=== PATIENT | male | born 1940 | race Caucasian/White ===

== ENCOUNTER → 2017-05-06 14:37 | Outpatient (CLI) | payer MEDICARE, OTHER, SELFPAY ==
--- NOTE | 2017-05-06 | BLA_PTH ---
PATIENT: YUMIKO ROD LOC: [facility] U#:[id number] AGE/SX: 84/M ROOM: RE05/06/[address]: Dr. Didier Potter MD : [id number] BED: DIS: SPEC #: [id number] RECD: 05/07/17 09:14 STATUS: MARGO BRIGITTE #: [id number] LUIS FELIPE: 05/06/17 00:[address]: Didier Potter DEPT: SURGICAL PATHOLOGY RECD BY: Theodore Barros ENTERED: 05/07/17 09:14 SP TYPE: BLADDER BX OTHR DR: Dr. Trevon Astudillo MD Tissues: Urinary bladder, NOS Procedures: Surgery Specimen Level IV HEADER OPERATION: Bladder biopsy PRE-OP DIAGNOSIS: History bladder CA TISSUE SUBMITTED: Bladder biopsy MICROSCOPIC DIAGNOSIS Urinary bladder, biopsy: Chronic cystitis. Urothelium with reactive change. AM:sharita 05/07/17 COMMENT Case has been reviewed in consultation with Dr. Meraz who concurs with the above diagnosis. IDC:SJ MICROSCOPIC DESCRIPTION Slides are reviewed. GROSS DESCRIPTION Received is one container labeled with the patient's name and not further designated. The specimen consists of one irregular fragment of light burns soft tissue that measures 0.1 cm in greatest dimension. The specimen is totally submitted in one cassette. / KAVYA:sharita 05/06/17 TC:3 CPT: 36684
== END ==
PROVIDERS: Family Provider Family Medicine; PCP Family Medicine; Visit Provider Urology
DX: Z85.51 Personal history of malignant neoplasm of bladder (principal)
CPT/HCPCS: 88305

== ENCOUNTER → 2017-08-07 09:56 | Outpatient (CLI) | payer MEDICARE, OTHER, SELFPAY ==
[2017-08-07 12:00] LABS: Hematocrit 45.6 % (40-54); Hemoglobin 15.1 g/dl (13.0-16.5); Mean Corp Hgb Conc 33.1 g/gl (32-36); Mean Corpuscular Hgb 33.7 pg (27.0-32.0); Mean Corpuscular Volume 101.8 fL (80-94); Mean Platelet Vol. 9.8 fl (6.2-12.0); Platelet Count 198 K/mm3 (150-450); RBC Distribution Width SD 48.5 fl (35.1-43.9); Red Blood Count 4.48 M/mm3 (4.6-6.2); Scan Indicated on CBC? Y/N NO; White Blood Count 7.7 K/mm3 (4.4-11.0)
[2017-08-07 12:45] LABS: AST(SGOT) 20 U/L (15-37); Alanine Aminotransfer ALT/SGPT 27 U/L (16-61); Albumin, Serum 3.8 g/dL (3.2-5.0); Alkaline Phosphatase 75 U/L (45-117); Anion Gap 9 (5-15); BUN 37 mg/dL (7-18); BUN/Creat Ratio 21.3 RATIO (10-20); Calcium,Total 9.2 mg/dL (8.5-10.1); Chloride 108 mmol/L (98-107); Cholesterol 140 mg/dL (200); Creatinine, Serum 1.74 mg/dL (0.70-1.30); EST Glomerular Filtration Rate 41 mL/min (>60); Est Glom Filt Rate - Afr Amer 50 mL/min (>60); Globulin 3.9 g/dL (2.2-4.2); Glucose 82 mg/dL (74-106); High Density Lipoprotein 55 mg/dL; Potassium 4.6 mmol/L (3.5-5.1); Protein, Total 7.7 g/dL (6.4-8.2); Sodium Level 140 mmol/L (136-145); Thyroid Stim Hormone (TSH) 0.87 uIU/mL (0.358-3.74); Triglycerides 100 mg/dL; Very Low Density Lipoprotein 20 mg/dL (5-40)
== END ==
PROVIDERS: Family Provider Family Medicine; PCP Family Medicine; Visit Provider Family Medicine
DX: I10 Essential (primary) hypertension (principal); E03.9 Hypothyroidism, unspecified; M35.3 Polymyalgia rheumatica
CPT/HCPCS: 36415; 80053; 80061; 82306; 84443; 85027

== ENCOUNTER → 2017-08-14 11:08 | Outpatient (CLI) | payer MEDICARE, OTHER, SELFPAY ==
[2017-08-14 13:31] LABS: PSA,Total - Annual Screen 5.05 ng/mL (0.00-4.00)
== END ==
PROVIDERS: Family Provider Family Medicine; PCP Family Medicine; Visit Provider Family Medicine
DX: R97.20 Elevated prostate specific antigen [PSA] (principal); Z12.5 Encounter for screening for malignant neoplasm of prostate
CPT/HCPCS: 36415; 84153; G0103

== ENCOUNTER → 2017-11-17 08:21 | Outpatient (CLI) | payer MEDICARE, OTHER, SELFPAY ==
[2017-11-17 10:15] LABS: Vitamin B12 553 pg/mL (211-911)
[2017-11-17 11:01] LABS: Anion Gap 13 (5-15); BUN 30 mg/dL (7-18); BUN/Creat Ratio 18.3 RATIO (10-20); Calcium,Total 9.7 mg/dL (8.5-10.1); Chloride 104 mmol/L (98-107); Creatinine, Serum 1.64 mg/dL (0.70-1.30); EST Glomerular Filtration Rate 44 mL/min (>60); Est Glom Filt Rate - Afr Amer 53 mL/min (>60); Glucose 92 mg/dL (74-106); Potassium 4.2 mmol/L (3.5-5.1); Sodium Level 143 mmol/L (136-145); Thyroid Stim Hormone (TSH) 2.78 uIU/mL (0.358-3.74)
== END ==
PROVIDERS: Family Provider Family Medicine; PCP Family Medicine; Visit Provider Family Medicine
DX: I10 Essential (primary) hypertension (principal); R71.8 Other abnormality of red blood cells; E03.9 Hypothyroidism, unspecified
CPT/HCPCS: 36415; 80048; 82607; 82746; 84443

== ENCOUNTER → 2017-11-19 17:13 | Outpatient (CLI) | payer MEDICARE, OTHER, SELFPAY | PROVIDERS: Family Provider Family Medicine; PCP Family Medicine; Visit Provider Family Medicine | DX: Z87.891 Personal history of nicotine dependence (principal); F17.200 Nicotine dependence, unspecified, uncomplicated | CPT/HCPCS: G0297 ==

== ENCOUNTER → 2018-02-04 14:05 | Outpatient (CLI) | payer MEDICARE, OTHER, SELFPAY ==
[2018-02-04 15:54] LABS: PSA,Total- Diagnostic 8.08 ng/mL (0.0-4.0)
== END ==
PROVIDERS: Family Provider Family Medicine; PCP Family Medicine; Visit Provider Urology
DX: R97.20 Elevated prostate specific antigen [PSA] (principal)
CPT/HCPCS: 36415; 84153

== ENCOUNTER → 2018-05-04 08:58 | Outpatient (CLI) | payer MEDICARE, OTHER, SELFPAY ==
[2018-05-04 11:56] LABS: AST(SGOT) 20 U/L (15-37); Alanine Aminotransfer ALT/SGPT 30 U/L (16-61); Albumin, Serum 3.9 g/dL (3.2-5.0); Alkaline Phosphatase 72 U/L (45-117); Anion Gap 9 (5-15); BUN 34 mg/dL (7-18); BUN/Creat Ratio 21.9 RATIO (10-20); Calcium,Total 9.2 mg/dL (8.5-10.1); Chloride 105 mmol/L (98-107); Creatinine, Serum 1.55 mg/dL (0.70-1.30); EST Glomerular Filtration Rate 47 mL/min (>60); Est Glom Filt Rate - Afr Amer 56 mL/min (>60); Globulin 3.8 g/dL (2.2-4.2); Glucose 78 mg/dL (74-106); PSA,Total- Diagnostic 6.42 ng/mL (0.0-4.0); Potassium 4.1 mmol/L (3.5-5.1); Protein, Total 7.7 g/dL (6.4-8.2); Sodium Level 141 mmol/L (136-145); T4 Free Direct 0.84 ng/dL (0.76-1.46); Thyroid Stim Hormone (TSH) 2.45 uIU/mL (0.358-3.74)
== END ==
PROVIDERS: Family Provider Family Medicine; PCP Family Medicine; Visit Provider Urology
DX: I10 Essential (primary) hypertension (principal); E03.9 Hypothyroidism, unspecified; R97.20 Elevated prostate specific antigen [PSA]
CPT/HCPCS: 36415; 80053; 84153; 84439; 84443

== ENCOUNTER 2018-05-20 09:27 | Observation (INO) | payer MEDICARE, OTHER, SELFPAY ==
[2018-05-20] VITALS (11 sets, daily range): BP systolic 112–143; BP diastolic 59–78; PULSE 72–92; RESP 12–18; TEMP 36.6–37.1; O2SAT 97–100; BMI 20.6; BMI 20.4
--- NOTE | 2018-05-20 09:43 | EKG12_ITS ---
Test Reason : CP Blood Pressure : / mmHG Vent. Rate : 083 BPM Atrial Rate : 083 BPM P-R Int : 140 ms QRS Dur : 086 ms QT Int : 346 ms P-R-T Axes : 052 052 046 degrees QTc Int : 406 ms Sinus rhythm with Premature atrial complexes Early repolarization Otherwise normal ECG Confirmed by SANDY CADET, RICO ([id number]), legal editor SERA FINN ([id number]) on 05/26/2018 11:33:09 AM Referred By: ZURDO Confirmed By:RICO DELGADO MD
--- NOTE | 2018-05-20 09:43 | RAD_ITS ---
STUDY: X-RAY CHEST REASON FOR EXAM: Male, 77 years old. Shortness of breath and chest pain. TECHNIQUE: PA and lateral views of the chest. COMPARISON: None. FINDINGS: EKG electrodes are seen. Hyperinflation. Minimal increased markings in the lateral aspect of the left lung base suggesting mild atelectasis and/or scarring. There is no demonstrated pleural abnormality. Normal size heart. Normal mediastinum and epsinoza. Normal visualized pulmonary arteries. There is atherosclerotic tortuosity of the aortic arch and descending thoracic aorta. There are degenerative changes of the visualized thoracic spine. Normal visualized ribs, clavicles, and shoulders. There is no demonstrated abnormality of the visualized soft tissue structures of the upper abdomen. RAD/Chest PA and Lateral IMPRESSION: Hyperinflation. Mild increased markings in the lateral aspect of the left lower lobe. Electronically Signed: Devin Mackay MD at 10:52 EST , Service support ,
--- NOTE | 2018-05-20 09:50 | ED.DCSUM_ITS ---
- ER Visit Summary Date of Service: 05/20/18 Chief Complaint: Chest pain History of Present Illness: The patient is a 77 M presenting for evaluation secondary to chest pain. Patient reports that this weekend on Friday he had an episode of chest pain. Patient reports that this lasted for couple of hours and then spontaneously resolved. Patient states however that since last night he has had basically left scapular pain. He states that this is worse with taking a deep breath. He denies that it associated with any sort of exertional component. He denies being short of breath lightheaded sweaty or nauseous associated with it. He reports that he has had prior similar episodes in the past that are associated with a muscle strain. Patient has an underlying history of smoking hypertension hyperlipidemia and peripheral vascular disease. He denies any PE risk factors. Patient states that he is never had provocative stress testing or cardiac catheterization. Physical Examination: Vital signs are within normal limits, patient is afebrile. General: Patient is well-nourished well-developed and in no acute distress. Head: Normocephalic, atraumatic Eyes: Pupils equal round and reactive bilaterally, extra occular motion intact bialterally ENT: Moist mucous membranes Neck: Supple, no lymphadenopathy, no JVD, no meningismus CVS: Heart regular rate and rhythm, no murmurs, heart sounds distant, rubs or gallops, radial pulses 2+ bilaterally, PT pulses +1 and bilaterally symmetric Resp: Respirations nondistressed, lung sounds clear bilaterally Abdomen: Soft, nontender, nondistended, no palpable masses, normal bowel sounds Back: Nontender Extremities: Nontender, atraumatic, active full range of motion, no peripheral edema Skin: warm, no rashes, no petechia Neuro: Alert and oriented x 4, CN 2-12 intact, no lateralizing neurological defecits Psyc: Normal affect Test Results: EKG demonstrates sinus rhythm [address] segments normal T waves and occasional PACs. CBC chemistry and troponin are unremarkable. D-dimer found to be positive. Chest x-ray shows some chronic changes, CT angiogram of the chest shows no evidence of pulmonary embolus Emergency Department Course and Treatment: Patient presented for evaluation secondary to chest pain. Patient's workup as noted above was negative except for his d-dimer. This was addressed with CT angiogram which was negative. Patient's pain seems relatively atypical, but his heart score is at least a 4 and he has never had any sort of provocative testing so I do believe that he would benefit from admission. I will discussed the patient with the hospitalist. Disposition: Admission Impression: 1. Chest pain This note was generated with [employer] dictation software. It may contain incorrect words, spelling, and punctuation that were not noted in review of the chart prior to signing ED Disposition - Plan for ED Patient: Referrals: Eric Astudillo MD [Primary Care Provider] -
[2018-05-20 09:52] LABS: Absolute Lymphocyte Count 1.49 X10^3/ul (0.83-4.51); Absolute Neutrophil Count 5.2 X10^3/uL (2.0-7.7); Basophil# 0.02 X10^3/uL; Basophil% 0.3 % (0-1); Hematocrit 45.1 % (40-54); Hemoglobin 14.8 g/dl (13.0-16.5); Lymphocyte # 1.49 X10^3/ul (4.0); Lymphocyte % 18.7 % (19-41); Mean Corp Hgb Conc 32.8 g/gl (32-36); Mean Corpuscular Hgb 33.8 pg (27.0-32.0); Monocyte# 0.86 X10^3/uL; Monocyte% 10.8 % (0-10); Neutrophil # 5.18 X10^3/uL (2.7-7.7); Neutrophil % 64.9 % (47-70); Platelet Count 179 K/mm3 (150-450); RBC Distribution Width CV 12.9 % (11.6-14.6); RBC Distribution Width SD 48.1 fl (35.1-43.9); Red Blood Count 4.38 M/mm3 (4.6-6.2)
[2018-05-20 09:53] LABS: POSITIVE COUNT NO; POSITIVE DIFFERENTIAL NO; POSITIVE MORPHOLOGY NO
[2018-05-20 10:19] LABS: Anion Gap 8 (5-15); BUN 34 mg/dL (7-18); BUN/Creat Ratio 22.1 RATIO (10-20); Calcium,Total 9.2 mg/dL (8.5-10.1); Chloride 104 mmol/L (98-107); Creatinine, Serum 1.54 mg/dL (0.70-1.30); EST Glomerular Filtration Rate 47 mL/min (>60); Est Glom Filt Rate - Afr Amer 57 mL/min (>60); Estimated Creatinine Clearance 39.35 ml/min; Glucose 109 mg/dL (74-106); Sodium Level 138 mmol/L (136-145)
[2018-05-20 10:25] LABS: D-Dimer Quantitative (DVT/PE) 1.72 FEU/ug/m (0.27-0.49)
--- NOTE | 2018-05-20 10:27 | CT_ITS ---
STUDY: CTA CHEST REASON FOR EXAM: Male, 77 years old. Chest pain 3 days ago. Elevated d-dimer. Smokes 1 pack per day. Hypertension. RADIATION DOSAGE (If Supplied By Facility): CTDIvol = ( 5.84 ) mGy, DLP = ( 314.51 ) mGycm TECHNIQUE: The examination was performed with the intravenous administration of . Post-processing of the angiographic images was performed, with multiplanar reformation and MIP (maximum intensity projection) reconstruction. Individualized dose optimization techniques were used for this CT. COMPARISON: None. FINDINGS: Normal enhancement of the main pulmonary artery and right and left pulmonary arteries. Normal enhancement of the bilateral peripheral pulmonary arteries. There is no demonstrated pulmonary embolism. Atherosclerotic calcifications along the transverse aorta. No thoracic aortic aneurysm. Noncalcified intramural plaques in the descending thoracic aorta. There is no demonstrated aortic dissection. Normal heart and pericardium. Calcified lymph nodes in the subcarinal space. No hilar lymphadenopathy. Normal hilar regions. Normal visualized trachea and bronchi. The lungs are well expanded. No suspicious pulmonary nodules or infiltrates. Minimal curvilinear subsegmental atelectasis and/or scarring in the posterior lung bases. Asymmetric posterior pleural thickening. Normal chest wall structures. No acute osseous abnormality. Normal visualized upper abdomen. CT/CTA Chest W/WO Contrast IMPRESSION: 1. No CTA evidence of pulmonary thromboemboli, thoracic aortic aneurysm or thoracic aortic dissection. 2. Calcified lymph nodes in the subcarinal space. 3. No suspicious pulmonary nodules, infiltrates or acute abnormality of the chest. Electronically Signed: Ken Valdivia MD at 11:22 EST , Service support ,
--- NOTE | 2018-05-20 11:56 | NURSING ---
DR LISSA RENNER
--- NOTE | 2018-05-20 12:04 | NURSING ---
YASMINU CP SEMENTI OBS
--- NOTE | 2018-05-20 12:06 | PCM.HP.STD ---
Problem List (1) Chest pain Status: Acute (2) HTN (hypertension) Status: Chronic (3) HLD (hyperlipidemia) Status: Chronic (4) Hypothyroidism Status: Chronic (5) GERD (gastroesophageal reflux disease) Status: Chronic (6) Colon polyps Status: Inactive Comment: has had excision (7) Bladder cancer Status: Chronic Comment: tumor resected by Dr. Potter (8) Peripheral vascular disease Status: Chronic Comment: has had bypass surgery (9) Tobacco dependence Status: Chronic History of Present Illness Date of Admission: 05/20/18 Chief Complaint: chest pain The patient is a 77 year old M with a past medical history of hypertension, hypothyroidism, GERD, H. pylori infection treated with antibiotics, hyperlipidemia, colon polyps, bladder cancer with resection by Dr. Potter, peripheral vascular disease S/P bypass surgery many years ago who presented to the ED at [facility] on 05/20/18 c/o chest pain. The chest pain started this past Friday after eating pancakes. It lasted several hours and resolved on its own. The pain increased with a deep breath and it was substernal. A day or so later he developed left scapular/trapezius ridge pain on the left. He denies shortness of breath, diaphoresis or nausea with the pain. He denies any FH of CVD. The pain in the trapezius ridge/scapular area has been constant for the past few days. Vital signs of presentation to the emergency room were temperature 98, pulse rate 92, blood pressure 118/78, respiratory rate 18 and he was 99% saturated on room air. CBC was unremarkable with the exception of a mildly increased MCV at 103. D-dimer was elevated at 1.72. Electrolytes were within normal limits and the BUN was 34 with a creatinine of 1. 54. This is within his baseline. He is unaware that he has chronic renal failure stage III. Troponin was less than 0.015. His EKG showed mild diffuse ST elevation with WA segment depression suspicious for possible pericarditis. Chest x-ray showed hyperinflation with mild increased markings in the lateral aspect of the left lower lobe. A CTA of the chest was done because of an elevated d-dimer and was negative for pulmonary emboli, thoracic aneurysm or dissection. There were no suspicious pulmonary nodules, infiltrates or acute abnormalities. He is being admitted to a monitored bed on PCU and serial cardiac enzymes will be obtained. Patient reports to me that he still has pain in his left lower extremity with ambulation that goes away if he stops for a minute. Will order a chemical nuclear stress test in the a.m. if the serial cardiac enzymes are negative. Past Medical History Past Medical History (Chronic Problems): Chronic Problems HTN (hypertension) (Chronic) HLD (hyperlipidemia) (Chronic) Hypothyroidism (Chronic) GERD (gastroesophageal reflux disease) (Chronic) Bladder cancer (Chronic) tumor resected by Dr. Potter Peripheral vascular disease (Chronic) has had bypass surgery Tobacco dependence (Chronic) Allergies No Known Allergies Allergy (Verified 05/20/18 09:31) Home Medications: Ambulatory Orders Medication Instructions Recorded Aspirin [Adult Low Dose Aspirin EC] 81 mg PO DAILY 12/22/14 Levothyroxine [Synthroid] 75 mcg PO DAILY 12/22/14 Simvastatin [Zocor] 10 mg PO QHS 12/22/14 predniSONE tablet 2.5 mg PO DAILY 12/22/14 Lisinopril [Zestril] 20 mg PO BID 01/24/15 Tamsulosin HCl [Flomax] 0.4 mg PO DAILY 01/24/15 Surgical History: tonsillectomy, - - Lower extremity vascular bypass surgery, excision of colon polyps Psychiatric History: No pertinent psych hx Lives: Spouse/ Significant Other Smoking Status: Current every day smoker - Started smoking at the age of 27 Tobacco Use: Cigarettes - 1 pack/day Alcohol: Occasional Drugs: None - *Family History Maternal History Items: Cancer - His mother of breast cancer in her mid 70s Paternal History Items: Cancer - Father passed at the age of 69 with liver cancer Sibling History Items: Cancer - Brother of pancreatic cancer at the age of 86 Review of Systems Constitutional: Denies: Chills, Fever, Weight Change HEENT: Denies: Head Aches, Sinus Congestion, Sinus Drainage Cardiovascular: Reports: Chest Pain. Denies: Edema, Light Headedness, Palpitations, Paroxysmal Noc. Dyspnea, Syncope Respiratory: Denies: Cough, Pleuritic Pain, Shortness of Breath, Shortness of breath at rest, Sputum production Gastrointestinal: Denies: Abdominal Pain, Nausea, Vomiting Genitourinary: Reports: - - he is scheduled for a prostate bx next week by Dr. Potter. Denies: Dysuria Musculoskeletal: Denies: Joint Pain, Joint Tenderness Skin: Denies: Jaundice, Rash, Wounds Neurological: Denies: Numbness, Tingling, Focal weakness Psychiatric: Denies: Anxiety, Depression, Homicidal Ideations, Suicidal Ideations Endocrine: Denies: Change in Body Habitus Hematologic/ Lymphatic: Denies: Easy Bruising, Easy Bleeding, Hx of blood clot VTE Information - Inpt Only VTE Present on Admission: No VTE Mechan Device Prophylaxis: SCD's, Knee High ARNOLD Hose VTE Pharm Prophylaxis ordered?: Yes Patient Problems: Active and Suspected Problems Chest pain (Acute) - Physical Exam General: Alert, Oriented x3, Cooperative, No apparent distress, Well developed, Well nourished HEENT: Atraumatic, PERRLA, EOMI, Normocephalic Oral: Moist Mucosa, No Gingival or Mucosal Lesions/ Ulcerations Neck: Supple, No JVD, Negative Carotid Bruits, No Nodes, Trachea Midline, - - Carotids have brisk upstroke and good pulse volume bilaterally Lungs: Clear to auscultation, No rhonchi, No wheeze, No rales, Diminished Cardiovascular: Regular rate, Regular Rhythm, Normal S1, Normal S2, No murmurs, No Gallop Abdomen: Bowel Sounds Present, Soft, Non Tender Extremities: No cyanosis, No edema, Capillary Refill Less than 3 Seconds, No Calf Tenderness, Clubbing, Diminished Peripheral Pulses - the popliteal pulses and the pedal pulses are very weak. no femoral bruits or abd bruits appreciated Skin: No rashes, No breakdown Musculoskeletal: No Tenderness to Palpation of Joints or Extremities, No Muscle Wasting Neurological: Cranial nerves II-XII grossly intact, Neuro grossly intact Psych/Mental Status: Normal Affect, Appropriate Vital Signs Temp Pulse Resp BP Pulse Ox 98 F 77 12 113/72 97 05/20/18 09:29 05/20/18 11:32 05/20/18 11:32 05/20/18 11:32 05/20/18 11:32 Oxygen Delivery Method Room Air Weight: 148 lb Body Mass Index (BMI) 20.6 Laboratory Tests Past 24 Hrs 05/20/18 05/20/18 05/20/18 09:35 09:35 09:35 WBC 8.0 RBC 4.38 L Hgb 14.8 Hct 45.1 MCV 103.0 H MCH 33.8 H MCHC 32.8 RDW 12.9 RDW Differential 48.1 H Plt Count 179 MPV 10.0 Immature Gran % (Auto) 0.300 Neut % (Auto) 64.9 Lymph % (Auto) 18.7 L Harney % (Auto) 10.8 H Eos % (Auto) 5.0 Baso % (Auto) 0.3 Absolute Neuts (auto) 5.2 Absolute Lymphs (auto) 1.49 Total Counted Not Reportable D-Dimer Quant (PE/DVT) 1.72 H* Sodium 138 Potassium 4.0 Chloride 104 Carbon Dioxide 26.0 Anion Gap 8 BUN 34 H Creatinine 1.54 H Estim Creat Clear Calc 39.35 Est GFR (MDRD) Af Amer 57 L Est GFR (MDRD) Non-Af 47 L BUN/Creatinine Ratio 22.1 H Glucose 109 H Calcium 9.2 Troponin I < 0.015 Assessment/Plan All Active Problems Chest pain (Acute) Impressions 1. atypical CP in a pt with multiple risk factors for CAD which include smoking, HTN, HLD, male > 45 YOA and prior hx of PVD requiring bypass on the 2. Hypertension 3. Hyperlipidemia 4. History of bladder cancer 5. Tobacco dependence 6. GERD 7. Hypothyroidism 8. History of benign colon polyps 9. Peripheral vascular disease 10. Stage III chronic renal failure Admit to a monitored bed on PCU ASA 81 mg PO daily SL NTG 0.4 mg PRN chest pain Serial Cardiac Enzymes Stat EKG PRN CP Chemical nuclear stress test in the AM if the cardiac enzymes are negative DVT prophylaxis ordered Lipid panel in the a.m. Code Visit OBSV E&M: 27884 Initial observation care L3
--- NOTE | 2018-05-20 13:45 | ECHOD_ITS ---
Reason For Study: CHEST PAIN Procedure This was a 2D Doppler, Color Flow transthoracic echocardiogram. Exam performed portable in patient room. Left Ventricle Normal size and thickness. The estimated ejection fraction is 65 %. Stage 1 diastolic dysfunction. No regional wall motion abnormalities noted. Right Ventricle Normal size and thickness. Normal systolic function. Atria Normal left atrium. Normal right atrium. Normal atrial septum. Mitral Valve The mitral valve is structurally normal. No prolapse or stenosis seen. Tricuspid Valve Normal tricuspid valve. Unable to estimate RV systolic pressure due to inadequate jet, pulmonary artery pressure probably normal. Aortic Valve Normal aortic valve. Trisinus/trileaflet aortic valve. Pulmonic Valve Normal pulmonic valve. Great Vessels Normal aortic root. Normal arch. Normal inferior vena cava. Inferior vena cava collapse with sniff. Pericardium/Pleural No pericardial effusion. MMode/2D Measurements & Calculations LVIDd: 4.5 cm IVSd: 0.99 cm Ao root diam: 2.9 cm LVIDs: 3.1 cm LVPWd: 1.0 cm LA dimension: 3.0 cm RVDd: 3.3 cm FS: 31.6 % LAV(MOD-bp): 27.3 ml LVAd ap4: 25.6 cm2 SV(MOD-sp4): 45.0 ml LAV(MOD-bp) Indexed: 14.7 ml/m2 EDV(MOD-sp4): 72.5 ml LAV(MOD-sp2): 24.6 ml EDV(sp4-el): 74.9 ml LAV(MOD-sp4): 25.4 ml LVAs ap4: 14.2 cm2 ESV(MOD-sp4): 27.5 ml ESV(sp4-el): 29.0 ml EF(MOD-sp4): 62.0 % EF(sp4-el): 61.3 % SV(sp4-el): 45.9 ml LA A4 area: 13.0 cm2 RA A4 area: 11.4 cm2 Time Measurements MV dec time: 0.27 sec Doppler Measurements & Calculations MV E max jamaal: 60.9 cm/sec Lat Peak E' Jamaal: 11.8 cm/sec Med Peak E' Jamaal: 7.7 cm/sec MV A max jamaal: 79.3 cm/sec E/E' lat: 5.2 E/E' med: 8.0 MV E/A: 0.77 Ao V2 max: 126.2 cm/sec LV V1 max: 126.7 cm/sec PA V2 max: 91.8 cm/sec Ao max P.4 mmHg LV V1 max P.4 mmHg Interpretation Summary The estimated ejection fraction is 65 %. Stage 1 diastolic dysfunction. Unable to estimate RV systolic pressure due to inadequate jet, pulmonary artery pressure probably normal. The study was technically difficult. There is no comparison study available. Ordering Physician: Cata Vela Referring Physician: GABO HARPER Performed By: Rhonda Marcelino RDCS
--- NOTE | 2018-05-20 13:45 | EKG12_ITS ---
Test Reason : CP ADMISSION Blood Pressure : / mmHG Vent. Rate : 084 BPM Atrial Rate : 084 BPM P-R Int : 140 ms QRS Dur : 084 ms QT Int : 350 ms P-R-T Axes : 055 058 043 degrees QTc Int : 413 ms Normal sinus rhythm Abnormal ECG Confirmed by SANDY CADET, RICO ([id number]), legal editor SERA FINN ([id number]) on 05/22/2018 9:18:46 AM Referred By: LISSA Confirmed By:RICO DELGADO MD
[2018-05-20 14:16] LABS: Magnesium 2.1 mg/dL (1.6-2.6)
[2018-05-20] MEDS: Atorvastatin Calcium 10 MG Tablet 5 MG PO (23:23)
[2018-05-20] MEDS: Lisinopril 20 MG Tablet PO (23:29)
[2018-05-21 03:00] VITALS: PULSE 97
[2018-05-21 05:00] VITALS: BP 106/54; PULSE 79; RESP 16; TEMP 36.6; O2SAT 95
[2018-05-21] MEDS: Levothyroxine 75 MCG Tablet PO (05:06)
[2018-05-21] MEDS: Lisinopril 20 MG Tablet PO (05:06)
[2018-05-21] MEDS: Aspirin E.C. 81 MG Tablet PO (05:06)
[2018-05-21] MEDS: 0.9% NaCl Peripheral Flush Adult/Peds IV (05:07)
--- NOTE | 2018-05-21 05:55 | EKG12_ITS ---
Test Reason : AM EKG Blood Pressure : / mmHG Vent. Rate : 067 BPM Atrial Rate : 067 BPM P-R Int : 148 ms QRS Dur : 092 ms QT Int : 376 ms P-R-T Axes : 065 062 049 degrees QTc Int : 397 ms Normal sinus rhythm Normal ECG When compared with ECG of 20-MAY-2018 13:34, MANUAL COMPARISON REQUIRED, DATA IS UNCONFIRMED Confirmed by SANDY CADET, RICO ([id number]), editor newspaper SERA FINN ([id number]) on 05/22/2018 9:28:07 AM Referred By: LISSA Confirmed By:RICO DELGADO MD
[2018-05-21 06:10] LABS: Prothrombin Time (Protime)PT. 13.3 SECONDS (11.7-14.9)
[2018-05-21 06:11] LABS: Partial Thromboplast Time 30.3 Seconds (24.1-36.2)
[2018-05-21 06:21] LABS: Hematocrit 43.1 % (40-54); Hemoglobin 14.5 g/dl (13.0-16.5); Mean Corp Hgb Conc 33.6 g/gl (32-36); Mean Corpuscular Hgb 34.6 pg (27.0-32.0); Mean Corpuscular Volume 102.9 fL (80-94); Platelet Count 197 K/mm3 (150-450); RBC Distribution Width CV 12.4 % (11.6-14.6); RBC Distribution Width SD 46.3 fl (35.1-43.9); Red Blood Count 4.19 M/mm3 (4.6-6.2); White Blood Count 7.4 K/mm3 (4.4-11.0)
[2018-05-21 06:22] LABS: Mean Platelet Vol. 9.8 fl (6.2-12.0)
[2018-05-21 06:25] LABS: Scan Indicated on CBC? Y/N NO
[2018-05-21 06:35] LABS: AST(SGOT) 16 U/L (15-37); Alanine Aminotransfer ALT/SGPT 25 U/L (16-61); Albumin, Serum 3.2 g/dL (3.2-5.0); Alkaline Phosphatase 67 U/L (45-117); Anion Gap 8 (5-15); BUN 30 mg/dL (7-18); BUN/Creat Ratio 19.4 RATIO (10-20); Bilirubin, Direct 0.07 mg/dL (0.00-0.30); Calcium,Total 8.8 mg/dL (8.5-10.1); Chloride 107 mmol/L (98-107); Creatinine, Serum 1.55 mg/dL (0.70-1.30); EST Glomerular Filtration Rate 47 mL/min (>60); Est Glom Filt Rate - Afr Amer 56 mL/min (>60); Estimated Creatinine Clearance 38.67 ml/min; Globulin 4.2 g/dL (2.2-4.2); Glucose 90 mg/dL (74-106); Potassium 4.5 mmol/L (3.5-5.1); Protein, Total 7.4 g/dL (6.4-8.2); Sodium Level 141 mmol/L (136-145); Thyroid Stim Hormone (TSH) 2.04 uIU/mL (0.358-3.74)
[2018-05-21 06:54] VITALS: PULSE 77
[2018-05-21 09:08] LABS: Cholesterol 136 mg/dL (200); High Density Lipoprotein 52 mg/dL; Triglycerides 79 mg/dL; Very Low Density Lipoprotein 16 mg/dL (5-40)
[2018-05-21 10:46] VITALS: BP 108/44; PULSE 72; RESP 16; TEMP 36.3; O2SAT 99
[2018-05-21] MEDS: predniSONE 5 MG Tablet 2.5 MG PO (10:51)
[2018-05-21 10:57] VITALS: PULSE 80
--- NOTE | 2018-05-21 13:56 | DCINST_ITS ---
- Discharge Diagnoses Current Active Problems: Current Active and Chronic Problems Chest pain (Acute) HTN (hypertension) (Chronic) HLD (hyperlipidemia) (Chronic) Hypothyroidism (Chronic) GERD (gastroesophageal reflux disease) (Chronic) Bladder cancer (Chronic) tumor resected by Dr. Potter Peripheral vascular disease (Chronic) has had bypass surgery Tobacco dependence (Chronic) You will use the following diet at home:: Cardiac Your food should be the consistency of: Regular Your liquids should be the consistency of: Regular/Thin Discharge Activity: Return to Normal Activity May resume sexual activity in: No Restrictions Call your doctor if you observe: Fever of 101 or Higher, Inability to urinate, Shortness of breath, Dizziness, Fainting spells, Swelling in the ankles, Chest pain, Calf discomfort, - - cold left leg or numbness or pain in the left leg when it is elevated Instructions: Discharge Instructions for Peripheral Vascular Disease, Tips for Quitting Smoking (Cardiovascular), Why Do You Smoke?, Planning to Quit Smoking, Getting Support for Quitting Smoking Additional Instructions: The stress test was negative and there is no evidence that you have significant coronary artrery disease. The heart rhythm has been normal throughout your admission to the hospital. The ECHO (ultrasound of the heart) showed that your heart squeezes normally but it does not relax as well as it should.......this is often seen in patient's with long standing high blood pressure, marina if has not been well controlled at times. Make sure to take your meds as instructed. The cholesterol is very well controlled with the Simvastatin. You do have stage 3 kidney failure and I am referring you to Dr. Mary Chaney who is a kidney specialist.....we do not want this to get any worse and have you end up on dialysis. My last concern is the pain you get in the left leg with walking.....this is called claudication and it is a sign that the bypass graft may be closing up or you have developed disease in the other arteries in your leg. There is a vascular surgeon.....his name is Dr. Moisés Lay, and he has office hours in the hospital on Wednesdays. I think it would be a good idea to follow up him in the future. Allergies/Adverse Reactions: Allergies No Known Allergies Allergy (Verified 05/20/18 09:31) Medications to take at Discharge Aspirin [Adult Low Dose Aspirin EC] 81 mg PO DAILY 12/22/14 Levothyroxine [Synthroid] 75 mcg PO DAILY 12/22/14 Simvastatin [Zocor] 10 mg PO QHS 12/22/14 predniSONE tablet 2.5 mg PO DAILY 12/22/14 Lisinopril [Zestril] 20 mg PO BID 01/24/15 Tamsulosin HCl [Flomax] 0.4 mg PO DAILY 01/24/15 Primary Care Physician: Eric Astudillo MD [Primary Care Provider] - Please follow up with your Primary Care Physician in: 1 week Test Results: Test results from this visit will be discussed in further detail at your follow- up appointment, if applicable. Please Follow Up With: Mary Chaney DO When: in the next month or so Please Follow Up With: Didier Potter MD When: as previously arranged Proposed Discharge Date: 05/21/18
--- NOTE | 2018-05-21 13:59 | PCM.DC.SUM ---
Discharge Date and Diagnosis - Problem List Patient Problems: Active and Suspected Problems Chest pain (Acute) Date of Admission: 05/20/18 Date of Discharge: 05/21/18 - Primary Discharge Diagnosis Active and Suspected Problems Chest pain (Acute) - non-cardiac - Secondary Discharge Diagnosis Chronic Problems HTN (hypertension) (Chronic) HLD (hyperlipidemia) (Chronic) Hypothyroidism (Chronic) GERD (gastroesophageal reflux disease) (Chronic) Bladder cancer (Chronic) tumor resected by Dr. Potter Peripheral vascular disease (Chronic) has had bypass surgery in the remote past Tobacco dependence (Chronic) Stage III chronic renal failure Hospital Course and Treatment Imaging Results: 05/21/18 05:55 Nuclear Stress Test - Chemical [NM] AM (NON MEDS) Clinical Impression(s) from Imaging Studies Chest X-Ray 05/20/18 09:43 IMPRESSION: Hyperinflation. Mild increased markings in the lateral aspect of the left lower lobe. Electronically Signed: Devin Mackay MD at 10:52 EST , Service support , Chest CTA 05/20/18 10:27 IMPRESSION: 1. No CTA evidence of pulmonary thromboemboli, thoracic aortic aneurysm or thoracic aortic dissection. 2. Calcified lymph nodes in the subcarinal space. 3. No suspicious pulmonary nodules, infiltrates or acute abnormality of the chest. Electronically Signed: Ken Valdivia MD at 11:22 EST , Service support , none Operations: None Procedures: 2-D Echocardiogram, Stress test Summary of Care Provided: The patient is a 77 year old M with a past medical history of tobacco dependence, hypertension, hypothyroidism, XRAY evidence of COPD, GERD, H. pylori infection treated with antibiotics, hyperlipidemia, colon polyps, bladder cancer with resection by Dr. Potter and peripheral vascular disease S/P bypass surgery many years ago who presented to the ED at [facility] on 05/20/18 c/o chest pain. The chest pain started Friday after eating pancakes. It lasted several hours and resolved on its own. The pain increased with a deep breath and it was substernal. It was not associated with N/V/diaphoresis or SOB. A day or so later he developed left scapular/trapezius ridge pain on the left. He denies any FH of CVD. The pain in the trapezius ridge/scapular area had been constant for the past few days. Vital signs of presentation to the emergency room were temperature 98, pulse rate 92, blood pressure 118/78, respiratory rate 18 and he was 99% saturated on room air. CBC was unremarkable with the exception of a mildly increased MCV at 103. D-dimer was elevated at 1.72. Electrolytes were within normal limits and the BUN was 34 with a creatinine of 1.54 which is within his baseline. He is unaware that he has chronic renal failure stage III. Troponin was less than 0.015. His EKG showed mild diffuse ST elevation with TX segment depression suspicious for possible pericarditis. Chest x-ray showed hyperinflation with mild increased markings in the lateral aspect of the left lower lobe. A CTA of the chest was done because of an elevated d-dimer and was negative for pulmonary emboli, thoracic aneurysm or dissection. There were no suspicious pulmonary nodules, infiltrates or acute abnormalities. He was admitted to a monitored bed on PCU and serial cardiac enzymes were obtained. He reported to me that he still has pain in his left lower extremity with ambulation that goes away if he stops for a minute. A chemical nuclear stress test was ordered rather than a treadmill in light of the claudication. The stress test was negative for ischemia. An ECHO showed a normal EF of 65% with stage I diastolic dysfunction and no significant valvular disease. Telemetry showed normal sinus rhythm with no significant ectopy. He was discharged home on 03/20/2019 and will follow up with Dr. Arevalo in the office in 1 week. I made him aware that his lab is consistent with stage III chronic renal failure and I recommended follow-up with a office worker and he was agreeable. He was referred to Dr. Chaney. He has an appt with Dr. Potter next week for a prostate bx. In the future I recommend he follow up with a vascular surgeon regarding claudication with ambulation in the left leg. Smoking cessation counseling was provided during his admission to [facility]. PHYSICAL EXAM: GENERAL: alert, oriented X 3, Cooperative, NAD ORAL: moist mucosa, no mucosal lesions NECK: No JVD, supple, trachea midline LUNGS: CTA, symmetric chest expansion, diminished breath sounds HEART: RRR, Normal S1 and S2, no rub, no gallop, no murmurs ABDOMEN: soft, NT, ND, BS present, no guarding with palpation EXTREMITIES: no edema, no cyanosis, no calf tenderness, positive clubbing of the nails, diminished peripheral pulses......even the popliteals were barely palpable SKIN: No rashes, no breakdown NEUROLOGIC: no focal neurologic deficits PSYCH: appropriate, normal affect, pleasant This note was generated with COM [employer] dictation software. It may contain incorrect words, spelling, and punctuation that were not noted in checking the note before signing. Patient Problems: Active and Suspected Problems Chest pain (Acute) - Physical Exam Vital Signs Temp Pulse Resp BP Pulse Ox 97.4 F L 80 16 108/44 L 99 05/21/18 10:46 05/21/18 10:57 05/21/18 10:46 05/21/18 10:46 05/21/18 10:46 Oxygen Delivery Method Room Air Weight: 146 lb 6.191 oz Body Mass Index (BMI) 20.4 Intake and Output for Last 24 Hours 05/19/18 05/20/18 05/21/18 23:59 23:59 23:59 Intake Total 400 / 400 240 / 240 Balance 400 / 400 240 / 240 Laboratory Tests Past 24 Hrs 05/20/18 05/20/18 05/20/18 09:35 13:35 15:55 WBC RBC Hgb Hct MCV MCH MCHC RDW RDW Differential Plt Count MPV PT INR APTT Sodium Potassium Chloride Carbon Dioxide Anion Gap BUN Creatinine Estim Creat Clear Calc Est GFR (MDRD) Af Amer Est GFR (MDRD) Non-Af BUN/Creatinine Ratio Glucose Calcium Magnesium 2.1 Total Bilirubin Direct Bilirubin AST ALT Alkaline Phosphatase Troponin I < 0.015 < 0.015 Total Protein Albumin Globulin Triglycerides Cholesterol LDL Cholesterol VLDL Cholesterol HDL Cholesterol TSH 05/21/18 05/21/18 05/21/18 05:30 05:30 05:30 WBC 7.4 RBC 4.19 L Hgb 14.5 Hct 43.1 MCV 102.9 H MCH 34.6 H MCHC 33.6 RDW 12.4 RDW Differential 46.3 H Plt Count 197 MPV 9.8 PT 13.3 INR 1.0 APTT 30.3 Sodium 141 Potassium 4.5 Chloride 107 Carbon Dioxide 26.0 Anion Gap 8 BUN 30 H Creatinine 1.55 H Estim Creat Clear Calc 38.67 Est GFR (MDRD) Af Amer 56 L Est GFR (MDRD) Non-Af 47 L BUN/Creatinine Ratio 19.4 Glucose 90 Calcium 8.8 Magnesium Total Bilirubin 0.30 Direct Bilirubin 0.07 AST 16 ALT 25 Alkaline Phosphatase 67 Troponin I Total Protein 7.4 Albumin 3.2 Globulin 4.2 Triglycerides Cholesterol LDL Cholesterol VLDL Cholesterol HDL Cholesterol TSH 2.04 05/21/18 05:30 WBC RBC Hgb Hct MCV MCH MCHC RDW RDW Differential Plt Count MPV PT INR APTT Sodium Potassium Chloride Carbon Dioxide Anion Gap BUN Creatinine Estim Creat Clear Calc Est GFR (MDRD) Af Amer Est GFR (MDRD) Non-Af BUN/Creatinine Ratio Glucose Calcium Magnesium Total Bilirubin Direct Bilirubin AST ALT Alkaline Phosphatase Troponin I Total Protein Albumin Globulin Triglycerides 79 Cholesterol 136 LDL Cholesterol 68 VLDL Cholesterol 16 HDL Cholesterol 52 TSH Discharge Activity: Return to Normal Activity May resume sexual activity in: No Restrictions Call your doctor if you observe: Fever of 101 or Higher, Inability to urinate, Shortness of breath, Dizziness, Fainting spells, Swelling in the ankles, Chest pain, Calf discomfort, - - cold left leg or numbness or pain in the left leg when it is elevated Home Medications: Medications to take at Discharge Aspirin [Adult Low Dose Aspirin EC] 81 mg PO DAILY 12/22/14 Levothyroxine [Synthroid] 75 mcg PO DAILY 12/22/14 Simvastatin [Zocor] 10 mg PO QHS 12/22/14 predniSONE tablet 2.5 mg PO DAILY 12/22/14 Lisinopril [Zestril] 20 mg PO BID 01/24/15 Tamsulosin HCl [Flomax] 0.4 mg PO DAILY 01/24/15 Primary Care Physician: Eric Astudillo MD [Primary Care Provider] - Please follow up with your Primary Care Physician in: 1 week Please Follow Up With: Mary Chaney DO When: in the next month or so Please Follow Up With: Didier Potter MD When: as previously arranged Patient Instructions: Tips for Quitting Smoking (Cardiovascular), Why Do You Smoke?, Planning to Quit Smoking, Getting Support for Quitting Smoking, Discharge Instructions for Peripheral Vascular Disease Disposition: Home Minutes spent on discharge:: 30 Patient Condition:: Good Medical Necessity - Tobacco Use Smoking Status: Current every day smoker Tobacco Use: Cigarettes Meaningful Use Info Meaningful Use Diagnoses (Choose all that apply): None applicable Code Visit OBSV E&M: 35014 Observation care discharge
--- NOTE | 2018-05-21 14:16 | DS.PCM_ITS ---
Discharge Date and Diagnosis - Problem List Patient Problems: Active and Suspected Problems Chest pain (Acute) Date of Admission: 05/20/18 Date of Discharge: 05/21/18 - Primary Discharge Diagnosis Active and Suspected Problems Chest pain (Acute) - non-cardiac - Secondary Discharge Diagnosis Chronic Problems HTN (hypertension) (Chronic) HLD (hyperlipidemia) (Chronic) Hypothyroidism (Chronic) GERD (gastroesophageal reflux disease) (Chronic) Bladder cancer (Chronic) tumor resected by Dr. Potter Peripheral vascular disease (Chronic) has had bypass surgery in the remote past Tobacco dependence (Chronic) Stage III chronic renal failure Hospital Course and Treatment Imaging Results: 05/21/18 05:55 Nuclear Stress Test - Chemical [NM] AM (NON MEDS) Clinical Impression(s) from Imaging Studies Chest X-Ray 05/20/18 09:43 IMPRESSION: Hyperinflation. Mild increased markings in the lateral aspect of the left lower lobe. Electronically Signed: Devin Mackay MD at 10:52 EST , Service support , Chest CTA 05/20/18 10:27 IMPRESSION: 1. No CTA evidence of pulmonary thromboemboli, thoracic aortic aneurysm or thoracic aortic dissection. 2. Calcified lymph nodes in the subcarinal space. 3. No suspicious pulmonary nodules, infiltrates or acute abnormality of the chest. Electronically Signed: Ken Valdivia MD at 11:22 EST , Service support , none Operations: None Procedures: 2-D Echocardiogram, Stress test Summary of Care Provided: The patient is a 77 year old M with a past medical history of tobacco dependence, hypertension, hypothyroidism, XRAY evidence of COPD, GERD, H. pylori infection treated with antibiotics, hyperlipidemia, colon polyps, bladder cancer with resection by Dr. Potter and peripheral vascular disease S/P bypass surgery many years ago who presented to the ED at [facility] on 05/20/18 c/o chest pain. The chest pain started Friday after eating pancakes. It lasted several hours and resolved on its own. The pain increased with a deep breath and it was substernal. It was not associated with N/V/diaphoresis or SOB. A day or so later he developed left scapular/trapezius ridge pain on the left. He denies any FH of CVD. The pain in the trapezius ridge/scapular area had been constant for the past few days. Vital signs of presentation to the emergency room were temperature 98, pulse rate 92, blood pressure 118/78, respiratory rate 18 and he was 99% saturated on room air. CBC was unremarkable with the exception of a mildly increased MCV at 103. D-dimer was elevated at 1.72. Electrolytes were within normal limits and the BUN was 34 with a creatinine of 1.54 which is within his baseline. He is unaware that he has chronic renal failure stage III. Troponin was less than 0.015. His EKG showed mild diffuse ST elevation with HI segment depression suspicious for possible pericarditis. Chest x-ray showed hyperinflation with mild increased markings in the lateral aspect of the left lower lobe. A CTA of the chest was done because of an elevated d-dimer and was negative for pulmonary emboli, thoracic aneurysm or dissection. There were no suspicious pulmonary nodules, infiltrates or acute abnormalities. He was admitted to a monitored bed on PCU and serial cardiac enzymes were obtained. He reported to me that he still has pain in his left lower extremity with ambulation that goes away if he stops for a minute. A chemical nuclear stress test was ordered rather than a treadmill in light of the claudication. The stress test was negative for ischemia. An ECHO showed a normal EF of 65% with stage I diastolic dysfunction and no significant valvular disease. Telemetry showed normal sinus rhythm with no significant ectopy. He was discharged home on 03/20/2019 and will follow up with Dr. Arevalo in the office in 1 week. I made him aware that his lab is consistent with stage III chronic renal failure and I recommended follow-up with a fish hatchery specialist and he was agreeable. He was referred to Dr. Chaney. He has an appt with Dr. Potter next week for a prostate bx. In the future I recommend he follow up with a vascular surgeon regarding claudication with ambulation in the left leg. Smoking cessation counseling was provided during his admission to [facility]. PHYSICAL EXAM: GENERAL: alert, oriented X 3, Cooperative, NAD ORAL: moist mucosa, no mucosal lesions NECK: No JVD, supple, trachea midline LUNGS: CTA, symmetric chest expansion, diminished breath sounds HEART: RRR, Normal S1 and S2, no rub, no gallop, no murmurs ABDOMEN: soft, NT, ND, BS present, no guarding with palpation EXTREMITIES: no edema, no cyanosis, no calf tenderness, positive clubbing of the nails, diminished peripheral pulses......even the popliteals were barely palpable SKIN: No rashes, no breakdown NEUROLOGIC: no focal neurologic deficits PSYCH: appropriate, normal affect, pleasant This note was generated with [employer] dictation software. It may contain incorrect words, spelling, and punctuation that were not noted in checking the note before signing. Patient Problems: Active and Suspected Problems Chest pain (Acute) - Physical Exam Vital Signs Temp Pulse Resp BP Pulse Ox 97.4 F L 80 16 108/44 L 99 05/21/18 10:46 05/21/18 10:57 05/21/18 10:46 05/21/18 10:46 05/21/18 10:46 Oxygen Delivery Method Room Air Weight: 146 lb 6.191 oz Body Mass Index (BMI) 20.4 Intake and Output for Last 24 Hours 05/19/18 05/20/18 05/21/18 23:59 23:59 23:59 Intake Total 400 / 400 240 / 240 Balance 400 / 400 240 / 240 Laboratory Tests Past 24 Hrs 05/20/18 05/20/18 05/20/18 09:35 13:35 15:55 WBC RBC Hgb Hct MCV MCH MCHC RDW RDW Differential Plt Count MPV PT INR APTT Sodium Potassium Chloride Carbon Dioxide Anion Gap BUN Creatinine Estim Creat Clear Calc Est GFR (MDRD) Af Amer Est GFR (MDRD) Non-Af BUN/Creatinine Ratio Glucose Calcium Magnesium 2.1 Total Bilirubin Direct Bilirubin AST ALT Alkaline Phosphatase Troponin I < 0.015 < 0.015 Total Protein Albumin Globulin Triglycerides Cholesterol LDL Cholesterol VLDL Cholesterol HDL Cholesterol TSH 05/21/18 05/21/18 05/21/18 05:30 05:30 05:30 WBC 7.4 RBC 4.19 L Hgb 14.5 Hct 43.1 MCV 102.9 H MCH 34.6 H MCHC 33.6 RDW 12.4 RDW Differential 46.3 H Plt Count 197 MPV 9.8 PT 13.3 INR 1.0 APTT 30.3 Sodium 141 Potassium 4.5 Chloride 107 Carbon Dioxide 26.0 Anion Gap 8 BUN 30 H Creatinine 1.55 H Estim Creat Clear Calc 38.67 Est GFR (MDRD) Af Amer 56 L Est GFR (MDRD) Non-Af 47 L BUN/Creatinine Ratio 19.4 Glucose 90 Calcium 8.8 Magnesium Total Bilirubin 0.30 Direct Bilirubin 0.07 AST 16 ALT 25 Alkaline Phosphatase 67 Troponin I Total Protein 7.4 Albumin 3.2 Globulin 4.2 Triglycerides Cholesterol LDL Cholesterol VLDL Cholesterol HDL Cholesterol TSH 2.04 05/21/18 05:30 WBC RBC Hgb Hct MCV MCH MCHC RDW RDW Differential Plt Count MPV PT INR APTT Sodium Potassium Chloride Carbon Dioxide Anion Gap BUN Creatinine Estim Creat Clear Calc Est GFR (MDRD) Af Amer Est GFR (MDRD) Non-Af BUN/Creatinine Ratio Glucose Calcium Magnesium Total Bilirubin Direct Bilirubin AST ALT Alkaline Phosphatase Troponin I Total Protein Albumin Globulin Triglycerides 79 Cholesterol 136 LDL Cholesterol 68 VLDL Cholesterol 16 HDL Cholesterol 52 TSH Discharge Activity: Return to Normal Activity May resume sexual activity in: No Restrictions Call your doctor if you observe: Fever of 101 or Higher, Inability to urinate, Shortness of breath, Dizziness, Fainting spells, Swelling in the ankles, Chest pain, Calf discomfort, - - cold left leg or numbness or pain in the left leg when it is elevated Home Medications: Medications to take at Discharge Aspirin [Adult Low Dose Aspirin EC] 81 mg PO DAILY 12/22/14 Levothyroxine [Synthroid] 75 mcg PO DAILY 12/22/14 Simvastatin [Zocor] 10 mg PO QHS 12/22/14 predniSONE tablet 2.5 mg PO DAILY 12/22/14 Lisinopril [Zestril] 20 mg PO BID 01/24/15 Tamsulosin HCl [Flomax] 0.4 mg PO DAILY 01/24/15 Primary Care Physician: Eric Astudillo MD [Primary Care Provider] - Please follow up with your Primary Care Physician in: 1 week Please Follow Up With: Mary Chaney DO When: in the next month or so Please Follow Up With: Didier Potter MD When: as previously arranged Patient Instructions: Tips for Quitting Smoking (Cardiovascular), Why Do You Smoke?, Planning to Quit Smoking, Getting Support for Quitting Smoking, Discharge Instructions for Peripheral Vascular Disease Disposition: Home Minutes spent on discharge:: 30 Patient Condition:: Good Medical Necessity - Tobacco Use Smoking Status: Current every day smoker Tobacco Use: Cigarettes Meaningful Use Info Meaningful Use Diagnoses (Choose all that apply): None applicable Code Visit OBSV E&M: 00863 Observation care discharge
--- NOTE | 2018-05-21 16:26 | STRESSREP ---
Stress Test Report Pharmacologic myocardial perfusion stress test. 77-year-old man with a history of chest pain. Stress protocol: Resting EKG demonstrates normal sinus rhythm with a rate of 75 bpm normal intervals are noted resting blood pressure 120/60 6 cm of mercury. 0.4 mg of regadenoson was infused per usual protocol followed by rapid intravenous saline flush injection continuous EKG monitoring was performed. The maximum heart rate attained was 107 bpm which was 73% maximum predicted heart rate the maximum workload was 1 metabolic equivalent. At rest there were no ST or T wave changes noted suggest abnormal flow reserve at peak infusion no ST or T wave changes were noted suggest abnormal flow reserve. Myocardial perfusion protocol. 12.0 mCi of technetium 99m sestamibi was injected at rest. 0.4 mg of regadenoson was infused per usual protocol peak infusion 35.9 mCi of technetium 99m sestamibi was injected stress images were obtained stress and rest images were reconstructed and compared in the short axis vertical long horizontal long axis. Gated images were also obtained per Perfusion SPECT analysis: Review of the stress images demonstrate normal uptake of tracer noted in all areas of the myocardium. The resting images similarly demonstrate normal uptake of tracer noted in all areas of the myocardium. No areas of reversibility are noted suggest ischemia. Gated SPECT analysis: The gated ejection fraction is 74%. Conclusion: Normal pharmacologic myocardial perfusion stress test. Preserved ejection fraction.
== END 2018-05-21 13:57 | disposition home or self-care (01) ==
LOC: ED 10:08 → PCU 12:14
PROVIDERS: Admitting Provider Internal Medicine; Emergency Provider Emergency Medicine; Family Provider Family Medicine; PCP Family Medicine; Visit Provider Internal Medicine
DX: R07.89 Other chest pain (principal); E78.5 Hyperlipidemia, unspecified; I73.9 Peripheral vascular disease, unspecified; Z79.899 Other long term (current) drug therapy; Z79.82 Long term (current) use of aspirin; K21.9 Gastro-esophageal reflux disease without esophagitis; Z85.51 Personal history of malignant neoplasm of bladder; I12.9 Hypertensive chronic kidney disease with stage 1 through stage 4 chronic kidney disease, or unspecified chronic kidney disease; N18.3 Chronic kidney disease, stage 3 (moderate); E03.9 Hypothyroidism, unspecified; F17.210 Nicotine dependence, cigarettes, uncomplicated
CPT/HCPCS: 36415; 71046; 71275; 78452; 80048; 80061; 80076; 83735; 84443; 84484; 85025; 85027; 85379; 85610; 85730; 93005; 93017; 93306; 99218; 99285; 99406; A9500; J7030; Q9957; Q9967; A4216; G0378; J2785

== ENCOUNTER → 2018-06-03 08:24 | Outpatient (CLI) | payer MEDICARE, OTHER, SELFPAY ==
[2018-05-20 13:49] VITALS: BMI 20.4
--- NOTE | 2018-06-02 | PROSBIL_PTH ---
PATIENT: YUMIKO ROD LOC: [facility] U#:[id number] AGE/SX: 84/M ROOM: RE06/03/[address]: Dr. Didier Potter MD : 1940 BED: DIS: SPEC #: [id number] RECD: 06/03/18 09:40 STATUS: MARGO BRIGITTE #: [id number] LUIS FELIPE: 06/02/18 00:[address]: Didier Potter DEPT: SURGICAL PATHOLOGY RECD BY: Theodore Barros ENTERED: 06/03/18 09:40 SP TYPE: PROST BX JONATHAN DR: Dr. Trevon Astudillo MD Tissues: A - PROSTATE RIGHT B - PROSTATE RIGHT C - PROSTATE RIGHT D - PROSTATE LEFT E - PROSTATE LEFT F - PROSTATE LEFT Procedures: PROSTATE BX HEADER OPERATION: Prostate biopsy PRE-OP DIAGNOSIS: Elevated PSA TISSUE SUBMITTED: A - Right apex, B - Right mid, C - Right base, D - Left apex, E - Left mid, F - Left base MICROSCOPIC DIAGNOSIS A. Right prostate, apex, needle core biopsy: Benign prostate tissue. B. Right prostate, mid, needle core biopsy: Prostatic adenocarcinoma. Jacey Score: 6 (3+3) Number of cores involved: 1 out of 2 Proportion of tissue involved: 10% Perineural invasion: Not identified. Greatest tumor length: 0.26 cm C. Right prostate, base, needle core biopsy: Granulomatous prostatitis with mild chronic inflammation.. D. Left prostate, apex, needle core biopsy: Benign prostate tissue with moderate chronic inflammation. E. Left prostate, mid, needle core biopsy: Granulomatous prostatitis with marked chronic inflammation. F. Left prostate, base, needle core biopsy: Granulomatous prostatitis with marked chronic inflammation and microabscess formation. CE:sharita 06/04/18 COMMENT B. Case has been reviewed in consultation with Dr. Meraz who concurs with the above diagnosis. IDC:[id number] MICROSCOPIC DESCRIPTION Slides are reviewed. GROSS DESCRIPTION A - Received is one container designated prostate, right apex. The specimen consists of one elongated fragment of light burns-white soft tissue measuring 1.1 cm in length and 0.1 cm in diameter. The specimen is totally submitted in one cassette. B - Received is one container designated prostate, right mid. The specimen consists of two elongated fragments of light burns-white soft tissue measuring 1.2 to 1.4 cm in length and 0.1 cm in diameter. The specimen is totally submitted in one cassette. C - Received is one container designated prostate, right base. The specimen consists of one elongated fragment of light burns-white soft tissue measuring 1.2 cm in length and 0.1 cm in diameter. The specimen is totally submitted in one cassette. D - Received is one container designated prostate, left apex. The specimen consists of two elongated fragments of light burns-white soft tissue measuring 0.7 to 0.9 cm in length and 0.1 cm in diameter. The specimen is totally submitted in one cassette. E - Received is one container designated prostate, left mid. The specimen consists of two elongated fragments of light burns-white soft tissue measuring 1.1 to 1.2 cm in length and 0.1 cm in diameter. The specimen is totally submitted in one cassette. F - Received is one container designated prostate, left base. The specimen consists of two elongated fragments of light burns-white soft tissue each measuring 0.9 cm in length and 0.1 cm in diameter. The specimen is totally submitted in one cassette. / CE:sharita 06/03/18 TC:0 CPT: G0146 ADDENDUM ADDENDUM ADDENDUM ADDENDUM ADDENDUM ADDENDUM ADDENDUM ADDENDUM 06/29/2018 09:59 ADDENDUM 06/29/2018 09:59 ADDENDUM 06/29/2018 09:59 ADDENDUM 06/29/2018 09:59 ADDENDUM 06/29/2018 09:59 An order for Oncotype testing was received from Dr. Potter. This necessitated case review, block and slide selection by pathologist at [facility]. Genomic Prostate Score = 35 Results of the complete Oncotype testing ([employer] report) are viewable in EMR under: Reports - Pathology - Lab Pathology Report, Scanned.
== END ==
PROVIDERS: Family Provider Family Medicine; PCP Family Medicine; Referring Provider Urology; Visit Provider Urology
DX: R97.20 Elevated prostate specific antigen [PSA] (principal)
CPT/HCPCS: 88305; G0416

== ENCOUNTER → 2018-07-30 | Outpatient (CLI) | payer MEDICARE, OTHER, SELFPAY ==
[2018-05-20 13:49] VITALS: BMI 20.4
--- NOTE | 2018-07-30 13:49 | ART_ITS ---
Reason For Study: atherosclerosis with claudication Left Segmental Pressures Left brachial= 115mmHg. Left posterior tibial artery = 86mmHg. Left dorsalis pedis artery = 68mmHg. The left posterior tibial artery waveforms are biphasic. The left dorsalis pedis waveforms are monophasic. Right Segmental Pressures Right brachial= 106mmHg. Right posterior tibial artery = 116mmHg. Right dorsalis pedis artery = 102mmHg. The right dorsalis pedis waveforms are triphasic. The right posterior tibial artery waveforms are triphasic. Indices The right ankle brachial index by the dorsalis pedis is .89. The right ankle brachial index by the posterior tibial artery is 1.01. The right ankle brachial index by the posterior tibial artery post exercise is .86. The left ankle brachial index by the dorsalis pedis is .59. The left ankle brachial index by the posterior tibial artery is .75. The left posterior tibial artery index post exercise is .64. Interpretation Summary Triphasic Doppler waveforms are noted at ankle level on the right. Biphasic and monophasic Doppler waveforms are noted at ankle level on the left. Pulse-volume recording waveforms appear satisfactory at ankle level bilaterally. The resting right ankle-brachial index is normal. The resting left ankle-brachial index is moderately diminished. The patient was ambulated at a moderate pace for 5 minutes without complaints. Ankle pressures were noted to diminish bilaterally one minute following cessation of exercise, followed by return to baseline several minutes later. 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 Ordering Physician: Trevon Astudillo Performed By: KIRA PEREA Telma
== END | disposition home or self-care (01) ==
LOC: CVS 13:45
PROVIDERS: Family Provider Family Medicine; PCP Family Medicine; Referring Provider Family Medicine; Visit Provider Family Medicine
DX: I70.213 Atherosclerosis of native arteries of extremities with intermittent claudication, bilateral legs (principal)
CPT/HCPCS: 93922

== ENCOUNTER → 2018-08-17 | Outpatient (CLI) | payer MEDICARE, OTHER, SELFPAY ==
[2018-05-20 13:49] VITALS: BMI 20.4
--- NOTE | 2018-08-17 11:50 | US_ITS ---
STUDY: RENAL ULTRASOUND - COMPLETE REASON FOR EXAM: Male, 77 years old. Chronic kidney disease TECHNIQUE: Ultrasound evaluation of the kidneys was performed with real-time and static gottlieb-scale imaging. COMPARISON: CT dated 10/05/2015. FINDINGS: RIGHT KIDNEY: Normal location of the right kidney, which is normal in size. The right kidney measures 9.9 cm. There is a normal cortex of the right kidney. There is no right renal mass or cyst. There are no right renal calculi. There is no right hydronephrosis. DISTAL RIGHT URETER: There is non-visualization of the distal right ureter. There is no demonstrated right ureterovesical junction calculus. There is a visualized right ureteral jet. LEFT KIDNEY: Normal location of the left kidney, which is normal in size. The left kidney measures 9.9 cm. There is a normal cortex of the left kidney. There is no left renal mass or cyst. There are no left renal calculi. There is no left hydronephrosis. DISTAL LEFT URETER: There is non-visualization of the distal left ureter. There is no demonstrated left ureterovesical junction calculus. There is a visualized left ureteral jet. PROSTATE: Enlarged, measuring 6.7 x 4.4 x 3.9 cm BLADDER: Thickened wall posteriorly. US/Kidney and Bladder IMPRESSION: Normal kidneys. No hydronephrosis. Enlarged prostate. Thickened posterior wall of the urinary bladder which may be due to under distention. However, cystitis cannot be excluded. Electronically Signed: Will Bender, at 15:23 EDT Tel , Service support ,
== END | disposition home or self-care (01) ==
LOC: US 11:46
PROVIDERS: Family Provider Family Medicine; PCP Family Medicine; Referring Provider Internal Medicine Nephrology; Visit Provider Internal Medicine Nephrology
DX: N18.3 Chronic kidney disease, stage 3 (moderate) (principal)
CPT/HCPCS: 76770

== ENCOUNTER → 2018-09-14 | Outpatient (CLI) | payer MEDICARE, OTHER, SELFPAY ==
[2018-05-20 13:49] VITALS: BMI 20.4
[2018-09-14 12:37] LABS: PSA,Total- Diagnostic 7.97 ng/mL (0.0-4.0)
== END | disposition home or self-care (01) ==
LOC: MTLAB 10:41
PROVIDERS: Family Provider Family Medicine; PCP Family Medicine; Referring Provider Urology; Visit Provider Urology
DX: C61 Malignant neoplasm of prostate (principal)
CPT/HCPCS: 36415; 84153

== ENCOUNTER → 2018-09-29 | Outpatient (CLI) | payer MEDICARE, OTHER, SELFPAY ==
[2018-05-20 13:49] VITALS: BMI 20.4
[2018-09-29 09:35] LABS: CREATININE FINGERSTICK 1.8 mg/dL (0.70-1.30)
--- NOTE | 2018-09-29 10:00 | MRI_ITS ---
STUDY: MR PELVIS WITH T WITHOUT CONTRAST REASON FOR EXAM: Male, 77 years old. New prostate cancer diagnosis. History of bladder cancer with tumor removal. History of femoral bypass surgery. TECHNIQUE: IV contrast of 10 15 mL. Multisequence multiplanar MRI of the prostate was performed without and with IV contrast, utilizing multi parametric technique including high-resolution small FOV imaging of the prostate gland in the sagittal, coronal and axial planes, diffusion-weighted imaging, and non-dynamic postcontrast imaging. COMPARISON: CT abdomen and pelvis 10/05/2015 FINDINGS: Body wall soft tissues: No acute process. Osseous structures: No acute process. No evidence of any lytic or blastic lesion. Vasculature: No acute process. Lymphadenopathy: No enlarged inguinal or iliac chain lymph nodes are apparent. A few tiny pelvic sidewall lymph nodes are present bilaterally. Bowel: Evaluated portions of small and large bowel exhibit no acute process. There is diffuse sigmoid diverticulosis without evidence of acute diverticulitis. Next line urinary bladder: Mild circumferential thickening of the wall with mild trabeculation likely reflecting detrusor muscle hypertrophy in the setting of prostatomegaly. Prostate: Diffusely heterogeneous and nodular features of the central prostate in a pattern most consistent with benign prostatic hypertrophy. Prostatomegaly, craniocaudal prostate 4.7 cm, transverse 6.1 cm, anterior-posterior 3.8 cm. Left neurovascular bundles normal. Seminal vesicles normal. Prostatic capsule preserved. -Left anterior peripheral zone, apical gland, lenticular region of intermediately T2 hypointensity associated with mildly restricted diffusion, measuring approximately 6.7 mm transverse, 2.1 cm anterior-posterior. PIRADS Category 2. -Apical gland, right anterior peripheral zone, partially extending into the anterior fibromuscular stroma, lenticular region of T2 hypointensity with restricted diffusion. This region measures approximately 1.4 cm anterior-posterior, 1.6 cm transverse, and 1.5 cm craniocaudal. PIRADS Category 5. -Right basilar to mid gland posterior peripheral zone, partially encroaching into the posterior medial peripheral zone prominent region of distinctive T2 hypointensity, measuring up to 2.6 cm anterior-posterior, 2.8 cm transverse, and 2.7 cm craniocaudal, with intense diffusion restriction. The margin of this lesion abuts the right-sided neurovascular bundle, without apparent invasion, without extraprostatic extension. The capsule is preserved. The lesion directly abuts the capsule. PIRADS Category 5. -Basilar gland, left posterior peripheral zone, T2 hypointense focus measuring 1.3 cm craniocaudal, 1.4 cm anterior-posterior, 1.1 cm transverse. Intermediately restricted diffusion. Discrete margins. PIRADS Category 4. MRI/Pelvis W/WO Contrast IMPRESSION: Multiple prostate lesions, as described individually above. Largest lesion right prostate basilar to mid posterior peripheral zone, 2nd largest lesion right prostate mid to apical anterior peripheral zone. PIRADS Category 5. No evidence of invasion into the neurovascular bundles, seminal vesicles, or through the prostatic capsule. T2. No suspicious enlarged lymph nodes of the pelvis. No apparent osseous metastatic disease in the pelvis. Electronically Signed: Armani Schmitt MD at 16:01 EDT Tel , Service support ,
[2018-09-29 11:04] VITALS: BP 100/55; PULSE 70; RESP 18; TEMP 36.5; O2SAT 100; BMI 20.6
[2018-09-29] MEDS: 0.9% Normal Saline 1,000 ML 999 ML IV (11:13)
[2018-09-29 13:06] VITALS: BP 142/67; PULSE 91; RESP 18; O2SAT 97
[2018-09-29 13:17] VITALS: BP 123/74; PULSE 96; RESP 18; O2SAT 96
== END | disposition home or self-care (01) ==
LOC: MRI 09:13
PROVIDERS: Family Provider Family Medicine; PCP Family Medicine; Referring Provider Urology; Visit Provider Urology
DX: C61 Malignant neoplasm of prostate (principal)
CPT/HCPCS: 96360; 72197; A9575; J7030

== ENCOUNTER → 2018-10-22 17:13 | Outpatient (CLI) | payer MEDICARE, OTHER, SELFPAY ==
[2018-09-29 11:04] VITALS: BMI 20.6
--- NOTE | 2018-10-22 | PROSBIL_PTH ---
PATIENT: YUMIKO ROD LOC: [facility] U#:[id number] AGE/SX: 84/M ROOM: RE10/22/[address]: Dr. Trevon Astudillo MD : 1940 BED: DIS: SPEC #: [id number] RECD: 10/23/18 08:00 STATUS: MARGO BRIGITTE #: [id number] LUIS FELIPE: 10/22/18 00:[address]: Didier Pottre DEPT: SURGICAL PATHOLOGY RECD BY: Theodore Barros Tissues: A - PROSTATE RIGHT B - PROSTATE RIGHT C - PROSTATE RIGHT D - PROSTATE LEFT E - PROSTATE LEFT F - PROSTATE LEFT Procedures: PROSTATE BX Special Stain Group I AFB Stain (control) GMS Stain (control) Comments: @ Ordering doctor for SSI edited from to @ by ROSS at 10/26/18 1134 @ Ordering doctor for AFB edited from to @ by ROSS at 10/26/18 1134 @ Ordering doctor for GMS edited from to @ by ROSS at 10/26/18 1134 @ Ordering doctor for PROSB edited from to @ by ROSS at 10/26/18 1134 @ Submitting doctor edited from to @ by ROSS at 10/26/18 1134 HEADER OPERATION: Prostate biopsy PRE-OP DIAGNOSIS: R97.20 TISSUE SUBMITTED: A - Right apex, B - Right mid, C - Right base, D - Left apex, E - Left mid, F - Left base MICROSCOPIC DIAGNOSIS A. Right prostate, apex, core biopsy: Necrotizing granulomatous inflammation. See comment. B. Right prostate, mid, core biopsy: Adenocarcinoma: Jacey grade: 6 (3+3) Cores involved: 1 of 1 cores Tissue involved: 1% (discontinuous) Greatest tumor length: 0.5 mm C. Right prostate, base, core biopsy: Adenocarcinoma: Jacey grade: 7 (3+4) Cores involved: 1 of 2 cores Tissue involved: 45% Greatest tumor length: 4 mm See comment. D. Left prostate, apex, core biopsy: Chronic prostatitis. E. Left prostate, mid, core biopsy: Mild chronic prostatitis. Focal granulomatous prostatitis. F. Left prostate, base, core biopsy: Chronic granulomatous prostatitis. AM:sharita 10/26/18 COMMENT A. AFB and GMS stains with matched controls were used in the evaluation of this case. B & C. Immunohistochemistry ([id number]) supports the above diagnosis. Case has been reviewed in consultation with Dr. Meraz who concurs with the above diagnosis. IDC:SJ MICROSCOPIC DESCRIPTION Slides are reviewed. B. Sections show small granulomas with prominent foreign body type giant cells. GROSS DESCRIPTION A - Received is one container designated prostate, right apex. The specimen consists of one elongated fragment of light burns-white soft tissue measuring 2 cm in length and 0.1 cm in diameter. The specimen is totally submitted in one cassette. B - Received is one container designated prostate, right mid. The specimen consists of one elongated fragment of light burns-white soft tissue measuring 1.5 cm in length and 0.1 cm in diameter. The specimen is totally submitted in one cassette. C - Received is one container designated prostate, right base. The specimen consists of two elongated fragments of light burns-white soft tissue measuring 0.3 and 1.2 cm in length and 0.1 cm in diameter. The specimen is totally submitted in one cassette. D - Received is one container designated prostate, left apex. The specimen consists of one elongated fragment of light burns-white soft tissue measuring 1.2 cm in length and 0.1 cm in diameter. The specimen is totally submitted in one cassette. E - Received is one container designated prostate, left mid. The specimen consists of one elongated fragment of light burns-white soft tissue measuring 1 cm in length and 0.1 cm in diameter. The specimen is totally submitted in one cassette. F - Received is one container designated prostate, left base. The specimen consists of two elongated fragments of light burns-white soft tissue measuring 0.5 and 0.8 cm in length and 0.1 cm in diameter. The specimen is totally submitted in one cassette. / SJ:sharita 10/23/18 TC:0 [facility]: [id number], [id number] x2
--- NOTE | 2018-10-22 | IMM_PTH ---
PATIENT: YUMIKO ROD LOC: [facility] U#:[id number] AGE/SX: 84/M ROOM: RE10/22/[address]: Dr. Trevon Astudillo MD : 1940 BED: DIS: SPEC #: [id number] RECD: 10/26/18 11:30 STATUS: MARGO BRIGITTE #: [id number] LUIS FELIPE: 10/22/18 00:[address]: Didier Potter DEPT: IMMUNOHISTOCHEMISTRY RECD BY: Mary Grace Olivares Tissues: B - PROSTATE RIGHT C - PROSTATE RIGHT Procedures: 34BE12 (add) P40 (add) 34BE12 (initial) PHYSICIAN & [place] [id number] SPECIMEN INFORMATION: Tissue Source: B - Right prostate, mid, core biopsy, C - Right prostate, base, core biopsy Clinical Info: R97.20 Specimen Number: [id number] B & C CPT code: 96316, 29436 x3 METHODOLOGY: Deparaffinized sections of prefer/formalin-fixed tissue or PAP/DQ stained slides are incubated with monoclonal/polyclonal antibodies/oligonucleotide probes. Localization is made via biotin free immunoperoxidase method. Appropriate controls are performed and reacted as expected. Results on target cell population are indicated in the following table: RESULTS: ANTIBODY / CLONE RESULT Block B P40 (BC28) negative 34BE12 (34BE12) negative Block C P40 (BC28) negative 34BE12 (34BE12) negative These tests were developed and their performance characteristics determined by [facility]. They may not have been cleared or approved by the U.S. Food and Drug Administration. The FDA has determined that such clearance or approval is not necessary. INTERPRETATION: B. Right prostate, mid, core biopsy: Adenocarcinoma, Jacey 6 (3+3). C. Right prostate, base, core biopsy: Adenocarcinoma, Jacey 7 (3+4). AM:sharita 10/27/18
== END ==
PROVIDERS: Family Provider Family Medicine; PCP Family Medicine; Referring Provider Family Medicine; Visit Provider Family Medicine
DX: C61 Malignant neoplasm of prostate (principal)
CPT/HCPCS: 88305; 88312; 88341; 88342; G0416

== ENCOUNTER → 2018-11-09 | Outpatient (CLI) | payer MEDICARE, OTHER, SELFPAY ==
[2018-09-29 11:04] VITALS: BMI 20.6
[2018-11-09 17:52] LABS: Hematocrit 42.4 % (40-54); Hemoglobin 14.6 g/dL (13.0-16.5); Mean Corp Hgb Conc 34.4 g/dL (32-36); Mean Corpuscular Hgb 34.9 pg (27.0-32.0); Mean Corpuscular Volume 101.4 fL (80-94); Mean Platelet Vol. 9.9 fl (6.2-12.0); Platelet Count 221 K/mm3 (150-450); RBC Distribution Width CV 12.9 % (11.6-14.6); RBC Distribution Width SD 47.6 fl (35.1-43.9); Red Blood Count 4.18 M/mm3 (4.6-6.2); White Blood Count 8.2 K/mm3 (4.4-11.0)
[2018-11-09 18:01] LABS: Albumin, Serum 3.8 g/dL (3.2-5.0); BUN 29 mg/dL (7-18); BUN/Creat Ratio 18.2 RATIO (10-20); Calcium,Total 9.2 mg/dL (8.5-10.1); Chloride 108 mmol/L (98-107); Creatinine, Serum 1.59 mg/dL (0.70-1.30); EST Glomerular Filtration Rate 45 mL/min (>60); Est Glom Filt Rate - Afr Amer 55 mL/min (>60); Glucose 83 mg/dL (74-106); Phosphorus 3.7 mg/dL (2.5-4.9); Potassium 4.4 mmol/L (3.5-5.1); Sodium Level 143 mmol/L (136-145)
[2018-11-10 09:03] LABS: PTHIN 45.4 pg/mL (18.4-80.1)
== END | disposition home or self-care (01) ==
LOC: MFPLAB 15:09
PROVIDERS: Family Provider Family Medicine; PCP Family Medicine; Visit Provider Internal Medicine Nephrology
DX: N18.3 Chronic kidney disease, stage 3 (moderate) (principal)
CPT/HCPCS: 36415; 80069; 83970; 85027

== ENCOUNTER → 2018-11-12 | Outpatient (CLI) | payer MEDICARE, OTHER, SELFPAY ==
[2018-09-29 11:04] VITALS: BMI 20.6
--- NOTE | 2018-11-12 14:45 | CT_ITS ---
STUDY: CT ABDOMEN AND PELVIS WITH CONTRAST REASON FOR EXAM: Male, 78 years old. Prostate cancer. RADIATION DOSAGE (If Supplied By Facility): CTDIvol = ( 11.53 ) mGy, DLP = ( 468.80 ) mGycm TECHNIQUE: Transaxial images were obtained from the dome of the diaphragm to the symphysis pubis without oral contrast. 75ml IV Isovue 300 was administered. Sagittal and coronal images were reconstructed. Individualized dose optimization techniques were used for this CT. COMPARISON: 10/05/2015. FINDINGS: The visualized lung bases are unremarkable. The visualized portions of the heart are within normal limits. Normal liver. Stable small probable cysts in the left lobe. The gallbladder is contracted. There are multiple benign calcified granulomata of the spleen. Normal pancreas. Normal bilateral adrenal glands. Normal right kidney. Normal left kidney. Stable small bilateral renal cysts. Evaluation of the GI tract is limited by absence of oral contrast. Cannot exclude stomach wall thickening. No dilated loops of bowel or evidence for obstruction. Cannot exclude segmental thickening of the newman of the small or large bowel. Cannot exclude enteritis or colitis. Moderate diffuse fecal retention. Diverticulosis without definite diverticulitis. Appendix within normal limits. Calcified plaque in a tortuous aorta. Stable infrarenal aneurysm measuring 2.8 cm diameter.. Normal inferior vena cava. Normal retroperitoneum. Normal urinary bladder. There is enlargement of the prostate gland. Normal abdominal wall. There are diffuse degenerative changes of the visualized lumbar spine. A femoral-femoral arterial graft seen across the pubis. CT/Abdomen/Pelvis WITH Contrast IMPRESSION: No change and no acute abnormalities. Stable 2.8 cm aortic aneurysm. Electronically Signed: Dickson Mcintosh MD at 16:28 EDT , Service support ,
== END | disposition home or self-care (01) ==
LOC: CT 14:43
PROVIDERS: Family Provider Family Medicine; PCP Family Medicine; Referring Provider Urology; Visit Provider Urology
DX: C61 Malignant neoplasm of prostate (principal)
CPT/HCPCS: 74177; Q9967

== ENCOUNTER 2018-12-16 06:20 | Day surgery (SDC) | payer MEDICARE, OTHER, SELFPAY ==
[2018-09-29 11:04] VITALS: BMI 20.6
[2018-12-03 11:34] VITALS: BP 91/53; PULSE 65; RESP 16; TEMP 36.4; O2SAT 99; BMI 19.3
--- NOTE | 2018-12-03 11:45 | RAD_ITS ---
STUDY: X-RAY CHEST REASON FOR EXAM: Male, 78 years old. Preop surgery TECHNIQUE: PA and lateral views of the chest. COMPARISON: 05/20/2018 FINDINGS: There is hyperinflation of the lungs consistent with chronic obstructive lung disease (COPD). There is no demonstrated pleural abnormality. Normal size heart. Normal mediastinum and espinoza. Normal visualized pulmonary arteries. Normal visualized aortic arch and descending thoracic aorta. Normal visualized thoracic spine. Normal visualized ribs, clavicles, and shoulders. There is no demonstrated abnormality of the visualized soft tissue structures of the upper abdomen. RAD/Chest PA and Lateral IMPRESSION: Emphysema without pneumonia or atelectasis. Electronically Signed: Armani Gayle MD at 12:09 EDT Tel , Service support ,
[2018-12-03 12:27] LABS: AST(SGOT) 15 U/L (15-37); Alanine Aminotransfer ALT/SGPT 23 U/L (16-61); Albumin, Serum 3.9 g/dL (3.2-5.0); Alkaline Phosphatase 81 U/L (45-117); Anion Gap 4 (5-15); BUN 34 mg/dL (7-18); BUN/Creat Ratio 23.8 RATIO (10-20); Calcium,Total 9.2 mg/dL (8.5-10.1); Chloride 108 mmol/L (98-107); Creatinine, Serum 1.43 mg/dL (0.70-1.30); EST Glomerular Filtration Rate 51 mL/min (>60); Est Glom Filt Rate - Afr Amer 62 mL/min (>60); Estimated Creatinine Clearance 39.16 ml/min; Globulin 3.9 g/dL (2.2-4.2); Glucose 82 mg/dL (74-106); Potassium 4.5 mmol/L (3.5-5.1); Protein, Total 7.8 g/dL (6.4-8.2); Sodium Level 142 mmol/L (136-145); Thyroid Stim Hormone (TSH) 1.15 uIU/mL (0.358-3.74)
[2018-12-16] VITALS (12 sets, daily range): BP systolic 106–128; BP diastolic 54–73; PULSE 71–81; RESP 16–18; TEMP 36.2–37.4; O2SAT 92–100; BMI 19.3; BMI 19.4
--- NOTE | 2018-12-16 | PROST_PTH ---
PATIENT: YUMIKO ROD LOC: [facility] U#:[id number] AGE/SX: 78/M ROOM: RE12/16/[address]: Dr. Didier Potter MD : 1940 BED: DIS: 12/17/2018 SPEC #: [id number] RECD: 12/16/18 12:19 STATUS: MARGO REQ #: [id number] LUIS FELIPE: 12/16/18 00:[address]: Didier Potter DEPT: SURGICAL PATHOLOGY RECD BY: Theodore Barros ENTERED: 12/16/18 12:19 SP TYPE: PROSTATE OTHR DR: Dr. Trevon Astudillo MD Tissues: A - Prostate, NOS B - Adipose tissue Procedures: Special Stain Group I Surgery Specimen Level IV Surgery Specimen Level AFB Stain (control) GMS Stain (control) HEADER OPERATION: Laparoscopic robotic radical prostatectomy PRE-OP DIAGNOSIS: Prostate cancer; elevated PSA TISSUE SUBMITTED: A - Prostate, B - Fat over prostate MICROSCOPIC DIAGNOSIS A. Prostate, radical prostatectomy: Prostatic adenocarcinoma. Extensive necrotizing granulomatous inflammation. See comment. Special stains for acid fast bacilli and fungi are negative for organisms; matched controls are appropriate. See cancer summary below. B. Fat over prostate: Pieces of mature adipose tissue, negative for carcinoma. SJ:sharita 12/18/18 PROSTATE CANCER (RADICAL) SUMMARY: Procedure - radical prostatectomy Prostate size - 5.5 cm transversely, 3.5 cm anterior-posteriorly, 4 cm craniocaudally Prostate weight - 59 gm Lymph node sampling - no lymph node present Histologic type - adenocarcinoma (acinar, not otherwise specified) Histologic grade (Motley Pattern): Primary pattern - 3 Secondary pattern - 3 Tertiary pattern - not applicable Total Motley score - 6 Tumor Quantitation: Proportion (%) of prostate involved by tumor - <5% Extraprostatic extension - present, focal, right lobe, postero-lateral surface Seminal vesicle invasion - not identified Margins - margins uninvolved by invasive carcinoma. Treatment effect on carcinoma - no known presurgical therapy for prostate carcinoma. Lymph-Vascular invasion - not identified Perineural invasion - present, frequent Regional lymph nodes - no lymph nodes submitted or found Distant metastasis - not applicable Additional pathologic findings - benign prostatic hyperplasia - Extensive necrotizing granulomatous inflammation. - Diffuse chronic inflammation. PATHOLOGIC STAGE: pT3a pNx Mx The above summary is in compliance with [employer] (CAP) Cancer Protocols Checklist and [place] Joint Committee on Cancer (AJCC), Staging Manual, 8th Ed. COMMENT The tumor involves both right and left prostate lobes. The tumor in the right lobe measures 1.5 x 0.5 cm (measured microscopically) and present in slides #6, 13 and 14 and the tumor in the left lobe is present in slide #15 and measures 0.7 x 0.4 cm (measured microscopically). Necrotizing granulomatous inflammation may represents therapy related changes to urothelial carcinoma. Please make reference to previous specimen [id number], right prostate, mid and base, core biopsies with diagnosis of adenocarcinoma and right prostate apex, core biopsy with diagnosis of necrotizing granulomatous inflammation. Please also make reference to previous specimen [id number], bladder tumor, TUR with diagnosis of urothelial carcinoma. Case has been reviewed in consultation with Dr. nOeill who concurs with the above diagnosis. IDC:AM MICROSCOPIC DESCRIPTION Slides are reviewed. GROSS DESCRIPTION A - Received in fixative is one container labeled with the patient's name and designated prostate. The specimen consists of a prostate gland measuring 5.5 cm transversely, 3.5 cm anterior-posteriorly and 4 cm craniocaudally. The specimen comes attached with seminal vesicles and vas deferens. The specimen weighs 59 gm. The external surface is somewhat lobulated. The specimen is differentially inked as follows: anterior - red, right half - blue, left half - green and entire posterior surface - black. The prostate is cut from apex to base with approximately 3-4 mm intervals. Cut surfaces reveal a lobulated surface. No distinct mass lesion is identified. Chalky-yellow discoloration is identified in sections from apex to mid portion of the gland. Manager Parking sections are submitted as follows: 1??distal urethral shaved margin, 2 - proximal shaved margin (bladder shave), 3 - seminal vesicles, 4 - most basal section of prostate, 5-8 - apex, 9-14 - mid portion of gland, 15-20 - basal portion of gland. / AM:sharita 12/17/18 B - Received in fixative is one container labeled with the patient's name and designated fat over prostate. The specimen consists of two pieces of yellow adipose tissue that in aggregate measure 2.7 x 2.5 x 0.3 cm. The entire specimen is submitted in one cassette. / KAVYA:sharita 12/16/18 TC:0 CPT: 58704, 02523, 21551 x2
[2018-12-16] MEDS: Lactated Ringers 1,000 ML 100 ML IV ×2 (07:35)
[2018-12-16] MEDS: Cefazolin 2 GM in 0.9% Normal Saline 100 ML IV (08:00)
--- NOTE | 2018-12-16 08:03 | DCINST_ITS ---
Discharge Diet: Light diet - advance as tolerated Discharge Activity: May not drive while taking narcotic pain medications., May Shower Return to work on:: 01/27/19 May shower in (days): 1 Lifting Restrictions: No lifting x 6 weeks Call your doctor if your incision/area has: Continuous Slow Oozing, Sudden Increased Bleeding, Increased Pain/ Swelling, Increased Redness, Foul Smelling Discharge, Swelling at the incision site Call your doctor if you observe: Fever of 101 or Higher Suture Line Care: Avoid Pulling/Pushing, Avoid Pinching/Bending Catheter: Melgar to leg bag, Melgar to large bag Drain: [place] Instructions: Radical Prostatectomy Allergies/Adverse Reactions: Allergies No Known Allergies Allergy (Verified 12/03/18 11:24) Medications to take at Discharge Aspirin [Adult Low Dose Aspirin EC] 81 mg PO DAILY 12/22/14 Levothyroxine [Synthroid] 75 mcg PO DAILY 12/22/14 Simvastatin [Zocor] 10 mg PO QHS 12/22/14 predniSONE tablet 2.5 mg PO DAILY 12/22/14 Lisinopril [Zestril] 20 mg PO BID 01/24/15 Tamsulosin HCl [Flomax] 0.4 mg PO DAILY 01/24/15 Calcium (Elemental) [Os-Romulo 500] 500 mg PO DAILY@0800 12/03/18 Primary Care Physician: Eric Astudillo MD [Primary Care Provider] - Test Results: Test results from this visit will be discussed in further detail at your follow- up appointment, if applicable. Please Follow Up With: Didier Potter MD When: please call to make an appointment. Proposed Discharge Date: 12/17/18
[2018-12-16] MEDS: Bupivacaine Mpf 0.5% 30 ML VIAL (09:00)
--- NOTE | 2018-12-16 10:57 | OP.PCM_ITS ---
Report of Operation Date of Procedure: 12/16/18 Pre-Operative Diagnosis: Prostate cancer Post-Operative Diagnosis: Same Surgery/Procedure Performed:: Laparoscopic robotic assisted radical prostatectomy, suture suspension of the urethra Description of Surgical Findings:: 78-year-old male taken back to the operating room has a history of prostate cancer and is elected to undergo radical prostatectomy for curative and intent. We talked about the risk of the surgery how the surgery is done he understands there is recovery with the surgery with recovery control control of his bladder and also the potential lose erections of the surgery. 78-year-old male taken back to the operating room at the [facility] of anesthesia he was placed supine on the table we then placed in dorsolithotomy position, penis and testicles and abdomen were shaved prepped and draped in usual sterile fashion first thing I did is I palpate his femorofemoral bypass graft and could palpate a nice pulse through this. I then went up to the umbilicus and infiltrated the umbilicus with lidocaine and then using a knife to make a small incision in the umbilicus and then used a Veress needle to place the Veress needle inside the peritoneal cavity insufflated the peritoneal cavity with CO2 gas. Placed my camera trocar right arm trocar left arm trocar second lateral trocar and air seal port and suction trocar. After all the trochars were placed then we docked the robot and proceeded with the dissection I first released the colon from the lateral pelvic wall and allowed to be tracked from the pelvis I then incised the pelvis peritoneal over the vas deferens and several vesicles, vas deferens and several schools were then dissected out I then went underneath the prostate below the nonbilious fascia above the rectum down to the apex of the prostate posteriorly. We then pulled out of the pelvis and we then dropped the bladder incised the wings of the bladder and pulled the bladder on traction and then created the space of Retzius placed the bladder on traction and then dissected all the fat off the prostate incised in the pelvic fashion the right and left side carefully dissected off the endopelvic fascia and all the way to the dorsal vein complex we then placed a stitch in the dorsal vein complex then pulled back to the edges I released the fascia on the prostate on the right left side this allowed for nerve sparing dissection about the right left side. We then dissected between the bladder and the prostate placed in the bladder on traction dissected down to the catheter and then pulled the catheter up and then dissected below the catheter down to the seminal vesicles and vas deferens were already dissected out. I then went to the right pedicle we took the right pedicle and then with identified the neurovascular bundle and then arie ed the Norvasc bundle off the prostate in the right side all the way to the apex we then went to the left side and took the pedicle identified the left neurovascular bundle and freed all the way up to the apex and the left side we then came across the dorsal vein complex with scissors I placed an extra stitch and dorsal vein complex to secure it to make sure there is no bleeding from the dorsal vein we then transected to the urethra the prostate was then placed in an Endo Catch bag we then did a suture suspension of the ureter passing a suture from above down below the prostate to the bladder neck after suspending the urethra then we completed the anastomosis over catheter from the 6:00 to 12:00 with a running 3-0 Vicryl lock stitch. Very minimal bleeding during the procedure at the end the procedure we extracted the prostate through the umbilical site we then Doppler the femorofemoral bypass which is still dopplerable and he can still feel posterior and then patient's anesthetic was reversed taken back to PACU in stable condition I went also spoke to the family all the sutures and needles and sponges were accounted for and we closed all the skin incisions with subcuticular stitches he is taken back to the PACU in good condition. Type of Anesthesia:: General Drains: martinez Estimated Blood Loss (mL): 50cc - Admit VTE Documentation VTE Present on Admission: No VTE Mechan Device Prophylaxis: SCD's
[2018-12-16] MEDS: Ketorolac 15 MG/ML Vial IV ×3 (11:55→20:31)
[2018-12-16] MEDS: 0.9% Normal Saline 1,000 ML 75 ML IV (13:13)
[2018-12-16] MEDS: Pantoprazole Sodium 40 MG Tablet PO (13:15)
[2018-12-16] MEDS: 0.9% NaCl Peripheral Flush Adult/Peds IV ×2 (14:53→20:32)
[2018-12-16] MEDS: Ciprofloxacin 400 MG/200 ML BAG 200 MG IV ×2 (14:53→22:21)
[2018-12-16] MEDS: Atorvastatin Calcium 10 MG Tablet 5 MG PO (22:25)
[2018-12-16] MEDS: Docusate Sodium 100 MG Capsule PO (22:25)
[2018-12-17] MEDS: 0.9% NaCl Peripheral Flush Adult/Peds IV ×2 (02:19→08:04)
[2018-12-17] MEDS: Ketorolac 15 MG/ML Vial IV ×2 (02:19→08:04)
[2018-12-17] MEDS: 0.9% Normal Saline 1,000 ML 75 ML IV (03:41)
[2018-12-17 05:00] VITALS: BP 109/58; PULSE 68; RESP 16; TEMP 37.1; O2SAT 94
[2018-12-17] MEDS: Levothyroxine 75 MCG Tablet PO (05:00)
[2018-12-17 05:30] LABS: Hematocrit 34.3 % (40-54); Hemoglobin 11.5 g/dL (13.0-16.5); Mean Corp Hgb Conc 33.5 g/dL (32-36); Mean Corpuscular Volume 101.5 fL (80-94); Mean Platelet Vol. 9.8 fl (6.2-12.0); Platelet Count 154 K/mm3 (150-450); RBC Distribution Width CV 12.8 % (11.6-14.6); RBC Distribution Width SD 47.6 fl (35.1-43.9); Red Blood Count 3.38 M/mm3 (4.6-6.2); White Blood Count 11.7 K/mm3 (4.4-11.0)
[2018-12-17 05:52] LABS: Anion Gap 8 (5-15); BUN 29 mg/dL (7-18); BUN/Creat Ratio 18.6 RATIO (10-20); Calcium,Total 7.7 mg/dL (8.5-10.1); Chloride 110 mmol/L (98-107); Creatinine, Serum 1.56 mg/dL (0.70-1.30); EST Glomerular Filtration Rate 46 mL/min (>60); Est Glom Filt Rate - Afr Amer 56 mL/min (>60); Glucose 105 mg/dL (74-106); Sodium Level 141 mmol/L (136-145)
--- NOTE | 2018-12-17 07:20 | PCM.PROGNOTE ---
Subjective: 78-year-old male status post radical prostatectomy for prostate cancer surgery went well, urine is clear today he is doing well. - Physical Exam General: Alert, Oriented x3, Cooperative HEENT: Atraumatic, PERRLA, EOMI, Normocephalic Neck: Supple, No JVD, Negative Carotid Bruits Lungs: Clear to auscultation, Normal air movement Cardiovascular: Regular rate, No murmurs Abdomen: Bowel Sounds Present, Soft, Non Tender Extremities: No edema, Capillary Refill Less than 3 Seconds Skin: No rashes, No breakdown Musculoskeletal: No Tenderness to Palpation of Joints or Extremities Neurological: Cranial nerves II-XII grossly intact Psych/Mental Status: Normal Affect, Appropriate Vital Signs Temp Pulse Resp BP Pulse Ox 98.7 F 68 16 109/58 L 94 12/17/18 05:00 12/17/18 05:00 12/17/18 05:00 12/17/18 05:00 12/17/18 05:00 Oxygen Delivery Method Room Air Weight: 63 kg Body Mass Index (BMI) 19.3 Intake and Output for Last 24 Hours 12/15/18 12/16/18 12/17/18 23:59 23:59 23:59 Intake Total 4478.33 / 5418.33 2223.75 / 2223.75 Output Total 675 / 925 500 / 500 Balance 3803.33 / 4493.33 1723.75 / 1723.75 Laboratory Tests Past 24 Hrs 12/17/18 12/17/18 04:54 04:54 WBC 11.7 H RBC 3.38 L Hgb 11.5 L Hct 34.3 L MCV 101.5 H MCH 34.0 H MCHC 33.5 RDW Std Deviation 47.6 H RDW Coeff of Javier 12.8 Plt Count 154 MPV 9.8 Sodium 141 Potassium 4.0 Chloride 110 H Carbon Dioxide 23.0 Anion Gap 8 BUN 29 H Creatinine 1.56 H Estim Creat Clear Calc 35.90 Est GFR (MDRD) Af Amer 56 L Est GFR (MDRD) Non-Af 46 L BUN/Creatinine Ratio 18.6 Glucose 105 Calcium 7.7 L Medical Necessity - Tobacco Use Smoking Status: Current every day smoker Tobacco Use: Cigarettes Assessment/Plan All Active Problems Chest pain (Acute) 78-year-old male status post radical prostatectomy, advance to regular diet, home with a Melgar catheter later today.
[2018-12-17 07:44] VITALS: PULSE 60
[2018-12-17] MEDS: Docusate Sodium 100 MG Capsule PO (08:03)
[2018-12-17] MEDS: Calcium (Elemental) 500 MG Tablet PO (08:03)
[2018-12-17] MEDS: Pantoprazole Sodium 40 MG Tablet PO (08:03)
[2018-12-17] MEDS: predniSONE 5 MG Tablet 2.5 MG PO (08:11)
[2018-12-17 11:44] VITALS: BP 98/63; PULSE 60; RESP 12; TEMP 36.5; O2SAT 100
== END 2018-12-17 13:13 | disposition home or self-care (01) ==
LOC: SDC 06:20 → AC 06:21 → MS3 12-17 10:24
PROVIDERS: Anesthesiology; Family Provider Family Medicine; PCP Family Medicine; Referring Provider Urology; Visit Provider Urology
PROC: 0VT04ZZ Resection of Prostate, Percutaneous Endoscopic Approach (ICD-10-PCS; CPT 55866; principal; 2018-12-16 07:40)
DX: C61 Malignant neoplasm of prostate (principal); N40.1 Benign prostatic hyperplasia with lower urinary tract symptoms; R35.0 Frequency of micturition; R35.1 Nocturia; I10 Essential (primary) hypertension; E78.00 Pure hypercholesterolemia, unspecified; E03.9 Hypothyroidism, unspecified; Z85.51 Personal history of malignant neoplasm of bladder; Z79.82 Long term (current) use of aspirin; Z79.899 Other long term (current) drug therapy; F17.210 Nicotine dependence, cigarettes, uncomplicated
CPT/HCPCS: 55866; 36415; 71046; 80048; 80053; 84443; 85027; 86850; 86900; 86901; 86920; 86922; 88304; 88305; 88309; 88312; 99406; J7030; J7120; A4216; J0744; J2405

== ENCOUNTER → 2019-03-22 15:11 | Outpatient (CLI) | payer MEDICARE, OTHER, SELFPAY ==
[2018-12-16 13:01] VITALS: BMI 19.3
[2019-03-22 17:30] LABS: Erythrocyte Sedimentation Rate 11 mm/hr (0-20)
[2019-03-22 17:32] LABS: Hemoglobin 14.5 g/dL (13.0-16.5); Mean Corp Hgb Conc 33.7 g/dL (32-36); Mean Corpuscular Hgb 34.9 pg (27.0-32.0); Mean Corpuscular Volume 103.4 fL (80-94); Mean Platelet Vol. 9.8 fl (6.2-12.0); Platelet Count 214 K/mm3 (150-450); RBC Distribution Width CV 12.6 % (11.6-14.6); RBC Distribution Width SD 47.7 fl (35.1-43.9); Red Blood Count 4.16 M/mm3 (4.6-6.2); White Blood Count 8.7 K/mm3 (4.4-11.0)
[2019-03-22 18:04] LABS: Albumin, Serum 3.9 g/dL (3.2-5.0); BUN 46 mg/dL (7-18); BUN/Creat Ratio 27.4 RATIO (10-20); Calcium,Total 9.3 mg/dL (8.5-10.1); Chloride 108 mmol/L (98-107); Creatinine, Serum 1.68 mg/dL (0.70-1.30); EST Glomerular Filtration Rate 42 mL/min (>60); Est Glom Filt Rate - Afr Amer 51 mL/min (>60); Glucose 92 mg/dL (74-106); Phosphorus 3.8 mg/dL (2.5-4.9); Potassium 4.5 mmol/L (3.5-5.1); Sodium Level 142 mmol/L (136-145); Thyroid Stim Hormone (TSH) 3.55 uIU/mL (0.358-3.74)
== END ==
PROVIDERS: Family Provider Family Medicine; PCP Family Medicine; Visit Provider Internal Medicine Nephrology
DX: M35.3 Polymyalgia rheumatica (principal); I12.9 Hypertensive chronic kidney disease with stage 1 through stage 4 chronic kidney disease, or unspecified chronic kidney disease; N18.3 Chronic kidney disease, stage 3 (moderate)
CPT/HCPCS: 36415; 80069; 84443; 85027; 85652

== ENCOUNTER → 2019-04-01 13:11 | Outpatient (CLI) | payer MEDICARE, OTHER, SELFPAY ==
[2018-12-16 13:01] VITALS: BMI 19.3
--- NOTE | 2019-04-01 13:23 | BD_ITS ---
STUDY: DUAL ENERGY X-RAY ABSORPTIOMETRY / DXA REASON FOR EXAM: Male, 78 years old. SMOKER -- HAS BEEN ON PREDNISONE x3-4 YRS -- TAKES LEVOTHYROXIN -- TAKES 600MG CALCIUM -- DOES LITTLE EXERCISE -- SHIRLEY OF 2 INCHES TECHNIQUE: Bone Mineral Density (BMD) measurements of lumbar spine and bilateral hips were obtained. COMPARISON: Comparison is made with prior study dated August 21, 2016. FINDINGS: Lumbar Spine (L1-L4): g/cm2 (1.275) / T-score (0.6) / Z-score (1.3) Findings are suggestive of normal bone density with a low fracture risk. Left Femur Total: g/cm2 (0.999) / T-score (-0.7) / Z-score (0.2) Left Femoral Neck: g/cm2 (0.943) / T-score (-1.0) / Z-score (0.5) Right Femur Total: g/cm2 (1.057) / T-score (-0.3) / Z-score (0.6) Right Femoral Neck: g/cm2 (0.981) / T-score (-0.7) / Z-score (0.7) The T-Scores on the most recent prior examination were: Lumbar Spine (L1-L4): There has been improvement of bone density since the previous examination. Left Femur Total: which represents a worsening of 1.4%. Right Femur Total: which represents an improvement of 1.7%. BD/Dexa Bone Density Study IMPRESSION: The patient is considered normal as outlined below according to World [employer] Organization (WHO) criteria with a low fracture risk. There has been improvement of bone density since the previous examination. Reference Information: The T-score is the number of standard deviations above or below the standard which is normal for young adults at their peak bone mineral density. The World Health Organization (WHO) interprets the T-scores as follows: Above -1 Normal bone density Between -1 and -2.5 Osteopenia Equal to / or below -2.5 Osteoporosis As a practical clinical guideline, osteopenia may be graded as follows: Mild -1 through -1.5 Moderate -1.6 through -2.0 Severe -2.1 through -2.4 The Z-score is the number of standard deviations above or below age-matched controls. A Z-score of less than -1.5 would be considered abnormal. References: 1. NIH Osteoporosis and Related Bone Diseases http://www.osteo.org 2. International Society for Clinical Densitometry http://www.iscd.org 3. National Osteoporosis Foundation http://www.nof.org Electronically Signed: Devin Mackay, at 15:59 EST , Service support ,
[2019-04-01 14:34] LABS: PSA,Total- Diagnostic < 0.01 ng/mL (0.0-4.0)
== END ==
PROVIDERS: Family Provider Family Medicine; PCP Family Medicine; Referring Provider Urology; Visit Provider Urology
DX: M85.852 Other specified disorders of bone density and structure, left thigh (principal); C61 Malignant neoplasm of prostate
CPT/HCPCS: 36415; 77080; 84153

== ENCOUNTER → 2019-04-27 13:50 | Outpatient (CLI) | payer MEDICARE, OTHER, SELFPAY ==
[2018-12-16 13:01] VITALS: BMI 19.3
[2019-04-27 16:09] LABS: Albumin, Serum 3.8 g/dL (3.2-5.0); BUN 28 mg/dL (7-18); BUN/Creat Ratio 14.9 RATIO (10-20); Calcium,Total 9.3 mg/dL (8.5-10.1); Chloride 107 mmol/L (98-107); Creatinine, Serum 1.88 mg/dL (0.70-1.30); EST Glomerular Filtration Rate 37 mL/min (>60); Est Glom Filt Rate - Afr Amer 45 mL/min (>60); Glucose 80 mg/dL (74-106); Phosphorus 3.2 mg/dL (2.5-4.9); Potassium 4.5 mmol/L (3.5-5.1); Sodium Level 140 mmol/L (136-145)
== END ==
PROVIDERS: PCP Family Medicine; Referring Provider Internal Medicine Nephrology; Visit Provider Internal Medicine Nephrology
DX: N18.3 Chronic kidney disease, stage 3 (moderate) (principal)
CPT/HCPCS: 36415; 80069

== ENCOUNTER → 2019-05-04 10:58 | Outpatient (CLI) | payer MEDICARE, OTHER, SELFPAY ==
[2018-12-16 13:01] VITALS: BMI 19.3
[2019-05-04 12:57] LABS: Albumin, Serum 3.9 g/dL (3.2-5.0); BUN 35 mg/dL (7-18); BUN/Creat Ratio 24.1 RATIO (10-20); Calcium,Total 9.5 mg/dL (8.5-10.1); Chloride 106 mmol/L (98-107); Creatinine, Serum 1.45 mg/dL (0.70-1.30); EST Glomerular Filtration Rate 50 mL/min (>60); Est Glom Filt Rate - Afr Amer 61 mL/min (>60); Glucose 75 mg/dL (74-106); Phosphorus 3.4 mg/dL (2.5-4.9); Potassium 4.6 mmol/L (3.5-5.1); Sodium Level 138 mmol/L (136-145)
== END ==
PROVIDERS: PCP Family Medicine; Referring Provider Family Medicine; Visit Provider Internal Medicine Nephrology
DX: N18.3 Chronic kidney disease, stage 3 (moderate) (principal)
CPT/HCPCS: 36415; 80069

== ENCOUNTER → 2019-09-22 10:41 | Outpatient (CLI) | payer MEDICARE, OTHER, SELFPAY ==
[2018-12-16 13:01] VITALS: BMI 19.3
[2019-09-22 13:06] LABS: Vitamin D,25 Hydroxy 41.6 ng/mL
[2019-09-22 13:08] LABS: Albumin, Serum 3.8 g/dL (3.2-5.0); BUN 28 mg/dL (7-18); BUN/Creat Ratio 19.6 RATIO (10-20); Calcium,Total 9.2 mg/dL (8.5-10.1); Chloride 106 mmol/L (98-107); Cholesterol 151 mg/dL (200); Creatinine, Serum 1.43 mg/dL (0.70-1.30); EST Glomerular Filtration Rate 51 mL/min (>60); Est Glom Filt Rate - Afr Amer 62 mL/min (>60); Glucose 79 mg/dL (74-106); High Density Lipoprotein 53 mg/dL; Phosphorus 2.4 mg/dL (2.5-4.9); Potassium 3.5 mmol/L (3.5-5.1); Sodium Level 140 mmol/L (136-145); T4 Free Direct 1.01 ng/dL (0.76-1.46); Thyroid Stim Hormone (TSH) 1.46 uIU/mL (0.358-3.74); Triglycerides 136 mg/dL; Very Low Density Lipoprotein 27 mg/dL (5-40)
== END ==
PROVIDERS: Internal Medicine Nephrology; PCP Family Medicine; Visit Provider Family Medicine
DX: E78.2 Mixed hyperlipidemia (principal); E03.9 Hypothyroidism, unspecified; M85.80 Other specified disorders of bone density and structure, unspecified site; N18.3 Chronic kidney disease, stage 3 (moderate)
CPT/HCPCS: 36415; 80061; 80069; 82306; 84439; 84443

== ENCOUNTER → 2019-09-28 10:28 | Outpatient (CLI) | payer MEDICARE, OTHER, SELFPAY ==
[2018-12-16 13:01] VITALS: BMI 19.3
[2019-09-29 07:10] LABS: PSA,Total- Diagnostic < 0.01 ng/mL (0.0-4.0)
== END ==
PROVIDERS: PCP Family Medicine; Referring Provider Urology; Visit Provider Urology
DX: C61 Malignant neoplasm of prostate (principal)
CPT/HCPCS: 36415; 84153; G0103

== ENCOUNTER → 2020-04-11 09:55 | Outpatient (CLI) | payer MEDICARE, OTHER, SELFPAY ==
[2018-12-16 13:01] VITALS: BMI 19.3
[2020-04-11 12:44] LABS: PSA,Total- Diagnostic < 0.01 ng/mL (0.0-4.0)
== END ==
PROVIDERS: PCP Family Medicine; Referring Provider Family Medicine; Visit Provider Urology
DX: C61 Malignant neoplasm of prostate (principal)
CPT/HCPCS: 36415; 84153

== ENCOUNTER → 2020-05-17 09:58 | Outpatient (CLI) | payer MEDICARE, OTHER, SELFPAY ==
[2018-12-16 13:01] VITALS: BMI 19.3
[2020-05-17 12:56] LABS: BUN 24 mg/dL (7-18); BUN/Creat Ratio 16.6 RATIO (10-20); Calcium,Total 9.4 mg/dL (8.5-10.1); Chloride 104 mmol/L (98-107); Creatinine, Serum 1.45 mg/dL (0.70-1.30); EST Glomerular Filtration Rate 50 mL/min (>60); Est Glom Filt Rate - Afr Amer 61 mL/min (>60); Glucose 84 mg/dL (74-106); Phosphorus 2.6 mg/dL (2.5-4.9); Potassium 3.7 mmol/L (3.5-5.1); Sodium Level 137 mmol/L (136-145)
[2020-05-17 12:59] LABS: PTHIN 49.4 pg/mL (18.4-80.1)
== END ==
PROVIDERS: PCP Family Medicine; Referring Provider Family Medicine; Visit Provider Internal Medicine Nephrology
DX: N18.30 Chronic kidney disease, stage 3 unspecified (principal)
CPT/HCPCS: 36415; 80069; 83970

== ENCOUNTER → 2020-10-30 10:53 | Outpatient (CLI) | payer MEDICARE, OTHER, SELFPAY ==
[2018-12-16 13:01] VITALS: BMI 19.3
[2020-10-30 13:20] LABS: PSA,Total- Diagnostic < 0.01 ng/mL (0.0-4.0)
== END ==
PROVIDERS: PCP Family Medicine; Visit Provider Urology
DX: Z85.51 Personal history of malignant neoplasm of bladder (principal)
CPT/HCPCS: 36415; 84153

== ENCOUNTER → 2021-01-02 08:19 | Outpatient (CLI) | payer MEDICARE, OTHER, SELFPAY ==
[2021-01-02 10:05] LABS: Hematocrit 44.6 % (40-54); Mean Corp Hgb Conc 33.6 g/dL (32-36); Mean Corpuscular Volume 104.2 fL (80-94); Mean Platelet Vol. 9.7 fl (6.2-12.0); Platelet Count 210 K/mm3 (150-450); RBC Distribution Width CV 13.2 % (11.6-14.6); RBC Distribution Width SD 50.4 fl (35.1-43.9); Red Blood Count 4.28 M/mm3 (4.6-6.2); White Blood Count 7.6 K/mm3 (4.4-11.0)
[2021-01-02 10:43] LABS: ALB/GLOB Ratio 0.9 RATIO (0.9-2.4); AST(SGOT) 27 U/L (15-37); Alanine Aminotransfer ALT/SGPT 32 U/L (16-61); Albumin, Serum 3.6 g/dL (3.2-5.0); Alkaline Phosphatase 65 U/L (45-117); Anion Gap 10 (5-15); BUN 32 mg/dL (7-18); BUN/Creat Ratio 20.9 RATIO (10-20); Calcium,Total 9.2 mg/dL (8.5-10.1); Chloride 103 mmol/L (98-107); Cholesterol 152 mg/dL (200); Creatinine, Serum 1.53 mg/dL (0.70-1.30); EST Glomerular Filtration Rate 47 mL/min (>60); Est Glom Filt Rate - Afr Amer 57 mL/min (>60); Globulin 4.1 g/dL (2.2-4.2); Glucose 86 mg/dL (74-106); High Density Lipoprotein 65 mg/dL; Potassium 4.2 mmol/L (3.5-5.1); Protein, Total 7.7 g/dL (6.4-8.2); Sodium Level 140 mmol/L (136-145); Thyroid Stim Hormone (TSH) 3.62 uIU/mL (0.358-3.74); Triglycerides 77 mg/dL; Very Low Density Lipoprotein 15 mg/dL (5-40)
== END ==
PROVIDERS: PCP Family Medicine; Referring Provider Family Medicine; Visit Provider Family Medicine
DX: E78.2 Mixed hyperlipidemia (principal); E03.9 Hypothyroidism, unspecified; K21.9 Gastro-esophageal reflux disease without esophagitis
CPT/HCPCS: 36415; 80053; 80061; 84443; 85027

== ENCOUNTER 2021-04-30 09:19 | Outpatient (CLI) | payer MEDICARE, OTHER, SELFPAY ==
[2018-12-16 13:01] VITALS: BMI 19.3
[2021-04-30 10:47] LABS: PSA,Total- Diagnostic 0.01 ng/mL (0.0-4.0)
== END 2021-04-30 23:59 | disposition short-term general hospital (02) ==
LOC: MTLAB 09:22
PROVIDERS: PCP Family Medicine; Referring Provider Nurse Practitioner Adult Health; Visit Provider Nurse Practitioner Adult Health
DX: C61 Malignant neoplasm of prostate (principal)
CPT/HCPCS: 36415; 84153

== ENCOUNTER 2021-06-20 09:31 | Outpatient (CLI) | payer MEDICARE, OTHER, SELFPAY ==
[2021-06-20 11:00] LABS: BUN 32 mg/dL (7-18); BUN/Creat Ratio 21.8 RATIO (10-20); Calcium,Total 10.3 mg/dL (8.5-10.1); Chloride 105 mmol/L (98-107); Creatinine, Serum 1.47 mg/dL (0.70-1.30); EST Glomerular Filtration Rate 49 mL/min (>60); Est Glom Filt Rate - Afr Amer 60 mL/min (>60); Glucose 88 mg/dL (74-106); Phosphorus 3.6 mg/dL (2.5-4.9); Potassium 3.8 mmol/L (3.5-5.1); Sodium Level 138 mmol/L (136-145); Thyroid Stim Hormone (TSH) 4.27 uIU/mL (0.358-3.74)
[2021-06-23 08:55] LABS: T4 Total, Thyroxin 7.6 ug/dL (4.5-12.1)
== END 2021-06-20 23:59 | disposition home or self-care (01) ==
LOC: MFPLAB 09:32
PROVIDERS: PCP Family Medicine; Referring Provider Family Medicine; Visit Provider Family Medicine
DX: N18.30 Chronic kidney disease, stage 3 unspecified (principal); E03.9 Hypothyroidism, unspecified
CPT/HCPCS: 36415; 80069; 84436; 84443

== ENCOUNTER → 2021-08-20 | Outpatient (CLI) | payer MEDICARE, OTHER, SELFPAY ==
[2021-08-20 10:55] LABS: Anion Gap 9 (5-15); BUN 39 mg/dL (7-18); BUN/Creat Ratio 26.5 RATIO (10-20); Calcium,Total 9.4 mg/dL (8.5-10.1); Chloride 106 mmol/L (98-107); Creatinine, Serum 1.47 mg/dL (0.70-1.30); EST Glomerular Filtration Rate 49 mL/min (>60); Est Glom Filt Rate - Afr Amer 60 mL/min (>60); Glucose 85 mg/dL (74-106); Potassium 4.2 mmol/L (3.5-5.1); Sodium Level 138 mmol/L (136-145)
== END | disposition home or self-care (01) ==
LOC: MFPLAB 08:15
PROVIDERS: PCP Family Medicine; Visit Provider Family Medicine
DX: E03.9 Hypothyroidism, unspecified (principal)
CPT/HCPCS: 36415; 80048; 84443

== ENCOUNTER → 2021-11-19 | Outpatient (CLI) | payer MEDICARE, OTHER, SELFPAY ==
[2021-11-19 12:51] LABS: PSA,Total- Diagnostic < 0.01 ng/mL (0.0-4.0)
== END | disposition home or self-care (01) ==
LOC: MFPLAB 09:50
PROVIDERS: PCP Family Medicine; Referring Provider Family Medicine; Visit Provider Urology
DX: C61 Malignant neoplasm of prostate (principal)
CPT/HCPCS: 36415; 84153

== ENCOUNTER → 2021-12-13 | Outpatient (CLI) | payer MEDICARE, OTHER, SELFPAY ==
[2021-12-13 14:44] LABS: ALB/GLOB Ratio 0.9 RATIO (0.9-2.4); AST(SGOT) 23 U/L (15-37); Alanine Aminotransfer ALT/SGPT 28 U/L (16-61); Albumin, Serum 3.6 g/dL (3.2-5.0); Alkaline Phosphatase 71 U/L (45-117); Anion Gap 5 (5-15); BUN 35 mg/dL (7-18); BUN/Creat Ratio 25.4 RATIO (10-20); Calcium,Total 9.7 mg/dL (8.5-10.1); Chloride 108 mmol/L (98-107); Cholesterol 154 mg/dL (200); Creatinine, Serum 1.38 mg/dL (0.70-1.30); EST Glomerular Filtration Rate 53 mL/min (>60); Est Glom Filt Rate - Afr Amer 64 mL/min (>60); Globulin 3.9 g/dL (2.2-4.2); Glucose 88 mg/dL (74-106); High Density Lipoprotein 60 mg/dL; Potassium 4.4 mmol/L (3.5-5.1); Protein, Total 7.5 g/dL (6.4-8.2); Sodium Level 141 mmol/L (136-145); T4 Free Direct 1.05 ng/dL (0.76-1.46); Thyroid Stim Hormone (TSH) 0.34 uIU/mL (0.358-3.74); Triglycerides 81 mg/dL; Very Low Density Lipoprotein 16 mg/dL (5-40)
== END | disposition home or self-care (01) ==
LOC: MFPLAB 08:10
PROVIDERS: PCP Family Medicine; Referring Provider Family Medicine; Visit Provider Family Medicine
DX: E03.9 Hypothyroidism, unspecified (principal); E78.2 Mixed hyperlipidemia
CPT/HCPCS: 36415; 80053; 80061; 84439; 84443

== ENCOUNTER → 2022-06-17 | Outpatient (CLI) | payer MEDICARE, OTHER, SELFPAY ==
[2022-06-17 15:21] LABS: Hematocrit 47.2 % (40-54); Hemoglobin 15.4 g/dL (13.0-16.5); Mean Corp Hgb Conc 32.6 g/dL (32-36); Mean Corpuscular Hgb 33.6 pg (27.0-32.0); Mean Corpuscular Volume 102.8 fL (80-94); Mean Platelet Vol. 9.9 fl (6.2-12.0); Platelet Count 234 K/mm3 (150-450); RBC Distribution Width CV 12.7 % (11.6-14.6); RBC Distribution Width SD 48.1 fl (35.1-43.9); Red Blood Count 4.59 M/mm3 (4.6-6.2); White Blood Count 7.2 K/mm3 (4.4-11.0)
[2022-06-17 15:44] LABS: ALB/GLOB Ratio 1.1 RATIO (0.9-2.4); AST(SGOT) 23 U/L (15-37); Alanine Aminotransfer ALT/SGPT 28 U/L (16-61); Albumin, Serum 4.1 g/dL (3.2-5.0); Alkaline Phosphatase 79 U/L (45-117); Anion Gap 8 (5-15); BUN 33 mg/dL (7-18); BUN/Creat Ratio 22.1 RATIO (10-20); Calcium,Total 9.8 mg/dL (8.5-10.1); Chloride 107 mmol/L (98-107); Cholesterol 146 mg/dL (200); Creatinine, Serum 1.49 mg/dL (0.70-1.30); EST Glomerular Filtration Rate 48 mL/min (>60); Est Glom Filt Rate - Afr Amer 58 mL/min (>60); Globulin 3.8 g/dL (2.2-4.2); Glucose 81 mg/dL (74-106); High Density Lipoprotein 60 mg/dL; Phosphorus 2.8 mg/dL (2.5-4.9); Potassium 4.2 mmol/L (3.5-5.1); Protein, Total 7.9 g/dL (6.4-8.2); Sodium Level 141 mmol/L (136-145); Thyroid Stim Hormone (TSH) 0.66 uIU/mL (0.358-3.74); Triglycerides 110 mg/dL; Very Low Density Lipoprotein 22 mg/dL (5-40)
[2022-06-17 15:53] LABS: Vitamin B12 551 pg/mL (211-911); Vitamin D,25 Hydroxy 55.6 ng/mL
== END | disposition home or self-care (01) ==
LOC: MFPLAB 11:43
PROVIDERS: PCP Family Medicine; Visit Provider Internal Medicine Nephrology
DX: I12.9 Hypertensive chronic kidney disease with stage 1 through stage 4 chronic kidney disease, or unspecified chronic kidney disease (principal); N18.30 Chronic kidney disease, stage 3 unspecified; E53.8 Deficiency of other specified B group vitamins; E03.9 Hypothyroidism, unspecified
CPT/HCPCS: 36415; 80053; 80061; 82306; 82607; 84100; 84443; 85027

== ENCOUNTER → 2022-06-27 | Outpatient (CLI) | payer MEDICARE, OTHER, SELFPAY ==
[2022-06-27 13:27] LABS: Uric Acid 6.1 mg/dL (3.5-7.2)
== END | disposition home or self-care (01) ==
LOC: POLAB3 09:31
PROVIDERS: PCP Family Medicine; Visit Provider Internal Medicine Nephrology
DX: M79.674 Pain in right toe(s) (principal)
CPT/HCPCS: 36415; 84550

== ENCOUNTER → 2022-08-08 | Outpatient (CLI) | payer MEDICARE, OTHER, SELFPAY ==
--- NOTE | 2022-08-08 09:47 | ART_ITS ---
Reason For Study: Atherosclerosis Procedure A bilateral lower extremity continuous wave Doppler with analog waveform analysis and ankle brachial indexes. Left Segmental Pressures Left brachial= 146mmHg. Left posterior tibial artery = 75mmHg. Left dorsalis pedis artery = 69mmHg. The left dorsalis pedis waveforms are monophasic. The left posterior tibial artery waveforms are monophasic. Right Segmental Pressures Right brachial= 144mmHg. Right posterior tibial artery = 60mmHg. Right dorsalis pedis artery = 57mmHg. The right dorsalis pedis waveforms are monophasic. The right posterior tibial artery waveforms are monophasic. Indices The right ankle brachial index by the dorsalis pedis is 0.39. The right ankle brachial index by the posterior tibial artery is 0.41. The left ankle brachial index by the dorsalis pedis is 0.47. The left ankle brachial index by the posterior tibial artery is 0.51. . Preliminary report given to Caitie JAVIER. VL/Ankle Brachial Index Interpretation Summary Right WING 0.41, severe arterial insufficiency. Doppler/PVR waveforms of the rig ht ankle severely diminished. Left WING 0.51, severe arterial insufficiency. Doppler/PVR waveforms of the left ankle severely diminished. Ordering Physician: Eric Astudillo Referring Physician: Trevon Astudillo MD Performed By: Leah Goncalves RVT
== END | disposition home or self-care (01) ==
LOC: CVS 09:42
PROVIDERS: PCP Family Medicine; Referring Provider Family Medicine; Visit Provider Family Medicine
DX: I70.212 Atherosclerosis of native arteries of extremities with intermittent claudication, left leg (principal)
CPT/HCPCS: 93922

== ENCOUNTER → 2022-08-29 | Outpatient (CLI) | payer MEDICARE, OTHER, SELFPAY ==
[2022-08-29 16:38] LABS: Creatinine, Serum 1.44 mg/dL (0.70-1.30); EST Glomerular Filtration Rate 50 mL/min (>60); Est Glom Filt Rate - Afr Amer 61 mL/min (>60)
== END | disposition home or self-care (01) ==
LOC: LAB 15:18
PROVIDERS: PCP Family Medicine; Visit Provider Surgery Trauma Surgery
DX: Z95.828 Presence of other vascular implants and grafts (principal); I73.9 Peripheral vascular disease, unspecified
CPT/HCPCS: 36415; 82565

== ENCOUNTER → 2022-09-10 | Outpatient (CLI) | payer MEDICARE, OTHER, SELFPAY ==
--- NOTE | 2022-09-10 08:08 | CT_ITS ---
STUDY: CTA OF THE ABDOMINAL AORTA AND BILATERAL LOWER EXTREMITIES REASON FOR EXAM: Male, 81 years old. atherosclerosis with rest pain. Prior left femoral-femoral bypass. Prostate cancer and bladder cancer. RADIATION DOSAGE (If Supplied By Facility): CTDIvol = ( 7.64 ) mGy, DLP = ( 945.66 ) mGycm TECHNIQUE: Axial CT angiography multi-detector data acquisition was obtained from the dome of the liver to the level of the ankles following intravenous administration of IV 100mL Isovue-370. Axial images and MIP images were reconstructed from the axial data set. Post-processing of the angiographic images was performed, with multiplanar reformation and 3D reconstruction. Individualized dose optimization techniques were used for this CT. TECHNICAL QUALITY: Good COMPARISON: Comparison is made with prior study dated February 08, 2011. Descriptors of Narrowing: None (0%) Mild (< 50%) Moderate (50-70%) Severe (70-90%) Subtotal/Total Occlusion (90-100%) Non-Evaluable (technically non-diagnostic FINDINGS: Findings suggestive of linear and focal nodular scarring in the posterior segment of the right lower lobe. Linear scarring in the left lower lobe. 1.1 cm focal enhancing nodule in the lateral left lobe of the liver. A focal enhancing nodule measuring 2.6 mm also seen in the anterior aspect of the left lobe of the liver medially. There is also evidence of a 1.17 m cyst in the inferior medial aspect of the left lobe of the liver. Left paraumbilical hernia containing fat. The neck of the hernia measures 1.7 cm. Status post prostatectomy. Diffuse sigmoid diverticulosis. Bladder wall thickening. Abdominal aorta: Atherosclerotic plaque formation of the abdominal aorta. The transverse dimension of the abdominal aorta measures 2.9 cm Celiac and superior mesenteric arteries: Mild plaque formation at the origin of the superior mesenteric artery and celiac artery. Inferior mesenteric artery: Not seen Right renal artery(arteries): No demonstrated narrowing. Left renal artery(arteries): No demonstrated narrowing. Right common iliac artery: There is atherosclerotic calcification of the common iliac artery. Right external iliac artery: Dense atherosclerotic plaque formation. Right internal iliac artery: No demonstrated narrowing. Left common iliac artery: There is atherosclerotic plaque formation of the left common iliac artery. Its distal portion is occluded. Left external iliac artery: Occlusion. Left internal iliac artery: No demonstrated narrowing. A femorofemoral bypass graft is seen. The graft is occluded. RIGHT LOWER EXTREMITY Right common femoral artery: No demonstrated narrowing. Right profundus femoris: No demonstrated narrowing. Right superficial femoral: Diffuse atherosclerotic plaque formation. Focal stenoses are seen in its distal portion. Right popliteal artery: Calcified plaques throughout the popliteal artery. Right tibioperoneal trunk: No demonstrated narrowing. Right anterior tibial artery: No demonstrated narrowing. Right posterior tibial artery: No demonstrated narrowing. Right peroneal artery: No demonstrated narrowing. LEFT LOWER EXTREMITY Left common femoral artery: Via collateral circulation from the aorta, there is opacification of the distal portion of the common femoral artery. Left profundus femoris: No demonstrated narrowing. Left superficial femoral: Atherosclerotic plaque formation is seen throughout its course. Left popliteal artery: Atherosclerotic plaque formation Left tibioperoneal trunk: No demonstrated narrowing. Left anterior tibial artery: No demonstrated narrowing. Left posterior tibial artery: No demonstrated narrowing. Left peroneal artery: No demonstrated narrowing. CT/CTA Abd w/Runoff W/WO Contrast IMPRESSION: Occlusion of the femoral-femoral bypass graft. Occluded left common iliac artery, left external iliac artery and left common femoral artery and reconstitution of the left superficial femoral artery. Electronically Signed: Devin Mackay MD at 15:35 EDT ,
--- NOTE | 2022-09-10 08:08 | CDU_ITS ---
Reason For Study: Carotid bruit Rt. Velocities/BP Lt. Velocities/BP Prox CCA 78.7/16.3 cm/sec. Prox CCA 87.6/22.5 cm/sec. Mid CCA 76.8/18.2 cm/sec. Mid CCA 71.6/22.5 cm/sec. Dist CCA 68.3/17.3 cm/sec. Dist CCA 72.8/22.5 cm/sec. Prox ICA 85/28.9 cm/sec. Prox ICA 77.7/27.4 cm/sec. Mid ICA 100.3/28.9 cm/sec. Mid ICA 79/24.9 cm/sec. Dist ICA 97.1/31.1 cm/sec. Dist ICA 87.6/32.3 cm/sec. Rt. ICA/CCA = 1.31. Lt. ICA/CCA = 1.20. Prox ECA 117.4/13.3 cm/sec. Prox ECA 75.3/11.4 cm/sec. Rt. Vert. 94.9/15.1 cm/sec. Lt. Vert. 46.6/14.5 cm/sec. Right Extracranial There is homogeneous, smooth atherosclerotic plaque noted in the right common carotid artery. There is heterogeneous, irregular atherosclerotic plaque noted in the right internal carotid artery. There is heterogeneous, irregular atherosclerotic plaque noted in the right external carotid artery. Antegrade flow is noted in the right vertebral artery. Left Extracranial There is homogeneous, smooth atherosclerotic plaque noted in the left common carotid artery. There is heterogeneous, irregular atherosclerotic plaque noted in the left internal carotid artery. There is heterogeneous, irregular atherosclerotic plaque noted in the left external carotid artery. Antegrade flow is noted in the left vertebral artery. Procedure Carotid Duplex 28775. This is a Carotid Duplex examination using B-mode, color flow and specral Doppler. Exam performed in department. VL/Carotid Duplex Ultrasound Interpretation Summary Mild (<50%) stenosis right extracranial internal carotid. Mild (<50%) stenosis left extracranial internal carotid. Patent and antegrade vertebrals bilaterally. Ordering Physician: Jai Segura Referring Physician: Trevon Astudillo MD Performed By: Leah Goncalves RVT and Student
== END | disposition home or self-care (01) ==
LOC: CT 07:52
PROVIDERS: PCP Family Medicine; Referring Provider Surgery Trauma Surgery; Visit Provider Surgery Trauma Surgery
DX: R09.89 Other specified symptoms and signs involving the circulatory and respiratory systems (principal); I73.9 Peripheral vascular disease, unspecified; I65.21 Occlusion and stenosis of right carotid artery
CPT/HCPCS: 75635; 93880; Q9967

== ENCOUNTER → 2022-10-14 | Outpatient (CLI) | payer MEDICARE, OTHER, SELFPAY ==
--- NOTE | 2022-10-14 14:56 | VDLE_ITS ---
Reason For Study: Pre op for fem-pop bypass RIGHT LEFT GSV prox thigh, 0.34 x 0.34 cm. GSV prox thigh, 0.39 x 0.45 cm. GSV mid thigh, 0.39 x 0.42 cm. GSV mid thigh, 0.53 x 0.58 cm. GSV distal thigh, 0.43 x 0.46 cm. GSV distal thigh, 0.47 x 0.49 cm. GSV knee, 0.34 x 0.38 cm. GSV knee, 0.40 x 0.48 cm. GSV prox calf, 0.46 x 0.49 cm. GSV prox calf, 0.19 x 0.21 cm. GSV mid calf, 0.37 x 0.41 cm. GSV mid calf, 0.19 x 0.24 cm. GSV distal calf, 0.43 x 0.48 cm. GSV distal calf, 0.20 x 0.20 cm. ASV from junction, prox thigh, 0.35 x 0.35 SSV prox, 0.34 x 0.35 cm. cm. SSV mid, 0.27 x 0.23 cm. ASV from junction, mid thigh, 0.40 x 0.41 cm. SSV distal, 0.31 x 0.33 cm. ASV from junction, distal thigh, 0.34 x 0.36 cm. GSV and SSV is compressible. ASV from junction, knee, 0.28 x 0.31 cm. SSV prox, 0.43 x 0.47 cm. SSV mid, 0.35 x 0.36 cm. SSV distal, 0.37 x 0.45 cm. GSV and SSV is compressible. Procedure Exam performed in department. This is a venous duplex using B-mode, color flow and spectral Doppler. VL/Saphenous Vein Mapping, Bilat Interpretation Summary Right great saphenous vein patent with measurements above. Right accessory saphenous vein patent with measurements above. Right small saphenous vein patent with measurements above. Left great saphenous vein patent with measurements above. Ordering Physician: Jai Segura Referring Physician: Trevon Astudillo MD Performed By: Leah Goncalves RVT
== END | disposition home or self-care (01) ==
LOC: CVS 14:46
PROVIDERS: PCP Family Medicine; Referring Provider Surgery Trauma Surgery; Visit Provider Surgery Trauma Surgery
DX: Z01.818 Encounter for other preprocedural examination (principal); I70.229 Atherosclerosis of native arteries of extremities with rest pain, unspecified extremity; R07.9 Chest pain, unspecified
CPT/HCPCS: 93970

== ENCOUNTER → 2022-10-22 | Outpatient (CLI) | payer MEDICARE, OTHER, SELFPAY ==
--- NOTE | 2022-10-22 10:39 | STRESSREP ---
Stress Test Report Date: 10/22/2022 Procedure: Pharmacologic stress nuclear imaging study Indications: Preoperative evaluation Consent: Per the patient Procedure: The patient underwent pharmacologic (Regadenoson 0.4mg ) evaluation with a peak heart rate of 100 beats per minute (71% predicted maximal heart rate) and a peak blood pressure of 122/62 mmHg. The baseline ECG demonstrated normal sinus rhythm. The peak pharmacologic ECG demonstrated no ischemic changes. There were no cardiac dysrhythmias pretest, during pharmacologic infusion, or recovery. There was no complaint of chest discomfort during pharmacologic infusion or recovery. The patient was injected with 11.3 millicuries of technetium 99m Cardiolite and subsequently rest SPECT Cardiolite nuclear imaging was obtained in the horizontal long, vertical long, and short axis views. The patient underwent pharmacologic (Regadenoson) evaluation. The patient was injected with 34.1 millicuries of technetium 99m Cardiolite and subsequently stress SPECT Cardiolite nuclear imaging was obtained in the horizontal long, vertical long, and short axis views. A gated Cardiolite study at peak stress was obtained. The examination was stopped secondary to completion of protocol. Rest and stress SPECT Cardiolite nuclear imaging status post realignment, normalization, and attenuation correction demonstrate no fixed or reversible perfusion defects. There is end systolic thickening and brightening. The gated Cardiolite study demonstrates myocardial thickening and inward wall motion. The reported LVEF is 74%. Impression: 1. Pharmacologic (Regadenoson) evaluation 2. Peak pharmacologic ECG with no ischemic changes. 3. There were no cardiac dysrhythmias pretest, during pharmacologic infusion, or recovery. 5. Rest and stress SPECT Cardiolite nuclear imaging demonstrate relative uniform tracer uptake and myocardial perfusion appearing within normal limits. 6. The gated Cardiolite study reports an LVEF of 74%. This note was generated with [employer] software. It may contain incorrect words, spelling, and punctuation that were not noted in checking the note before signing.
== END | disposition home or self-care (01) ==
PROVIDERS: PCP Family Medicine; Referring Provider Surgery Trauma Surgery; Visit Provider Surgery Trauma Surgery
DX: Z01.818 Encounter for other preprocedural examination (principal); Z01.810 Encounter for preprocedural cardiovascular examination; R94.31 Abnormal electrocardiogram [ECG] [EKG]
CPT/HCPCS: 78452; 93017; A9500; A4216; J2785

== ENCOUNTER 2022-10-28 05:25 | Inpatient (IN) | payer MEDICARE, OTHER, SELFPAY ==
[2022-10-22 09:31] LABS: Hematocrit 42.2 % (40-54); Mean Corp Hgb Conc 33.2 g/dL (32-36); Mean Corpuscular Hgb 33.7 pg (27.0-32.0); Mean Corpuscular Volume 101.7 fL (80-94); Mean Platelet Vol. 9.5 fl (6.2-12.0); Platelet Count 242 K/mm3 (150-450); RBC Distribution Width CV 12.6 % (11.6-14.6); RBC Distribution Width SD 47.3 fl (35.1-43.9); Red Blood Count 4.15 M/mm3 (4.6-6.2); White Blood Count 8.4 K/mm3 (4.4-11.0)
[2022-10-22 09:43] LABS: International Normalized Ratio 0.9; Prothrombin Time (Protime)PT. 12.5 SECONDS (11.7-14.9)
[2022-10-22 09:44] LABS: Partial Thromboplast Time 33.1 Seconds (24.1-36.2)
[2022-10-22 10:02] LABS: Anion Gap 5 (5-15); BUN 32 mg/dL (7-18); BUN/Creat Ratio 21.2 RATIO (10-20); Calcium,Total 9.4 mg/dL (8.5-10.1); Chloride 112 mmol/L (98-107); Creatinine, Serum 1.51 mg/dL (0.70-1.30); EST Glomerular Filtration Rate 48 mL/min (>60); Est Glom Filt Rate - Afr Amer 58 mL/min (>60); Glucose 87 mg/dL (74-106); Potassium 4.2 mmol/L (3.5-5.1); Sodium Level 140 mmol/L (136-145)
[2022-10-22 10:08] LABS: AST(SGOT) 27 U/L (15-37); Alanine Aminotransfer ALT/SGPT 26 U/L (16-61); Albumin, Serum 3.9 g/dL (3.2-5.0); Alkaline Phosphatase 91 U/L (45-117); Globulin 4.3 g/dL (2.2-4.2); Protein, Total 8.2 g/dL (6.4-8.2)
[2022-10-28] VITALS (15 sets, daily range): BP systolic 85–146; BP diastolic 37–78; PULSE 74–111; RESP 11–28; TEMP 36.1–36.5; O2SAT 96–100; BMI 17.3; BMI 17.7
[2022-10-28] MEDS: Lactated Ringers 1,000 ML 15 ML IV (06:19)
--- NOTE | 2022-10-28 07:17 | PCM.HP.BLA ---
History and Physical Allergies No Known Allergies Allergy (Verified 10/10/22 13:32) Medications aspirin 81 mg tablet,delayed release (Adult Low Dose Aspirin) 81 mg PO DAILY HEART HEALTH 12/22/14 [History Confirmed 10/10/22] levothyroxine 75 mcg tablet 75 mcg PO DAILY THYROID 12/22/14 [History Confirmed 10/10/22] prednisone 5 mg tablet 2.5 mg PO DAILY ACHES 12/22/14 [History Confirmed 10/10/22] simvastatin 10 mg tablet 10 mg PO QHS CHOLESTEROL 12/22/14 [History Confirmed 10/10/22] lisinopril 20 mg tablet 20 mg PO BID BLOOD PRESSURE 01/24/15 [History Confirmed 10/10/22] calcium carbonate 500 mg calcium (1,250 mg) tablet 500 mg PO DAILY@0800 12/03/18 [History Confirmed 10/10/22] cilostazol 100 mg tablet 100 mg PO BID #120 tabs 08/29/22 [Rx Confirmed 10/10/22] PFSH Medical History H/O primary malignant neoplasm of urinary bladder Surgical History History of prostate surgery History of robot-assisted laparoscopic radical prostatectomy S/P femoral-femoral bypass surgery Family History Mother CancerBrother CancerFather Cancer Social History Smoking Status: Current every day smoker HPI HPI HPI: YUMIKO ROD, is a 81 M who presents to the office today for follow up of bilateral short distance claudication, RLE nocturnal rest pain. He has been taking cilostazol though it causes significant diarrhea. He has lessened nocturnal rest pain but short distance claudication unchanged. No new foot wounds. ROS General General: No weight change, appetite, fatigue, colon cancer, breast cancer or weakness HEENT HEENT: No difficulty swallowing, eye injury, eye surgery, swollen glands or hoarseness Endo Endocrine: No thyroid disease, diabetes mellitus, thyroid cancer, Hair loss, heat intolerance or cold intolerance Musc Musculoskeletal: No back problems, arthritis, rheumatoid arthritis, gout or joint pain Cardio Cardiovascular: Yes high blood pressure; No murmur, pacemaker, heart disease, atrial fibrillation, heart attack, heart stent, palpitations, shortness of breat with exertion or chest pain Psych Psychiatric: No depression, anxiety or hearing voices Resp Respiratory: No shortness of breath, No sleep apnea, No cough, No COPD, No asthma, No emphysema and No wheezing Gastro Gastrointestinal: No abdominal pain, No nausea or vomiting, No diarrhea, No constipation, No blood in stool, No acid reflux, No hemorrhoids, No ulcers, No gallbladder problem and No black,tarry stools Kevin Hematologic: No blood thinners, No blood disorders, No bleeding, No anemia and No blood clots Neuro Neurologic: No system reviewed and no additional complaints, except as documented, No as per HPI, No abnormal gait, No abnormal hearing, No abnormal movements, No abnormal speech, No behavioral changes, No burning sensations, No confusion, No convulsions, No disequilibrium, No dizziness, No localized weakness, No frequent falls, No headache(s), No lack of coordination, No loss of vision, No memory loss, Yes numbness, No other visual disturbances, No radicular pain, No restless legs, No sensory deficit, No syncope, Yes tingling, No tremor(s), No weakness and No other Exam Const General: cooperative, healthy appearing, comfortable, no acute distress and well developed Nutritional Appearance: well nourished Orientation: alert, awake and oriented x3 HENMT Head: normocephalic and atraumatic Ears: hearing grossly normal bilaterally Nose: external nose normal Eyes General: appearance normal, both eyes and all related structures EOM: EOM intact bilaterally Neck Neck: normal visual inspection, full ROM and trachea midline Resp Effort & Inspection: normal respiratory effort, able to speak in complete sentences, symmetric chest movement, no audible wheezes, not labored, no stridor and no use of accessory muscles Cardio Rate: regular rate Rhythm: regular rhythm Skin General: no rashes or lesions noted and no erythema Wounds: no wounds Neuro Cranial Nerves: CN's II-XI intact bilaterally and EOM intact bilaterally Speech: speech normal Gait: normal gait Motor: strength 5/5 throughout Sensory Exam: no sensory deficits noted Psych Appearance: grossly normal and well kempt Mental Status: mental status grossly normal Mood: congruent mood Affect: normal affect Speech and Movement: speech and movement normal Attitude: cooperative Thought Process: normal Thought Content: normal Judgment: judgment good Coding Level of Care Code Off vis,est,level 3 Diagnoses 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 I70.221 Laterality: right Peripheral atherosclerosis artery type: h[place] artery Peripheral atherosclerosis location: lower extremity Assessment and Plan Assessment and Plan (1) Atherosclerosis of extremity with rest pain: Status: Chronic Qualifiers: Laterality: right Peripheral atherosclerosis artery type: h[place] artery Peripheral atherosclerosis location: lower extremity Qualified Code(s): I70.221 - Atherosclerosis of houl[place] arteries of extremities with rest pain, right leg Comment: CTA- images reviewed right external iliac 40% stenosis, right common femoral 50% stenosis, right popliteal densely calcified occlusion with below knee popliteal reconstitution left external iliac occlusion, distal popliteal stenosis occluded right to left fem-fem Plan: -lifestyle limiting claudication and early rest pain -CTA with multi-level disease bilateral -redo fem-fem, right external iliac stent to optimize in-flow, right fem-BK pop bypass
[2022-10-28] MEDS: Cefazolin 2 GM in 0.9% Normal Saline 100 ML IV (07:30)
--- NOTE | 2022-10-28 07:30 | RAD_ITS ---
PROCEDURE: ANGIOGRAM - right common iliac artery. REASON FOR EXAM: Male, 82 years old. FEM POP BYPASS, ILIAC STENT, RIGHT RADIATION DOSAGE (If Supplied By Facility): 164 seconds of fluoroscopy. 39.99 mGy Intraoperative imaging provided for right common iliac artery angioplasty and stent placement. RAD/Fluoroscopy 1 Hr or Less IMPRESSION: Intraoperative imaging provided for right common iliac artery angioplasty and stent placement. Electronically Signed: Devin Mackay MD at 14:24 EDT ,
--- NOTE | 2022-10-28 07:30 | PLAQ_PTH ---
PATIENT: YUMIKO ORD LOC: ICU U#:[id number] AGE/SX: 82/M ROOM: [place] [id number] RE10/28/[address]: Dr. Jai Segura MD : [id number] BED: 1 DIS: 10/31/2022 SPEC #: [id number] RECD: 10/29/22 07:21 STATUS: MARGO BRIGGS #: [id number] LUIS FELIPE: 10/28/22 07:[address]: Jai Segura DEPT: SURGICAL PATHOLOGY RECD BY: Destiney Fairbanks ENTERED: 10/29/22 08:56 SP TYPE: PLAQUE JONATHAN DR: Dr. Trevon Astudillo MD Tissues: A - PLAQUE B - PLAQUE Procedures: Decalcification bone/plaque Surgery Specimen Level III HEADER OPERATION: Fem-pop bypass in situ saphenous vein right PRE-OP DIAGNOSIS: Atherosclerosis of [place] artery of right lower extremity with rest pain TISSUE SUBMITTED: A - Right femoral plaque, B - Left femoral plaque MICROSCOPIC DIAGNOSIS A. Right femoral plaque, endarterectomy: Atherosclerotic disease with focal calcifications (plaque). See comment. B. Left femoral plaque, endarterectomy: Atherosclerotic disease with focal calcifications (plaque). See comment. KAVYA:sharita 11/01/2022 COMMENT A & B. Synthetic material consistent with graft with adjacent chronic inflammation and foreign body giant cell reaction are also noted. Case has been reviewed in consultation with Dr. Oneill who concurs with the above diagnosis. IDC:AM GROSS DESCRIPTION A - Received in fixative is one container labeled with the patient's name and designated right femoral plaque. The specimen consists of multiple elongated, burns, indurated pieces of burns tissue that in aggregate measure 3.0 x 2.5 x 0.6 cm. The specimen cuts with gritty sensation. Scheduler sections are submitted in one cassette after decalcification. B - Received in fixative is one container labeled with the patient's name and designated left femoral plaque. The specimen consists of multiple pieces of burns, indurated tissue that in aggregate measure 2.0 x 1.0 x 0.5 cm. The specimen cuts with gritty sensation. The entire specimen is submitted in one cassette after decalcification. / KAVYA:hsarita 10/29/2022 TC:5 CPT: 93618 x2, 87561 x2
[2022-10-28] MEDS: Heparin 10,000 UNITS/10 ML Vial 10000 UNITS ×3 (08:24)
[2022-10-28] MEDS: Heparin Injection (Vial) 5,000 UNIT/ML VIAL 5000 UNIT (08:24)
--- NOTE | 2022-10-28 16:10 | PCM.OPRPT ---
Report of Operation Date of Procedure: 10/28/22 Pre-Operative Diagnosis: atherosclerosis with rest pain Post-Operative Diagnosis: same Surgery/Procedure Performed:: bilateral femoral endarterectomy right to left fem-fem bypass with cadaver right external iliac artery stent right femoral-below knee popliteal with in-situ greater saphenous vein bilateral sartorius flaps Surgeon: Jai Segura Type of Anesthesia: General Estimated Blood Loss (mL): 400 Description of Procedure: HPI: Patient is an 82-year-old male with extensive peripheral vascular disease in the previous revascularization with progressively worsening short distance and lifestyle limiting claudication as well as nocturnal rest pain in the right lower extremity. He has had no significant improvement with exercise and Pletal and presents now for revascularization. Given the redo nature of his femoral incisions plan is for bilateral sartorius flaps in addition to the revascularization. Modifier 22 was applied to the femoral-femoral bypass given the bilateral redo nature of the femoral exposure pascal as well as the need for endarterectomy of the bilateral common femoral arteries. This added an additional 1 hour to the procedure time Description of procedure: Upon obtaining informed consent and verification correct patient procedure and site patient was taken to the operating where he was placed under general anesthesia. He was then positioned prepped and draped in usual sterile fashion a timeout was performed. Oblique incision was made of the previous right femoral incision and Bovie electrocautery was dissect down through subcutaneous tissue and self-retaining retractors put in position. Sharp dissection was then used to dissect through the significant scar tissue down to the hester of the previous femoral-femoral bypass. This point we able to dissect proximally and ultimately we divided the graft to gain further exposure of the proximal common femoral artery. We then dissected free the vessel circumferentially and a right angle to place a vessel loop. We then turned attention distally and sharp dissection was carried down onto the profundofemoral artery which was dissected free circumferentially and a running was placed vessel loop. Finally the superficial margin dissected free circumferentially and a running was placed vessel loop. Next we made incision over the left femoral vessels through the previous incision oblique orientation and Bovie cautery was dissect down through subcutaneous tissue. Self-retaining retractor then put in position and further dissection carried down to the hester of the bypass graft. Sharp dissection then used to dissect free proximally in the bypass graft divided to obtain better exposure of the proximal common femoral artery. A right angle was then used to place a vessel loop on the proximal vessel and dissection carried distally onto the bifurcation. The profundofemoral artery was dissected free circumferentially and a running was placed vessel loop. Finally the superficial femoral artery was dissected free and a right angle used to place a vessel loop. Next we created a longitudinal incision in the proximal lower leg 2 fingerbreadths medial to the tibia. Bovie electrocautery was dissect down through subtenons tissue down of the fascia and the fascia was incised longitudinally. Combination of blunt and sharp dissection was used dissect free to the popliteal vessels and self-retaining retractor moved deeper in the wound. Sharp dissection used to dissect free the neurovascular bundle with care taken to identify and protect the adjacent nerve and vein. The popliteal artery in this location was soft with no significant palpable visible plaque. This was dissected free circumferentially and a right angle used to place a vessel loop proximal and distal. Next we performed skip incisions to dissect out the great saphenous vein and identify branches with plans to perform in situ bypass and utilize a valvulotome. Once the length of the vein was dissected free and all major sidebranches ligated we then tunneled from the left femoral incision to the right femoral incision in the suprapubic subcutaneous space. The patient was then heparinized and allowed to circulate for 5 minutes after which serial ACT's were performed to redose heparin. The right femoral vessels were then occluded with Vesseloops in the hester of the prior bypass graft excised the arteriotomy was then extended longitudinally proximally up to the distal external leg artery and distally down on the profunda femoral main trunk. We then used a freer elevator to perform endarterectomy of the common femoral artery onto the mid profunda with satisfactory endpoint distally. We also performed eversion endarterectomy of the SFA with plans to utilize this for our takeoff for our bypass. Next a bovine pericardial patch was brought in the field and secured in position using 6-0 Prolene in a running fashion. Prior to complete suture line vessel backbled and after completing suture line clamps removed and satisfactory hemostasis was noted. Next we accessed the midportion patch in retrograde fashion with a micropuncture needle wire. This then exchanged out for micropuncture sheath routine injection angiogram performed revealed satisfactory placement no extravasation or dissection. This also revealed location of a significant stenosis of the mid external iliac artery there was greater than 40% with plans for 2 bypasses takeoff below the stenosis is felt to be appropriate to treat in this setting. Through the micropuncture sheath Bentson wire was advanced into the abdominal aorta and the micro sheath exchanged out for a 7 Syriac sheath. Through 7 Syriac sheath we advanced an 8 x 60 Cook Zilver PTX paclitaxel coated self-expanding stent. This was then advanced and positioned centered over the stenosis of the mid external iliac artery. There is then deployed this position and postdilated with a 8 x 40 angioplasty balloon. Repeat angiography confirmed no significant stenosis remaining and no extravasation or dissection. There is improved palpable pulse in the common femoral artery. Next the common femoral artery was occluded proximally distally with Vesseloops in the 7 Syriac sheath removed. The puncture site was then extended with Jolly scissors and a cadaver femoral-popliteal artery which had been thawed per assistant women's soccer coach's instructions was then beveled to match the arteriotomy. Anastomosis performed using a 6-0 Prolene running fashion. After completing suture line vessels were flushed into the graft which was then clamped to be on the anastomosis. There is satisfactory stasis at the suture line. Next the bypass graft was marked to maintain orientation and secured to the tunneler and pulled through to the left femoral operative field. The left femoral vessels were then occluded with Vesseloops in the hester of the prior bypass graft excised. We then extended the arteriotomy down on the profundofemoral artery main trunk beyond the area of plaque. We then performed endarterectomy with satisfactory endpoint distally onto the profundofemoral artery. The bypass graft was then cut the length of valve to match the arteriotomy and anastomosis performed using a 6-0 Prolene in a running fashion. Prior to completing suture line vessel backbled and after completing suture line clamps removed satisfactory stasis was noted. There is palpable pulse in the profundofemoral and superficial femoral arteries with normal Doppler signals. Likewise the right superficial femoral artery and profundofemoral artery were palpable beyond the anastomosis with normal Doppler signals. Next to the right distal common femoral artery and superficial femoral artery were occluded with Vesseloops in longitudinal arteriotomy created 11 blade extended Jolly scissors. A limited endarterectomy of the proximal superficial artery was required with satisfactory luminal gain and widely patent origin into the common femoral artery. Next the hester of the saphenofemoral junction was clamped and divided the stump was oversewn with 5-0 Prolene and the clamps removed satisfactory stasis noted. The saphenous foot was then beveled to match the arteriotomy and anastomosis performed using 6-0 Prolene in a running fashion. After completing suture line the vessels were flushed and the graft and satisfactory stasis was noted. Next the saphenous vein in the lower leg was ligated distally and divided we then flushed the vein with heparinized saline and advanced the valvulotome to just distal to the femoral anastomosis. The valve at home was then deployed and pulled through for 2 passes after which there was flow through to the outflow end of the bypass but this was nonpulsatile in nature. Further assessment of the bypass conduit revealed a large branch anteriorly at the knee that had pulsatile flow in the subcutaneous venous structures. This was then ligated with silk tie with now pulsatile flow from the cut end of the bypass conduit. Likewise there is a strong palpable pulse throughout the saphenous vein. Popliteal artery then occluded with Vesseloops longitudinal arteriotomy created 11 blade extended Jolly scissors. The vein was then cut the length and beveled to match the arteriotomy and anastomosis was performed using a 6-0 Prolene in a running fashion. Probably suture line vessels were backbled and after completing the suture line clamps removed satisfactory stasis was noted. There is a palpable pulse in the graft and into the outflow popliteal artery. There was biphasic dorsalis pedis and posterior tibial pulses in the foot. The patient was then reversed with protamine and the incision inspected for hemostasis. We next turned our attention to the right sartorius muscle which was freed along its lateral edge up to the ASIS. This was then taken down from its insertion and the vessel transposed medially with satisfactory coverage of the femoral vessels and all the bypass grafts. This was then acute secured in position using a 2-0 Vicryl. Incision was then closed with 3-0 Vicryl and 4 Monocryl and then Dermabond for the skin. Next the attention was turned to the left sartorius muscle which was mobilized along its lateral edge to the ASIS. This was then detached from its insertion and mobilized and transposed medially with satisfactory coverage. This was secured in position with a 2-0 Vicryl followed by 3-0 Vicryl for Monocryl and Dermabond for the skin. The vein harvest incisions were then closed with 3-0 Vicryl for Monocryl and Dermabond as was the popliteal operative site. Prevena wound vacs were then applied to the bilateral femoral incisions and dry sterile dressings to the remainder of the incisions. The patient was then awakened anesthesia taken recovery room anticipated admission to the vascular.
[2022-10-28] MEDS: Clopidogrel Bisulfate 300 MG Tablet PO (17:00)
[2022-10-28] MEDS: 0.45% Normal Saline 1,000 ML 150 ML IV (17:52)
[2022-10-28] MEDS: HEPARIN/D5w 25,000 UNITS 25,000 UNITS/250 ML IV.SOLN. 3 UNITS CONT INF (20:52)
[2022-10-28] MEDS: Atorvastatin Calcium 10 MG Tablet 5 MG PO (21:04)
[2022-10-28] MEDS: Lisinopril 20 MG Tablet PO (21:05)
[2022-10-28] MEDS: Cilostazol 50 MG Tablet 100 MG PO (21:05)
[2022-10-28] MEDS: Acetaminophen 500 MG Tablet 1000 MG PO (21:05)
[2022-10-29] VITALS (44 sets, daily range): BP systolic 82–141; BP diastolic 34–72; PULSE 72–108; RESP 14–25; TEMP 36.1–37.5; O2SAT 89–100; BMI 19.1
[2022-10-29] MEDS: 0.45% Normal Saline 1,000 ML 150 ML IV ×4 (01:15→21:25)
[2022-10-29] MEDS: Albumin Human 25% (100 mL) 25 GM/100 ML BAG IV (01:16)
[2022-10-29] MEDS: 0.9% Saline Lock 10 ML Syringe IV (05:08)
[2022-10-29] MEDS: Levothyroxine 88 MCG Tablet PO (05:14)
[2022-10-29] MEDS: Acetaminophen 500 MG Tablet 1000 MG PO ×3 (05:14→21:24)
[2022-10-29 05:27] LABS: Absolute Lymphocyte Count 1.61 X10^3/uL (0.83-4.51); Absolute Neutrophil Count 4.6 X10^3/uL (2.0-7.7); Basophil# 0.02 X10^3/uL; Basophil% 0.3 % (0-1); Eosinophil# 0.06 X10^3/uL; Eosinophils% 0.9 % (0-5); Hematocrit 28.8 % (40-54); Hemoglobin 9.4 g/dL (13.0-16.5); Lymphocyte # 1.61 X10^3/ul (0.83-4.51); Lymphocyte % 22.9 % (19-41); Mean Corp Hgb Conc 32.6 g/dL (32-36); Mean Corpuscular Hgb 33.1 pg (27.0-32.0); Mean Corpuscular Volume 101.4 fL (80-94); Mean Platelet Vol. 9.8 fl (6.2-12.0); Monocyte# 0.73 X10^3/uL; Monocyte% 10.4 % (0-10); NRBC Flagged by Analyzer 0 % (0-5); Neutrophil % 65.4 % (47-70); Platelet Count 163 K/mm3 (150-450); RBC Distribution Width CV 12.8 % (11.6-14.6); RBC Distribution Width SD 47.3 fl (35.1-43.9); Red Blood Count 2.84 M/mm3 (4.6-6.2)
[2022-10-29 05:43] LABS: Anion Gap 4 (5-15); BUN 28 mg/dL (7-18); BUN/Creat Ratio 23.5 RATIO (10-20); Chloride 115 mmol/L (98-107); Creatinine, Serum 1.19 mg/dL (0.70-1.30); EST Glomerular Filtration Rate 63 mL/min (>60); Est Glom Filt Rate - Afr Amer 76 mL/min (>60); Estimated Creatinine Clearance 43.49 ml/min; Glucose 94 mg/dL (74-106); Potassium 3.7 mmol/L (3.5-5.1); Sodium Level 141 mmol/L (136-145)
[2022-10-29] MEDS: Aspirin E.C. 81 MG Tablet PO (08:28)
[2022-10-29] MEDS: Calcium (Elemental) 500 MG Tablet PO (08:28)
[2022-10-29] MEDS: Clopidogrel Bisulfate 75 MG Tablet PO (10:10)
[2022-10-29] MEDS: Cilostazol 50 MG Tablet 100 MG PO ×2 (10:10→21:24)
--- NOTE | 2022-10-29 12:20 | PCM.PN.SRG ---
Subjective Subjective BPs have been improved today compared to overnight, weaning levophed. He has done well being [facility]. Melgar was removed this morning, voiding trials. No issues with advancing diet. Pain at the incision sites which is controlled, but otherwise no rest pain in lower extremities; has not yet ambulated any significant amount. No complaints, denies dizziness/lightheadedness, CP, SOB. Objective Data Objective Data Vital Signs: Vital Signs Temp Pulse Resp BP Pulse Ox O2 Del Method 99.5 F H 78 17 86/49 L 99 Room Air 10/29/22 08:00 10/29/22 11:45 10/29/22 10:00 10/29/22 11:45 10/29/22 10:00 10/29/22 10:00 Oxygen Delivery Method Room Air Weight: 136 lb 14.407 oz Body Mass Index (BMI) 19.1 Intake & Output: Intake and Output for Last 24 Hours 10/27/22 10/28/22 10/29/22 23:59 23:59 23:59 Intake Total 1594.0 / 1594.0 1631.11 / 1631.11 Output Total 1000 / 1000 900 / 900 Balance 594.0 / 594.0 731.11 / 731.11 Lab / Micro Data 10/29/22 12:55 10/29/22 05:15 Labs: Laboratory Results - last 24 hr 10/29/22 05:15: WBC 7.0, RBC 2.84 L, Hgb 9.4 L, Hct 28.8 L, MCV 101.4 H, MCH 33.1 H, MCHC 32.6, RDW Std Deviation 47.3 H, RDW Coeff of Javier 12.8, Plt Count 163, MPV 9.8, Immature Gran % (Auto) 0.100, Neut % (Auto) 65.4, Lymph % (Auto) 22.9, [place] % (Auto) 10.4 H, Eos % (Auto) 0.9, Baso % (Auto) 0.3, Absolute Neuts (auto) 4.6, Absolute Lymphs (auto) 1.61, Nucleated RBC % 0, Sodium 141, Potassium 3.7, Chloride 115 H, Carbon Dioxide 22.0, Anion Gap 4 L, BUN 28 H, Creatinine 1.19, Estim Creat Clear Calc 43.49, Est GFR (MDRD) Af Amer 76, Est GFR (MDRD) Non-Af 63, BUN/Creatinine Ratio 23.5 H, Glucose 94, Calcium 7.0 L Radiography Diagnostic Testing: Radiology Impression Fluoroscopy 10/28/22 07:30 IMPRESSION: Intraoperative imaging provided for right common iliac artery angioplasty and stent placement. Electronically Signed: Devin Mackay MD at 14:24 EDT , Physical Exam Const alert, oriented x3 and no apparent distress General Appearance: cooperative HEENT normocephalic, head/scalp atraumatic, hearing grossly normal bilaterally, external ears normal and external nose normal Eyes EOMs intact bilaterally General Eye: normal appearance of both eyes Neck full ROM General: normal visual inspection Resp normal respiratory effort, no retractions and no use of accessory muscles Effort and Inspection: able to speak in complete sentences Cardio regular rate and regular rhythm Extremity Extremity Narrative: Stable doppler signals in BLE, palpable R DP pulse Bilateral lower extremities warm and pink Peripheral Pulses: Yes brachial pulses present and radial pulses present Skin no rashes or lesions noted Skin Narrative: Bilateral groin incision sites with vac dressing in place, maintaining seal. No swelling, redness, ecchymosis, drainage. Medial RLE incision sites covered with silver postop dressings. No swelling, redness, ecchymosis, drainage. Neuro oriented x3, CN's II-XII intact bilaterally, moves all extremities and no focal motor deficits Speech: speech normal Psych mental status grossly normal Appearance: grossly normal Attitude: calm Activity / Motor Behavior: appropriate eye contact Speech: normal speech Assessment & Plan Assessment/Plan (1) Atherosclerosis of extremity with rest pain: QUALIFIERS: Peripheral atherosclerosis location: lower extremity Peripheral atherosclerosis artery type: koi artery Laterality: right Qualified Code(s): I70.221 - Atherosclerosis of koi arteries of extremities with rest pain, right leg PLAN: He is s/p bilateral femoral endarterectomy, right to left fem-fem bypass with cadaver, right femoral-below knee popliteal bypass with in-situ GSV, R ext. iliac artery stent, bilateral sartorius flaps on 10/28/22. BLE doppler signals stable. He has had postoperative hypotension. Will leave arterial line in place as continue to wean levophed. Continue to hold home lisinopril. Hgb was 9.4 this AM and has improved to 10.5 on recheck this afternoon. Continue voiding trials. Continue to advance diet. Continue to progress with ambulation.
--- NOTE | 2022-10-29 12:46 | ADU_ITS ---
Reason For Study: S/P R to L fem-fem bypass Right Velocities Inflow R SURVEY AND MAPPING TECHNICIAN 176.2 cm/s. Prox anast 290 cm/s. Prox graft 168.3 cm/s. Mid graft 119.3 cm/s. Dist graft 103.1 cm/s. Dist anast 158.1 cm/s. Outflow L SURVEY AND MAPPING TECHNICIAN 90.4 cm/s. VL/US Art Duplex Bilat Lower Ext Interpretation Summary Patent femoral-femoral bypass with normal velocities and no evidence of stenosi s Ordering Physician: Nevin Lunsford Referring Physician: Jai Segura Performed By: Michael Hermosillo, RVT
--- NOTE | 2022-10-29 12:46 | ART_ITS ---
Reason For Study: S/P RtL fem-fem bypass, R fem-below knee popliteal with insitu GSV Procedure A bilateral lower extremity continuous wave Doppler with analog waveform analysis and ankle brachial indexes. Left Segmental Pressures Left posterior tibial artery = 64mmHg. Left dorsalis pedis artery = 62mmHg. Left digit = 42 mmHg. The left dorsalis pedis waveforms are biphasic. The left posterior tibial artery waveforms are biphasic. Right Segmental Pressures Right brachial= 102mmHg. Right posterior tibial artery = 77mmHg. Right dorsalis pedis artery = 68mmHg. Right digit = 33 mmHg. The right dorsalis pedis waveforms are biphasic. The right posterior tibial artery waveforms are biphasic. Indices The right ankle brachial index by the dorsalis pedis is 0.67. The right ankle brachial index by the posterior tibial artery is 0.75. The right digital-brachial index is 0.32. The left ankle brachial index by the dorsalis pedis is 0.61. The left ankle brachial index by the posterior tibial artery is 0.63. The left digital-brachial index is 0.41. VL/Ankle Brachial Index Interpretation Summary Right WING 0.75, moderate arterial insufficiency. Doppler/PVR waveforms of the r ight ankle moderately diminished at rest. Left WING 0.63, moderate arterial insufficiency. Doppler/PVR waveforms of the le ft ankle moderately diminished at rest. Ordering Physician: Nevin Lunsford Referring Physician: Trevon Astudillo MD Performed By: Leah Goncalves RVT
[2022-10-29 13:04] LABS: Hematocrit 31.1 % (40-54); Hemoglobin 10.5 g/dL (13.0-16.5)
--- NOTE | 2022-10-29 14:10 | CASEMGMT ---
YAYA KOEHLER Assessment: Face to Face with pt for initial transition planning/care coordination assessment. RN CM introduced self and role at [facility], pt voices understanding and consents to assessment. Pt is A/O x4 and answers all questions appropriately at this time. Pt lying in bed in no distress. Care providers, pharmacy, and demographics verified/updated. Admitting Dx: fem pop bypass PCP:Wilda Specialists:tani Segura; Tariq uro; maria del carmen Chaney [facility] Insurance: [employer] Prescription Benefit: yes LNOK: Abbie Hernándeztaylor, friend; uszanne Oh Living Arrangements: Pt lives alone in a two story home. Pt uses first floor only with no steps to enter. Pt reports he is I in ADL's and denies concerns at home. Transportation: Pt drives self and denies concerns with transportation. DME/HHC/SNF: Pt does not have DME in the home. Pt denies hx of HHC or SNF stays. Pt states no concerns with going home at time of dc. Pt states no further concerns/needs. CM to follow. Advised pt to ask CM if any further question/concerns/needs arise, voices understanding. Pt Goal: Home Plan: TBD, pending therapy Spoke with nurse who states pt has bilat disposable wound vacs to bilat groin.
[2022-10-29] MEDS: Atorvastatin Calcium 10 MG Tablet 5 MG PO (21:24)
[2022-10-30] VITALS (77 sets, daily range): BP systolic 79–169; BP diastolic 38–71; PULSE 85–121; RESP 15–24; TEMP 36.5–37; O2SAT 95–100; BMI 18.8
[2022-10-30] MEDS: 0.45% Normal Saline 1,000 ML 150 ML IV (03:41)
[2022-10-30] MEDS: Levothyroxine 88 MCG Tablet PO (05:05)
[2022-10-30] MEDS: Acetaminophen 500 MG Tablet 1000 MG PO ×3 (05:05→21:09)
[2022-10-30] MEDS: Calcium (Elemental) 500 MG Tablet PO (08:47)
[2022-10-30] MEDS: Aspirin E.C. 81 MG Tablet PO (08:47)
[2022-10-30 09:48] LABS: Hematocrit 28.3 % (40-54); Hemoglobin 9.9 g/dL (13.0-16.5)
[2022-10-30] MEDS: Cilostazol 50 MG Tablet 100 MG PO ×2 (09:53→21:09)
[2022-10-30] MEDS: Clopidogrel Bisulfate 75 MG Tablet PO (09:54)
--- NOTE | 2022-10-30 14:26 | PCM.PN.SRG ---
Subjective Subjective Patient has been weaned off of levophed this afternoon, so far maintaining good BP. Repeat Hgb was stable today. He worked with PT/OT late yesterday afternoon and did well. Voiding without difficulty and tolerating diet. He was noted to have developed a rash involving his trunk and extremities. He states the rash is not itchy, painful, or bothersome in any way. He is afebrile, no N/V, chills, myalgias. He has expected tenderness along the incision sites but otherwise denies pain in lower extremities. Objective Data Objective Data Vital Signs: Vital Signs Temp Pulse Resp BP Pulse Ox O2 Del Method 98.1 F 100 20 H 112/66 96 Room Air 10/30/22 12:00 10/30/22 14:00 10/30/22 14:00 10/30/22 14:00 10/30/22 14:00 10/30/22 14:00 Oxygen Delivery Method Room Air Weight: 134 lb 11.2 oz Body Mass Index (BMI) 18.8 Intake & Output: Intake and Output for Last 24 Hours 10/28/22 10/29/22 10/30/22 23:59 23:59 23:59 Intake Total 1594.0 / 1594.0 3569.59 / 3569.59 2045.27 / 2045.27 Output Total 1000 / 1000 3025 / 3025 1000 / 1000 Balance 594.0 / 594.0 544.59 / 544.59 1045.27 / 1045.27 Lab / Micro Data 10/30/22 09:40 10/29/22 05:15 Labs: Laboratory Results - last 24 hr 10/30/22 09:40: Hgb 9.9 L, Hct 28.3 L Radiography Diagnostic Testing: Radiology Impression Duplex Scan Lower Extremity Artery 10/29/22 12:46 Interpretation Summary Patent femoral-femoral bypass with normal velocities and no evidence of stenosis Ordering Physician: Nevin Lunsford Referring Physician: Jai Segura Performed By: Michael Hermosillo RVT Physical Exam Const alert, oriented x3 and no apparent distress General Appearance: cooperative HEENT normocephalic, head/scalp atraumatic, hearing grossly normal bilaterally, external ears normal and external nose normal Eyes EOMs intact bilaterally General Eye: normal appearance of both eyes Neck full ROM General: normal visual inspection Resp normal respiratory effort, no retractions and no use of accessory muscles Effort and Inspection: able to speak in complete sentences Cardio regular rate and regular rhythm Extremity Extremity Narrative: Stable doppler signals in BLE, palpable R DP pulse Bilateral lower extremities warm and pink Peripheral Pulses: Yes brachial pulses present and radial pulses present Skin no rashes or lesions noted Skin Narrative: Diffuse, erythematous macular/patchy rash involving the trunk and extremities. No scale/crust/erosion. Wound Narrative: Bilateral groin incision sites with vac dressing in place, maintaining seal. No swelling, redness, ecchymosis, drainage. Medial RLE incision sites covered with silver postop dressings. No swelling, redness, ecchymosis, drainage. Neuro oriented x3, CN's II-XII intact bilaterally, moves all extremities and no focal motor deficits Speech: speech normal Psych mental status grossly normal Appearance: grossly normal Attitude: calm Activity / Motor Behavior: appropriate eye contact Speech: normal speech Assessment & Plan Assessment/Plan (1) Atherosclerosis of extremity with rest pain: QUALIFIERS: Peripheral atherosclerosis location: lower extremity Peripheral atherosclerosis artery type: [place] artery Laterality: right Qualified Code(s): I70.221 - Atherosclerosis of [place] arteries of extremities with rest pain, right leg PLAN: He is s/p bilateral femoral endarterectomy, right to left fem-fem bypass with cadaver, right femoral-below knee popliteal bypass with in-situ GSV, R ext. iliac artery stent, bilateral sartorius flaps on 10/28/22. BLE doppler signals stable. BPs have improved, currently off levophed. Continue to hold lisinopril. Rash without any pruritus or associated discomfort would be somewhat atypical for drug reaction, but could be related to Plavix which was initiated following procedure. Rash is present in general areas which are in contact with sheets/gowns so perhaps related to this. He is without any systemic symptoms including fevers, chills, SOB/wheezing, GI effects. Will continue to monitor. if necessary could consider switching to Brilinta for antiplatelet. Anticipate discharge tomorrow as long as BP remain stable without need for vasopressor support.
[2022-10-30] MEDS: TITRATION PARAMETER CHANGE 1 EACH IV (14:59)
--- NOTE | 2022-10-30 18:11 | EKG12_ITS ---
Test Reason : ST Blood Pressure : / mmHG Vent. Rate : 108 BPM Atrial Rate : 108 BPM P-R Int : 132 ms QRS Dur : 086 ms QT Int : 356 ms P-R-T Axes : 065 061 062 degrees QTc Int : 477 ms Sinus tachycardia Otherwise normal ECG When compared with ECG of 22-OCT-2022 08:34, No significant change was found Confirmed by SANDY CADET, RICO ([id number]), newspaper photo editor SERGIO KNOWLES ([id number]) on 11/01/2022 9:29:44 AM Referred By: Jai Segura Confirmed By:RICO DELGADO MD
[2022-10-30 19:15] LABS: Anion Gap 5 (5-15); BUN 24 mg/dL (7-18); BUN/Creat Ratio 18.6 RATIO (10-20); Calcium,Total 8.1 mg/dL (8.5-10.1); Chloride 112 mmol/L (98-107); Creatinine, Serum 1.29 mg/dL (0.70-1.30); EST Glomerular Filtration Rate 57 mL/min (>60); Est Glom Filt Rate - Afr Amer 69 mL/min (>60); Estimated Creatinine Clearance 39.47 ml/min; Glucose 112 mg/dL (74-106); Phosphorus 1.5 mg/dL (2.5-4.9); Potassium 3.4 mmol/L (3.5-5.1); Sodium Level 139 mmol/L (136-145)
[2022-10-30] MEDS: Albumin Human 25% (100 mL) 25 GM/100 ML BAG IV ×2 (19:55→22:10)
[2022-10-30] MEDS: Atorvastatin Calcium 10 MG Tablet 5 MG PO (21:09)
[2022-10-31] VITALS (18 sets, daily range): BP systolic 98–130; BP diastolic 54–70; PULSE 89–102; RESP 17–20; TEMP 36.6–37.2; O2SAT 96–100; BMI 18.5
[2022-10-31] MEDS: Levothyroxine 88 MCG Tablet PO (05:41)
[2022-10-31 06:37] LABS: Anion Gap 6 (5-15); BUN 22 mg/dL (7-18); BUN/Creat Ratio 17.7 RATIO (10-20); Calcium,Total 8.8 mg/dL (8.5-10.1); Chloride 112 mmol/L (98-107); Creatinine, Serum 1.24 mg/dL (0.70-1.30); EST Glomerular Filtration Rate 60 mL/min (>60); Est Glom Filt Rate - Afr Amer 73 mL/min (>60); Estimated Creatinine Clearance 40.39 ml/min; Glucose 98 mg/dL (74-106); Potassium 3.6 mmol/L (3.5-5.1); Sodium Level 141 mmol/L (136-145)
[2022-10-31] MEDS: Aspirin E.C. 81 MG Tablet PO (07:33)
[2022-10-31] MEDS: Calcium (Elemental) 500 MG Tablet PO (07:33)
--- NOTE | 2022-10-31 07:44 | ADUL_ITS ---
Reason For Study: S/P RtL fem-fem bypass, R fem-below knee popliteal with insitu GSV Right Velocities Fem-Pop Bypass Prox graft, 161.3 cm/sec. Mid graft, 109.5 cm/sec. Distal graft, 127.1 cm/sec. Distal anastamosis, 129.3 cm/sec. T/P trunk, outflow, 78.8 cm/sec. DIRECTOR OF RESTAURANT OPERATIONS prox, 85.4 cm/sec. PeroA prox, 50.2 cm/sec. Hand Router Operator noted at the knee with a velocity of 70 cm/sec. Procedure Preliminary report given to Dr. Segura. Exam performed portable in ICU/CCU. VL/US Art Duplex Unilat Lower Ext Interpretation Summary Patent right femoral-popliteal bypass with normal velocities and no evidence of stenosis. Hand Router Operator with arterial flow characteristics, not visualized to communicate wi th bypass. Ordering Physician: Nevin Lunsford Referring Physician: Trevon Astudillo MD Performed By: Leah Goncalves RVT
[2022-10-31 07:54] LABS: Absolute Lymphocyte Count 1.09 X10^3/uL (0.83-4.51); Absolute Neutrophil Count 7.8 X10^3/uL (2.0-7.7); Basophil# 0.01 X10^3/uL; Basophil% 0.1 % (0-1); Eosinophil# 0.54 X10^3/uL; Eosinophils% 5.4 % (0-5); Hematocrit 28.8 % (40-54); Hemoglobin 9.7 g/dL (13.0-16.5); Lymphocyte # 1.09 X10^3/ul (0.83-4.51); Lymphocyte % 10.9 % (19-41); Mean Corp Hgb Conc 33.7 g/dL (32-36); Mean Corpuscular Hgb 33.9 pg (27.0-32.0); Mean Corpuscular Volume 100.7 fL (80-94); Mean Platelet Vol. 9.7 fl (6.2-12.0); Monocyte# 0.55 X10^3/uL; Monocyte% 5.5 % (0-10); NRBC Flagged by Analyzer 0 % (0-5); Neutrophil # 7.78 X10^3/uL (2.7-7.7); Neutrophil % 77.8 % (47-70); Platelet Count 160 K/mm3 (150-450); RBC Distribution Width CV 12.7 % (11.6-14.6); Red Blood Count 2.86 M/mm3 (4.6-6.2)
[2022-10-31] MEDS: Cilostazol 50 MG Tablet 100 MG PO (10:45)
[2022-10-31] MEDS: Clopidogrel Bisulfate 75 MG Tablet PO (10:45)
[2022-10-31] MEDS: Loratadine 10 MG Tablet PO (10:46)
[2022-10-31] MEDS: Rivaroxaban 2.5 MG Tablet PO (11:01)
--- NOTE | 2022-10-31 11:31 | PCM.DC.SUM ---
Providers Date of Admission: 10/28/22 Date of Discharge: 10/31/22 Primary Care Physician: Dr. Eric Astudillo MD Reason For Visit: FEM-POP BYPASS...... Diagnosis Discharge Diagnosis (1) Atherosclerosis of extremity with rest pain: Status: Chronic Code(s): I70.229 - Atherosclerosis of [place] arteries of extremities with rest pain, unspecified extremity Qualifiers: Laterality: right Peripheral atherosclerosis artery type: [place] artery Peripheral atherosclerosis location: lower extremity Qualified Code(s): I70.221 - Atherosclerosis of [place] arteries of extremities with rest pain, right leg Medications at Discharge Home Medications aspirin 81 mg tablet,delayed release (Adult Low Dose Aspirin) 81 mg PO DAILY HEART HEALTH 12/22/14 levothyroxine 75 mcg tablet 88 mcg PO DAILY THYROID 12/22/14 prednisone 5 mg tablet 2.5 mg PO DAILY PRN ACHES 12/22/14 simvastatin 10 mg tablet 10 mg PO QHS CHOLESTEROL 12/22/14 lisinopril 20 mg tablet 20 mg PO BID BLOOD PRESSURE 01/24/15 calcium carbonate 500 mg calcium (1,250 mg) tablet 500 mg PO DAILY@0800 SUPPLEMENT 12/03/18 clopidogrel 75 mg tablet 75 mg PO DAILY #30 tabs 10/31/22 oxycodone 5 mg tablet 5 mg PO Q8H PRN PRN Pain Score 4-10 5 days #15 tabs 10/31/22 rivaroxaban 2.5 mg tablet (Xarelto) 2.5 mg PO BID #60 tabs 10/31/22 Hospital Course Procedures - (fem-fem bypass with cadaver, fem-pop bypass with insitu GSV) Summary of Care Provided Hospital Course: On 10/29/22, patient underwent right to left femoral-femoral bypass with cadaver graft, right femoral to below-knee popliteal bypass with insitu GSV, bilateral femoral endarterectomy, bilateral sartorius flaps, right external iliac artery stent. Following surgery he was routinely admitted to the ICU for hemodynamic monitoring. He was hypotensive following surgery requiring intermittent vasopressor support but was able to be weaned off. At time of discharge, his blood pressures had been stable and he was without any orthostatic symptoms, CP, SOB. On POD#2, he was noted to have developed a diffuse patchy erythematous rash involving his trunk and extremities; the rash was not pruritic, painful and with no associated N/V, F/C, respiratory or GI symptoms. The rash was monitored and improved on POD#3 and still with no associated symptoms. Will continue to monitor on outpatient basis. He has been tolerating full diet, voiding without difficulty, and his pain has been well controlled on PO regimen. He has done well with ambulation. He was initiated on Plavix and Xarelto 2.5mg in addition to his ASA following the procedure. He is discharged in medically stable condition. Will follow-up in office in 2 weeks. Physical Exam Const alert, oriented x3 and no apparent distress General Appearance: cooperative HEENT normocephalic, head/scalp atraumatic, hearing grossly normal bilaterally, external ears normal and external nose normal Eyes EOMs intact bilaterally General Eye: normal appearance of both eyes Neck full ROM General: normal visual inspection Resp normal respiratory effort, no retractions and no use of accessory muscles Effort and Inspection: able to speak in complete sentences Cardio regular rate and regular rhythm Extremity Extremity Narrative: Stable doppler signals in BLE, palpable R DP pulse Bilateral lower extremities warm and pink Peripheral Pulses: Yes brachial pulses present and radial pulses present Skin no rashes or lesions noted Skin Narrative: Diffuse, erythematous macular/patchy rash improved from yesterday. No scale/crust/erosion. Wound Narrative: Bilateral groin incision sites with vac dressing in place, maintaining seal. No swelling, redness, ecchymosis, drainage. Medial RLE incision sites with surgical glue intact, no dehiscence. No swelling, redness, ecchymosis, drainage. Neuro oriented x3, CN's II-XII intact bilaterally, moves all extremities and no focal motor deficits Speech: speech normal Psych mental status grossly normal Appearance: grossly normal Attitude: calm Activity / Motor Behavior: appropriate eye contact Speech: normal speech Weight / BMI Weight Weight: 132 lb 8 oz Body Mass Index (BMI) 18.5 ABG / Lab / Microbiology Data 10/31/22 04:05 10/31/22 04:05 Laboratory: Laboratory Results - last 24 hr 10/30/22 18:36: Sodium 139, Potassium 3.4 L, Chloride 112 H, Carbon Dioxide 22.0, Anion Gap 5, BUN 24 H, Creatinine 1.29, Estim Creat Clear Calc 39.47, Est GFR (MDRD) Af Amer 69, Est GFR (MDRD) Non-Af 57 L, BUN/Creatinine Ratio 18.6, Glucose 112 H, Calcium 8.1 L, Phosphorus 1.5 L, Magnesium 2.0 10/31/22 04:05: WBC 10.0, RBC 2.86 L, Hgb 9.7 L, Hct 28.8 L, MCV 100.7 H, MCH 33.9 H, MCHC 33.7, RDW Std Deviation 47.0 H, RDW Coeff of Javier 12.7, Plt Count 160, MPV 9.7, Immature Gran % (Auto) 0.300, Neut % (Auto) 77.8 H, Lymph % (Auto) 10.9 L, Falls % (Auto) 5.5, Eos % (Auto) 5.4 H, Baso % (Auto) 0.1, Absolute Neuts (auto) 7.8 H, Absolute Lymphs (auto) 1.09, Nucleated RBC % 0, Sodium 141, Potassium 3.6, Chloride 112 H, Carbon Dioxide 23.0, Anion Gap 6, BUN 22 H, Creatinine 1.24, Estim Creat Clear Calc 40.39, Est GFR (MDRD) Af Amer 73, Est GFR (MDRD) Non-Af 60, BUN/Creatinine Ratio 17.7, Glucose 98, Calcium 8.8 Radiography Diagnostic Testing: Radiology Impression Ankle Brachial Index 10/29/22 12:46 Interpretation Summary Right WING 0.75, moderate arterial insufficiency. Doppler/PVR waveforms of the right ankle moderately diminished at rest. Left WING 0.63, moderate arterial insufficiency. Doppler/PVR waveforms of the left ankle moderately diminished at rest. Ordering Physician: Nevin Lunsford Referring Physician: Trevon Astudillo MD Performed By: Leah Goncalves RVT D/C Instructions Discharge Diet: No restrictions Weight Bearing Status: Weight bearing as tolerated Lifting Restricted to (Lbs): 20 Lifting Restrictions: Do not lift greater than 20 pounds for 3 weeks Call your doctor if your incision/area has: Sudden Increased Bleeding, Increased Pain/ Swelling and Foul Smelling Discharge Call your doctor if you observe: Fever of 101 or Higher and Uncontrolled pain Additional Instructions: You may remove the vacuum dressings covering the incisions in your groin on Friday (11/04/22). Remove these as instructed, if you are unsure or have any questions, please call the office at [phone] for assistance. The incisions along your right leg are covered with surgical glue which protects them. The glue will peel/flake off on its own over the next few weeks, please do not pick at it. You may shower, it is okay for soap and water to rinse over the incision sites. Pat dry after. Do not submerge the incision sites in water, such as for a bath or swimming, for 3 weeks. Do not lift greater than 20 pounds for 3 weeks. Walk as much as tolerated. I have prescribed a pain medication, oxycodone 5 mg, to be taken as needed for pain. While you are taking this medication you should not drive. You may also take tylenol as needed. We have started you on 2 new medications: Plavix 75mg to be taken once daily and Xarelto 2.5mg to be taken twice daily. You should also continue to take Aspirin 81mg daily. Please take these medications as prescribed, call the office with any side effects or concerns. Follow-up in the office in 2 weeks, our office will call you to make an appointment. Meaningful Use Info Meaningful Use Diagnoses (Choose all that apply): None applicable Discharge Plan Admission Admit Date/Time: 10/28/22 05:25 Primary Reason for Your Visit: R to L femoral-femoral bypass, R femoral-below knee popliteal bypass Attending Provider: Jai Segura Primary Care Provider: Eric Astudillo Discharge Orders/Prescriptions Prescriptions: New clopidogrel 75 mg Tablet 75 mg PO DAILY Qty: 30 5RF oxycodone 5 mg Tablet 5 mg PO Q8H PRN PRN (Reason: Pain Score 4-10) 5 Days Qty: 15 0RF Xarelto 2.5 mg Tablet 2.5 mg PO BID Qty: 60 5RF Continued simvastatin 10 MG tablet 10 mg PO QHS prednisone 5 MG tablet 2.5 mg PO DAILY PRN (Reason: ACHES) aspirin [Adult Low Dose Aspirin] 81 MG tablet,delayed release (DR/EC) 81 mg PO DAILY Rx Instructions: will stop 10 days prior levothyroxine 75 MCG tablet 88 mcg PO DAILY lisinopril 20 MG tablet 20 mg PO BID calcium carbonate 500 MG tablet 500 mg PO DAILY@0800 Discontinued cilostazol 100 mg tablet 100 mg PO BID Qty: 120 0RF Referrals / Follow Up: Eric Astudillo MD [Primary Care Provider] - Disposition Disposition (needs filled in before D/C Order can be placed): Home, Self Care
--- NOTE | 2022-10-31 12:15 | CASEMGMT ---
Addendum entered by Arelis Heller 10/31/22 13:55: TC to [facility] pharmacy, pt cost of xarelto is $517.38. TC to pt, he states this is affordable to him and he would like the meds delivered to his room. He will pay by credit card. TC back to retail pharmacy, they will deliver to room. ICU nurse aware pt ready for dc once meds delivered. Original Note: YAYA KOEHLER into pt room, pt lying in bed with friend at bedside. Pt states he feels he did well with therapy. He declines any therapy needs at home or nursing. Pt states he will take his wound vacs off in a week. He has planned ahead for surgery and has groceries, etc bought up. Pt has assistance should he need it. TC to [facility], pt rx is not ready yet. Pt would like them delivered to the room. YAYA KOEHLER to call back to check cost. Pt ready for dc.
== END 2022-10-31 14:45 | disposition home or self-care (01) | DRG 253 ==
LOC: ACINP 05:26 → ICU 16:12
PROVIDERS: Anesthesiology; Admitting Provider Surgery Trauma Surgery; PCP Family Medicine; Referring Provider Surgery Trauma Surgery; Visit Provider Surgery Trauma Surgery
PROC: 041K0KJ Bypass Right Femoral Artery to Left Femoral Artery with Nonautologous Tissue Substitute, Open Approach (ICD-10-PCS; principal; 2022-10-28 07:00)
DX: I70.221 Atherosclerosis of native arteries of extremities with rest pain, right leg (principal); I70.92 Chronic total occlusion of artery of the extremities; F17.200 Nicotine dependence, unspecified, uncomplicated; I95.81 Postprocedural hypotension; Z95.828 Presence of other vascular implants and grafts
CPT/HCPCS: 36415; 76000; 80048; 80076; 83735; 84100; 84443; 85014; 85018; 85025; 85027; 85610; 85730; 86850; 86900; 86901; 88304; 88311; 93005; 93922; 93925; 93926; 94668; 94762; 97162; 97166; 97530; 97802; 99252; 99406; A4648; C1769; C1874; C1894; J7040; J7050; J7120; P9047; A4216; C1725; G0463; J2405

== ENCOUNTER → 2022-11-21 | Outpatient (CLI) | payer MEDICARE, OTHER, SELFPAY ==
--- NOTE | 2022-11-21 09:02 | ADUL_ITS ---
Reason For Study: S/P fem-fem and R fem-pop bypass, atherosclerosis Right Velocities R to L Fem-Fem bypass. Inflow R INTENSIVIST 122.2 cm/s Prox Anast 242.1 cm/s Prox Graft 72.2 cm/s Mid Graft 76.6 cm/s Dist Graft 67.0 cm/s Dist Anast 99.0 cm/s Outflow L INTENSIVIST 78.1 cm/s R Fem-Pop bypass Inflow R INTENSIVIST 125.8 cm/s Prox Anast 66.7 cm/s Prox Graft 76.5 cm/s Mid Graft 65.4 cm/s Dist Graft 64.2 cm/s Dist Anast 77.7 cm/s Outflow 45.8 cm/s Small branch at the knee with a velocity of 64.2 cm/s. VL/US Art Duplex Unilat Lower Ext Interpretation Summary Patent femoral-femoral bypass with mildly elevated velocities at proximal anast omosis and preserved waveforms/velocities throughout graft. Patent right fem-pop bypass with normal velocities and no evidence of stenosis. Blood Donor Unit Assistant branch at knee originating from bypass. Ordering Physician: Nevin Lunsford Performed By: Michael Hermosillo RVT
--- NOTE | 2022-11-21 09:02 | ART_ITS ---
Reason For Study: atherosclerosis Procedure A bilateral lower extremity continuous wave Doppler with analog waveform analysis and ankle brachial indexes. Left Segmental Pressures Left brachial= 120mmHg. Left posterior tibial artery = 94mmHg. Left dorsalis pedis artery = 86mmHg. The left dorsalis pedis waveforms are biphasic. The left posterior tibial artery waveforms are biphasic. Right Segmental Pressures Right brachial= 108mmHg. Right posterior tibial artery = 118mmHg. Right dorsalis pedis artery = 120mmHg. The right dorsalis pedis waveforms are triphasic. The right posterior tibial artery waveforms are triphasic. Indices The right ankle brachial index by the posterior tibial artery is .98. The right ankle brachial index by the dorsalis pedis is 1.0. The left ankle brachial index by the posterior tibial artery is .78. The left ankle brachial index by the dorsalis pedis is .72. VL/Ankle Brachial Index Interpretation Summary Right WING 1, normal. Doppler/PVR waveforms of the right ankle normal at rest. Left WING 0.78, moderate arterial insufficiency. Doppler/PVR waveforms of the le ft ankle moderately diminished at rest. Ordering Physician: Nevin Lunsford Performed By: Michael Hermosillo RVT
== END | disposition home or self-care (01) ==
LOC: CVS 09:01
PROVIDERS: PCP Family Medicine; Referring Provider Physician Assistant; Visit Provider Physician Assistant
DX: I70.221 Atherosclerosis of native arteries of extremities with rest pain, right leg (principal)
CPT/HCPCS: 93922; 93926

== ENCOUNTER → 2022-11-26 | Outpatient (CLI) | payer MEDICARE, OTHER, SELFPAY ==
[2022-11-26 15:56] LABS: PSA,Total- Diagnostic < 0.01 ng/mL (0.0-4.0)
== END | disposition home or self-care (01) ==
LOC: MFPLAB 11:33
PROVIDERS: PCP Family Medicine; Visit Provider Urology
DX: C61 Malignant neoplasm of prostate (principal)
CPT/HCPCS: 36415; 84153

== ENCOUNTER → 2022-12-24 | Outpatient (CLI) | payer MEDICARE, OTHER, SELFPAY ==
[2022-12-24 10:21] LABS: Hematocrit 43.1 % (40-54); Hemoglobin 14.1 g/dL (13.0-16.5); Mean Corp Hgb Conc 32.7 g/dL (32-36); Mean Corpuscular Hgb 33.9 pg (27.0-32.0); Mean Corpuscular Volume 103.6 fL (80-94); Mean Platelet Vol. 9.8 fl (6.2-12.0); Platelet Count 185 K/mm3 (150-450); RBC Distribution Width CV 13.2 % (11.6-14.6); RBC Distribution Width SD 50.9 fl (35.1-43.9); Red Blood Count 4.16 M/mm3 (4.6-6.2); White Blood Count 7.2 K/mm3 (4.4-11.0)
[2022-12-24 10:50] LABS: PTHIN 36.4 pg/mL (18.4-80.1)
[2022-12-24 11:12] LABS: Anion Gap 5 (5-15); BUN 23 mg/dL (7-18); BUN/Creat Ratio 16.8 RATIO (10-20); Calcium,Total 9.9 mg/dL (8.5-10.1); Chloride 108 mmol/L (98-107); Cholesterol 172 mg/dL (200); Creatinine, Serum 1.37 mg/dL (0.70-1.30); EST Glomerular Filtration Rate 53 mL/min (>60); Est Glom Filt Rate - Afr Amer 64 mL/min (>60); Glucose 103 mg/dL (74-106); High Density Lipoprotein 57 mg/dL; Potassium 4.4 mmol/L (3.5-5.1); Sodium Level 140 mmol/L (136-145); Thyroid Stim Hormone (TSH) 5.12 uIU/mL (0.358-3.74); Triglycerides 105 mg/dL; Very Low Density Lipoprotein 21 mg/dL (5-40)
== END | disposition home or self-care (01) ==
LOC: MFPLAB 09:08
PROVIDERS: PCP Family Medicine; Visit Provider Family Medicine
DX: I73.9 Peripheral vascular disease, unspecified (principal); N18.30 Chronic kidney disease, stage 3 unspecified; E03.9 Hypothyroidism, unspecified
CPT/HCPCS: 36415; 80048; 80061; 83970; 84443; 85027

== ENCOUNTER 2022-12-31 09:50 | Day surgery (SDC) | payer MEDICARE, OTHER, SELFPAY ==
[2022-12-31] VITALS (17 sets, daily range): BP systolic 70–117; BP diastolic 41–83; PULSE 70–81; RESP 15–16; TEMP 36.3–36.5; O2SAT 98–100; BMI 17.2
[2022-12-31] MEDS: 0.9% Normal Saline (500mL Bag) 500 ML 15 ML IV (10:19)
--- NOTE | 2022-12-31 11:49 | PCM.HP.BLA ---
History and Physical Allergies No Known Allergies Allergy (Verified 12/05/22 15:11) Medications aspirin 81 mg tablet,delayed release (Adult Low Dose Aspirin) 81 mg PO DAILY HEART HEALTH 12/22/14 [History Confirmed 12/05/22] levothyroxine 75 mcg tablet 88 mcg PO DAILY THYROID 12/22/14 [History Confirmed 12/05/22] prednisone 5 mg tablet 2.5 mg PO DAILY PRN ACHES 12/22/14 [History Confirmed 12/05/22] simvastatin 10 mg tablet 10 mg PO QHS CHOLESTEROL 12/22/14 [History Confirmed 12/05/22] lisinopril 20 mg tablet 20 mg PO BID BLOOD PRESSURE 01/24/15 [History Confirmed 12/05/22] calcium carbonate 500 mg calcium (1,250 mg) tablet 500 mg PO DAILY@0800 SUPPLEMENT 12/03/18 [History Confirmed 12/05/22] rivaroxaban 2.5 mg tablet (Xarelto) 2.5 mg PO BID #60 tabs 10/31/22 [Rx Confirmed 12/05/22] clopidogrel 75 mg tablet 75 mg PO DAILY #30 tabs 11/14/22 [Rx Confirmed 12/05/22] Subjective Details: Doing well since surgery. No claudication, mild RLE edema, no wound concerns. Had repeat duplex/WING that revealed fistula between graft and deep system more visible since last study. WING has improved. 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 Jai Segura MD) Alcohol use Bladder disease Cancer Easy bruising History of echocardiogram History of pain when walking History of stress test History of ulceration Hypertension Leg cramps Marijuana use Prostate disease Smoker Thyroid disease Wears glasses Surgical History (Updated 11/08/22 @ 00:02 by Background Joycelyn) History of robot-assisted laparoscopic radical prostatectomy History of tonsillectomy History of transurethral resection of bladder tumor (TURBT) Hx of colonoscopy S/P femoral-femoral bypass surgery Family History Mother CancerBrother CancerFather Cancer Social History Smoking Status: Current every day smoker tobacco type: cigarettes Assessment and Plan (No Qualifiers) Assessment and Plan (1) AV fistula: Status: Chronic Plan: -ligate right lower extremity fistula
[2022-12-31] MEDS: Cefazolin 2 GM in 0.9% Normal Saline (100mL Bag) 100 ML IV (12:04)
[2022-12-31] MEDS: Bupivacaine 0.25% 30 ML Vial (12:36)
[2022-12-31] MEDS: Lidocaine 1% (30 ml sdv) 30 ML Vial (12:36)
[2022-12-31] MEDS: Heparin Injection (Vial) 5,000 UNIT/ML VIAL 5000 UNIT (12:44)
--- NOTE | 2022-12-31 13:03 | DCINST_ITS ---
Discharge Instructions Diet Discharge Diet: No restrictions Activity May shower in (days): 1 Weight Bearing Status: Weight bearing as tolerated Dressing / Incision Call your doctor if your incision/area has: Sudden Increased Bleeding, Increased Pain/ Swelling, Increased Redness and Foul Smelling Discharge Call your doctor if you observe: Fever of 101 or Higher Remove Dressing in: 1 day Cleanse incision/area with: Soap & Water Follow Up Care Test Results: Test results from this visit will be discussed in further detail at your follow- up appointment, if applicable. Discharge Plan Admission Attending Provider: Jai Segura Primary Care Provider: Eric Astudillo Discharge Orders/Prescriptions Prescriptions: Continued clopidogrel 75 mg tablet 75 mg PO DAILY Qty: 30 5RF simvastatin 10 MG tablet 10 mg PO QHS prednisone 5 MG tablet 2.5 mg PO DAILY PRN (Reason: ACHES) aspirin [Adult Low Dose Aspirin] 81 MG tablet,delayed release (DR/EC) 81 mg PO DAILY Rx Instructions: will stop 10 days prior levothyroxine 75 MCG tablet 88 mcg PO DAILY lisinopril 20 MG tablet 20 mg PO BID calcium carbonate 500 MG tablet 500 mg PO DAILY@0800 Xarelto 2.5 mg Tablet 2.5 mg PO BID Qty: 60 5RF Referrals / Follow Up: Eric Astudillo MD [Primary Care Provider] - Disposition Disposition (needs filled in before D/C Order can be placed): Home, Self Care
--- NOTE | 2022-12-31 13:06 | OP.PCM_ITS ---
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 Postoperative imaging suggested a retained fistula adjacent to the knee that is persisted over subsequent surveillance duplexes. He is taken now for exploration with plans to ligate the branch to avoid any threat to the graft. Description of procedure: Upon obtaining form consent and verification correct patient procedure site patient was taken to the operating where he was positioned prepped and draped in usual fashion. Time was performed and deep sedation was administered by anesthesia. Ultrasound used to assess the bypass graft and there appeared to be the branch of concern medial to the knee. Skin anesthetized 1% lidocaine and incision made with 15 blade. Bovie left cautery was dissect down through subcutaneous tissue and self-retaining retractors put in position. The bypass was then visualized and sharp dissection used to dissect free proximal and distal with generous mobilization of the conduit both proximal and distal to the incision. There appeared to be one small branch on the deep aspect of the bypass which was ligated with medium clips and then divided. The remainder of the bypass conduit within the surgical field was mobilized circumferentially with no other possible branches visualized. The vessel was assessed with Doppler and found to be patent with appropriate signal and there was no adjacent Doppler signal proximal to her distal to the surgical field that suggested a fistula that was missed. Incision was inspected hemostasis and then closed with 3-0 Vicryl, 4 Monocryl, Dermabond. Patient was then awake from sedation taken to the recovery room with dissipated discharged home.
== END 2022-12-31 14:50 | disposition home or self-care (01) ==
LOC: SDC 09:54 → AC 09:55
PROVIDERS: PCP Family Medicine; Referring Provider Surgery Trauma Surgery; Visit Provider Surgery Trauma Surgery
PROC: (CPT 37607; principal; 2022-12-31 11:15)
DX: I77.0 Arteriovenous fistula, acquired (principal); E07.9 Disorder of thyroid, unspecified; F17.210 Nicotine dependence, cigarettes, uncomplicated; I10 Essential (primary) hypertension
CPT/HCPCS: 37607; 86850; 86900; 86901; A4648; J7040; J2405

== ENCOUNTER → 2023-01-15 | Outpatient (CLI) | payer MEDICARE, OTHER, SELFPAY ==
[2023-01-15 16:51] LABS: Thyroid Stim Hormone (TSH) 2.29 uIU/mL (0.358-3.74)
== END | disposition home or self-care (01) ==
LOC: LAB 14:51
PROVIDERS: PCP Family Medicine; Referring Provider Family Medicine; Visit Provider Family Medicine
DX: E03.9 Hypothyroidism, unspecified (principal)
CPT/HCPCS: 36415; 84443

== ENCOUNTER → 2023-01-20 | Outpatient (CLI) | payer MEDICARE, OTHER, SELFPAY ==
--- NOTE | 2023-01-20 09:48 | ADUL_ITS ---
Reason For Study: S/P fem-fem and R fem-pop bypass, atherosclerosis Right Velocities R to L Fem-Fem bypass. Inflow R EIA, 238.9 cm/sec. Prox Anast, 187.3 cm/sec. Prox Graft, 100.8 cm/sec. Mid Graft, 65.6 cm/sec. Dist Graft, 72.9 cm/sec. Dist Anast, 100.3 cm/sec. Outflow L MAT[employer]S RECY[employer]ER, 82 cm/sec. R Fem-Pop bypass Inflow R SFA, 120.4 cm/sec. Prox Anast, 113.9 cm/sec. Prox Graft, 87.9 cm/sec. Mid Graft, 87.1 cm/sec. Dist Graft, 88.3 cm/sec. Dist Anast, 80.9 cm/sec. Outflow, 46.5 cm/sec. Post. Tibial Artery, prox = 63.7 cm./sec. Post. Tibial Artery, mid = 57.6 cm./sec. Post. Tibial Artery, dist = 47.8 cm./sec. Peroneal Artery, prox = 44.1 cm./sec. Peroneal Artery, mid = 41.6 cm./sec. Peroneal Artery,dist = 24.5 cm./sec. Ant. Tibial Artery, prox = 64.1 cm./sec. Ant. Tibial Artery, mid = 50 cm./sec. Ant. Tibial Artery, dist = 50.9 cm./sec. Procedure Exam performed in department. /US Art Duplex Unilat Lower Ext Interpretation Summary Right femoral-popliteal bypass patent with normal velocities and no evidence of stenosis. No visualization of previously identified fistula. Ordering Physician: Nevin Mistry Referring Physician: Trevon Astudillo MD Performed By: Leah Goncalves RVT
--- NOTE | 2023-01-20 09:48 | ART_ITS ---
Reason For Study: S/P fem-fem and R fem-pop bypass, atherosclerosis Procedure A bilateral lower extremity continuous wave Doppler with analog waveform analysis and ankle brachial indexes. Left Segmental Pressures Left brachial= 130mmHg. Left posterior tibial artery = 100mmHg. Left dorsalis pedis artery = 95mmHg. The left dorsalis pedis waveforms are biphasic. The left posterior tibial artery waveforms are biphasic. Right Segmental Pressures Right brachial= 113mmHg. Right posterior tibial artery = 142mmHg. Right dorsalis pedis artery = 148mmHg. The right dorsalis pedis waveforms are triphasic. The right posterior tibial artery waveforms are triphasic. Indices The right ankle brachial index by the dorsalis pedis is 1.14. The right ankle brachial index by the posterior tibial artery is 1.09. The left ankle brachial index by the dorsalis pedis is 0.73. The left ankle brachial index by the posterior tibial artery is 0.77. VL/Ankle Brachial Index Interpretation Summary Right WING 1.14, normal. Doppler/PVR waveforms of the right ankle normal at rest . Left WING 0.77, moderate arterial insufficiency. Doppler/PVR waveforms of the le ft ankle moderately diminished at rest. Ordering Physician: Nevin Mistry Referring Physician: Trevon Astudillo MD Performed By: Leah Goncalves RVT
== END | disposition home or self-care (01) ==
LOC: CVS 09:47
PROVIDERS: PCP Family Medicine; Referring Provider Physician Assistant; Visit Provider Physician Assistant
DX: I70.221 Atherosclerosis of native arteries of extremities with rest pain, right leg (principal); Z48.812 Encounter for surgical aftercare following surgery on the circulatory system; Z95.828 Presence of other vascular implants and grafts
CPT/HCPCS: 93922; 93926

== ENCOUNTER → 2023-06-12 | Outpatient (CLI) | payer MEDICARE, OTHER, SELFPAY ==
--- NOTE | 2023-06-12 09:00 | ART_ITS ---
Reason For Study: S/P fem-fem and R fem-pop bypass, atherosclerosis Procedure A bilateral lower extremity continuous wave Doppler with analog waveform analysis and ankle brachial indexes. Left Segmental Pressures Left brachial= 123mmHg. Left posterior tibial artery = 109mmHg. Left dorsalis pedis artery = 102mmHg. The left dorsalis pedis waveforms are biphasic. The left posterior tibial artery waveforms are biphasic. Right Segmental Pressures Right brachial= 124mmHg. Right posterior tibial artery = 134mmHg. Right dorsalis pedis artery = 125mmHg. The right dorsalis pedis waveforms are triphasic. The right posterior tibial artery waveforms are triphasic. Indices The right ankle brachial index by the dorsalis pedis is 1.01. The right ankle brachial index by the posterior tibial artery is 1.08. The left ankle brachial index by the dorsalis pedis is 0.82. The left ankle brachial index by the posterior tibial artery is 0.88. VL/Ankle Brachial Index Interpretation Summary Right WING 1.08, normal. Doppler/PVR waveforms of the right ankle normal at rest . Left WING 0.88, moderate arterial insufficiency. Doppler/PVR waveforms of the le ft ankle moderately diminished at rest. Ordering Physician: Nevin Mistry Referring Physician: Trevon Astudillo MD Performed By: Leah Goncalves RVT
--- NOTE | 2023-06-12 09:00 | ADU_ITS ---
Reason For Study: S/P fem-fem and R fem-pop bypass, atherosclerosis Right Velocities Left Velocities R Fem-Pop bypass R to L Fem-Fem bypass. Inflow R SFA, 98.4 cm/sec. Inflow R [employer]GER, 152.7 cm/sec. Prox Anast, 103.9 cm/sec. Prox Anast, 235 cm/sec. Prox Graft, 69.2 cm/sec. Prox Graft, 98.2 cm/sec. Mid Graft, 87.5 cm/sec. Mid Graft, 51.5 cm/sec. Dist Graft, 53.9 cm/sec. Dist Graft, 77.2 cm/sec. Dist Anast, 55.1 cm/sec. Dist Anast, 80.9 cm/sec. Outflow, 87.5 cm/sec. Outflow L SFA, 82 cm/sec. Profunda Femoral Artery = 60 cm./sec. Supf. Femoral Artery, mid = 96.6 cm./sec. Post. Tibial Artery, prox = 43.9 cm./sec. Supf. Femoral Artery, dist = 91.1 cm./sec. Post. Tibial Artery, mid = 58.1 cm./sec. Popliteal Artery, proximal, = 76.5 cm./sec. Post. Tibial Artery, dist = 37.3 cm./sec. Popliteal Artery, mid = 357 cm./sec. Peroneal Artery, prox = 37.3 cm./sec. Popliteal Artery, distal = 70 cm./sec. Peroneal Artery, mid = 35.1 cm./sec. Post. Tibial Artery, prox = 33.9 cm./sec. Peroneal Artery,dist = 34 cm./sec. Post Tibial Artery, mid = 33.1 cm./sec. Ant. Tibial Artery, prox = 48.3 cm./sec. Post Tibial Artery, dist. = 30.4 cm./sec. Ant. Tibial Artery, mid = 50.4 cm./sec. Peroneal Artery, prox = 35.5 cm./sec. Ant. Tibial Artery, dist = 31.8 cm./sec. Peroneal Artery, mid = 24.1 cm./sec. Peroneal Artery,dist. = 15.6 cm./sec. Ant.Tibial Artery, prox = 35.5 cm./sec. Ant Tibial Artery, mid = 29.8 cm./sec. Ant. Tibial Artery, distal = 24.1 cm./sec. Procedure Exam performed in department. VL/US Art Duplex Bilat Lower Ext Interpretation Summary Patent right femoral-popliteal bypass with normal velocities and no evidence of stenosis. Patent femoral-femoral bypass with normal velocities and no evidence of stenosi s. Left popliteal artery with >50% stenosis Ordering Physician: Nevin Mistry Referring Physician: Trevon Astudillo MD Performed By: Leah Goncalves RVT
== END | disposition home or self-care (01) ==
LOC: CVS 08:58
PROVIDERS: PCP Family Medicine; Referring Provider Physician Assistant; Visit Provider Physician Assistant
DX: Z48.812 Encounter for surgical aftercare following surgery on the circulatory system (principal); Z95.828 Presence of other vascular implants and grafts
CPT/HCPCS: 93922; 93925

== ENCOUNTER → 2023-06-17 | Outpatient (CLI) | payer MEDICARE, OTHER, SELFPAY ==
[2023-06-17 15:34] LABS: Hematocrit 46.9 % (40-54); Hemoglobin 15.4 g/dL (13.0-16.5); Mean Corp Hgb Conc 32.8 g/dL (32-36); Mean Corpuscular Volume 100.4 fL (80-94); Platelet Count 204 K/mm3 (150-450); RBC Distribution Width CV 13.2 % (11.6-14.6); RBC Distribution Width SD 48.7 fl (35.1-43.9); Red Blood Count 4.67 M/mm3 (4.6-6.2); White Blood Count 7.2 K/mm3 (4.4-11.0)
[2023-06-17 18:34] LABS: Vitamin D,25 Hydroxy 51.1 ng/mL
[2023-06-17 19:43] LABS: Anion Gap 8 (5-15); BUN 38 mg/dL (7-18); BUN/Creat Ratio 24.2 RATIO (10-20); Chloride 109 mmol/L (98-107); Creatinine, Serum 1.57 mg/dL (0.70-1.30); EST Glomerular Filtration Rate 45 mL/min (>60); Est Glom Filt Rate - Afr Amer 55 mL/min (>60); Glucose 86 mg/dL (74-106); Iron 112 ug/dL (65-175); Potassium 4.5 mmol/L (3.5-5.1); Sodium Level 139 mmol/L (136-145); T4 Free Direct 1.18 ng/dL (0.76-1.46); Thyroid Stim Hormone (TSH) 1.05 uIU/mL (0.358-3.74)
== END | disposition home or self-care (01) ==
LOC: MFPLAB 10:45
PROVIDERS: PCP Family Medicine; Visit Provider Family Medicine
DX: I12.9 Hypertensive chronic kidney disease with stage 1 through stage 4 chronic kidney disease, or unspecified chronic kidney disease (principal); N18.30 Chronic kidney disease, stage 3 unspecified
CPT/HCPCS: 36415; 80048; 82306; 83540; 84439; 84443; 85027

== ENCOUNTER → 2023-06-27 | Outpatient (CLI) | payer MEDICARE, OTHER, SELFPAY ==
[2023-06-27 11:25] LABS: Albumin, Serum 3.8 g/dL (3.2-5.0); BUN 29 mg/dL (7-18); BUN/Creat Ratio 19.3 RATIO (10-20); Calcium,Total 9.5 mg/dL (8.5-10.1); Chloride 108 mmol/L (98-107); EST Glomerular Filtration Rate 48 mL/min (>60); Est Glom Filt Rate - Afr Amer 58 mL/min (>60); Glucose 111 mg/dL (74-106); Phosphorus 2.9 mg/dL (2.5-4.9); Potassium 4.3 mmol/L (3.5-5.1); Sodium Level 138 mmol/L (136-145)
== END | disposition home or self-care (01) ==
LOC: LAB 10:11
PROVIDERS: PCP Family Medicine; Referring Provider Internal Medicine Nephrology; Visit Provider Internal Medicine Nephrology
DX: N18.31 Chronic kidney disease, stage 3a (principal)
CPT/HCPCS: 36415; 80069

== ENCOUNTER → 2023-12-03 | Outpatient (CLI) | payer MEDICARE, OTHER, SELFPAY ==
[2023-12-03 13:20] LABS: PSA,Total- Diagnostic 0.02 ng/mL (0.0-4.0)
== END | disposition home or self-care (01) ==
LOC: MFPLAB 10:06
PROVIDERS: PCP Family Medicine; Visit Provider Urology
DX: C61 Malignant neoplasm of prostate (principal)
CPT/HCPCS: 36415; 84153

== ENCOUNTER → 2023-12-15 | Outpatient (CLI) | payer MEDICARE, OTHER, SELFPAY ==
--- NOTE | 2023-12-15 09:55 | ART_ITS ---
Reason For Study: S/P Rt Fem-Pop Bypass Procedure A bilateral lower extremity continuous wave Doppler with analog waveform analysis and ankle brachial indexes. Left Segmental Pressures Left brachial= 125mmHg. Left posterior tibial artery = 110mmHg. Left dorsalis pedis artery = 103mmHg. Left digit = 84 mmHg. The left dorsalis pedis waveforms are biphasic. The left posterior tibial artery waveforms are biphasic. Right Segmental Pressures Right brachial= 124mmHg. Right posterior tibial artery = 148mmHg. Right dorsalis pedis artery = 141mmHg. Right digit = 105. mmHg. The right dorsalis pedis waveforms are triphasic. The right posterior tibial artery waveforms are triphasic. Indices The right ankle brachial index by the dorsalis pedis is 1.13. The right ankle brachial index by the posterior tibial artery is 1.18. The right digital-brachial index is 0.84. The left ankle brachial index by the dorsalis pedis is 0.82. The left ankle brachial index by the posterior tibial artery is 0.88. The left digital-brachial index is 0.67. VL/Ankle Brachial Index Interpretation Summary Right WING 1.18, normal. TBI and Doppler/PVR waveforms of the right ankle normal at rest. Left WING 0.88, moderate arterial insufficiency. Doppler/PVR waveforms of the le ft ankle moderately diminished at rest. Ordering Physician: Nevin Mistry Referring Physician: Trevon Astudillo MD Performed By: Leah Goncalves RVT
--- NOTE | 2023-12-15 09:55 | ADUL_ITS ---
Reason For Study: S/P Fem-Pop Bypass Right Velocities Ext. Iliac Artery, dist = 130.7 cm./sec. Common Femoral Artery, mid = 134.5 cm./sec. R Fem-Pop bypass Inflow, 149.1 cm/sec. Prox Anast, 89.8 cm/sec. Prox Graft, 49.3 cm/sec. Mid Graft, 85.7 cm/sec. Dist Graft, 72.9 cm/sec. Dist Anast, 72.3 cm/sec. Outflow, 33.9 cm/sec. Profunda Femoral Artery = 61.4 cm./sec. Post. Tibial Artery, prox = 43.5 cm./sec. Post. Tibial Artery, mid = 50.5 cm./sec. Post. Tibial Artery, dist = 34.8 cm./sec. Peroneal Artery, prox = 41.8 cm./sec. Peroneal Artery, mid = 40 cm./sec. Peroneal Artery,dist = 27.8 cm./sec. Ant. Tibial Artery, prox = 47 cm./sec. Ant. Tibial Artery, mid = 51.4 cm./sec. Ant. Tibial Artery, dist = 42.7 cm./sec. Procedure Exam performed in department. /US Art Duplex Unilat Lower Ext Interpretation Summary Patent right femoral-popliteal bypass with normal velocities and no evidence of stenosis. Ordering Physician: Nevin Mistry Referring Physician: Trevon Astudillo MD Performed By: Leah Goncalves RVT
== END | disposition home or self-care (01) ==
LOC: CVS 09:55
PROVIDERS: PCP Family Medicine; Referring Provider Physician Assistant; Visit Provider Physician Assistant
DX: Z48.812 Encounter for surgical aftercare following surgery on the circulatory system (principal); Z95.828 Presence of other vascular implants and grafts
CPT/HCPCS: 93922; 93926

== ENCOUNTER → 2024-02-03 | Outpatient (CLI) | payer MEDICARE, OTHER, SELFPAY ==
--- NOTE | 2024-02-03 12:30 | BD_ITS ---
STUDY: DUAL ENERGY X-RAY ABSORPTIOMETRY / DXA REASON FOR EXAM: Male, 83 years old. 733.00OsteoporosisBONE DENSITY REASON FOR EXAM TECHNIQUE: Bone Mineral Density (BMD) measurements of lumbar spine and bilateral hips were obtained. COMPARISON: Comparison is made with prior study dated April 01, 2019. FINDINGS: Lumbar Spine (L1-L4): g/cm2 (1.282) / T-score (1.8) / Z-score (3.0) Findings are suggestive of normal bone density with a low fracture risk. Left Femur Total: g/cm2 (0.922) / T-score (-0.7) / Z-score (0.4) Left Femoral Neck: g/cm2 (0.769) / T-score (-1.2) / Z-score (0.4) Right Femur Total: g/cm2 (0.943) / T-score (-0.6) / Z-score (0.5) Right Femoral Neck: g/cm2 (0.805) / T-score (-0.9) / Z-score (0.6) The T-Scores on the most recent prior examination were: Lumbar Spine (L1-L4): There has been improvement of bone density since the previous examination. Left Femur Total: which represents a worsening of 1.2%. Right Femur Total: which represents a worsening of 4.7%. BD/Dexa Bone Density Study IMPRESSION: The patient is considered osteopenic as outlined below according to World Dimas Organization (WHO) criteria with a low fracture risk. There has been worsening of bone density since the previous examination. Reference Information: The T-score is the number of standard deviations above or below the standard which is normal for young adults at their peak bone mineral density. The World Health Organization (WHO) interprets the T-scores as follows: Above -1 Normal bone density Between -1 and -2.5 Osteopenia Equal to / or below -2.5 Osteoporosis As a practical clinical guideline, osteopenia may be graded as follows: Mild -1 through -1.5 Moderate -1.6 through -2.0 Severe -2.1 through -2.4 The Z-score is the number of standard deviations above or below age-matched controls. A Z-score of less than -1.5 would be considered abnormal. References: 1. NIH Osteoporosis and Related Bone Diseases www osteo.org 2. International Society for Clinical Densitometry www iscd.org 3. National Osteoporosis Foundation www nof.org Electronically Signed: Devin Mackay MD at 13:27 EDT ,
== END | disposition home or self-care (01) ==
LOC: OPBD 12:23
PROVIDERS: PCP Family Medicine; Referring Provider Family Medicine; Visit Provider Family Medicine
DX: M35.3 Polymyalgia rheumatica (principal); M85.88 Other specified disorders of bone density and structure, other site
CPT/HCPCS: 77080

== ENCOUNTER → 2024-06-10 | Outpatient (CLI) | payer MEDICARE, OTHER, SELFPAY ==
[2024-06-10 12:38] LABS: Erythrocyte Sedimentation Rate 13 mm/hr (0-20)
[2024-06-10 12:40] LABS: Absolute Lymphocyte Count 2.28 X10^3/uL (0.83-4.51); Absolute Neutrophil Count 3.7 X10^3/uL (2.0-7.7); Basophil# 0.04 X10^3/uL; Basophil% 0.6 % (0-1); Eosinophil# 0.38 X10^3/uL; Eosinophils% 5.2 % (0-5); Hematocrit 43.8 % (40-54); Hemoglobin 14.9 g/dL (13.0-16.5); Lymphocyte # 2.28 X10^3/ul (0.83-4.51); Lymphocyte % 31.4 % (19-41); Mean Corpuscular Hgb 33.9 pg (27.0-32.0); Mean Corpuscular Volume 99.5 fL (80-94); Monocyte# 0.82 X10^3/uL; Monocyte% 11.3 % (0-10); NRBC Flagged by Analyzer 0 % (0-5); Neutrophil # 3.73 X10^3/uL (2.7-7.7); Neutrophil % 51.2 % (47-70); Platelet Count 214 K/mm3 (150-450); RBC Distribution Width CV 12.7 % (11.6-14.6); RBC Distribution Width SD 46.5 fl (35.1-43.9); White Blood Count 7.3 K/mm3 (4.4-11.0)
[2024-06-10 13:23] LABS: ALB/GLOB Ratio 1.4 RATIO (0.9-2.4); AST(SGOT) 34 U/L (<=37); Alanine Aminotransfer ALT/SGPT 15 U/L (<=46); Albumin, Serum 4.4 g/dL (3.4-4.8); Alkaline Phosphatase 84 U/L (40-129); Anion Gap 12 (5-15); BUN 38 mg/dL (4-19); BUN/Creat Ratio 23.4 RATIO (10-20); Calcium,Total 9.7 mg/dL (7.6-11.0); Chloride 104 mmol/L (98-108); Creatinine, Serum 1.62 mg/dL (0.70-1.20); EST Glomerular Filtration Rate 42 (>60); Globulin 3.2 g/dL (2.2-4.2); Glucose 84 mg/dL (70-99); Potassium 4.8 mmol/L (3.3-5.1); Protein, Total 7.6 g/dL (5.9-8.4); Sodium Level 139 mmol/L (133-145); Total Bilirubin 0.46 mg/dL (0.00-1.30); Vitamin D,25 Hydroxy 70.8 ng/mL (30-100)
[2024-06-10 13:45] LABS: Cholesterol 150 mg/dL (<=200); High Density Lipoprotein 63 mg/dL; Low Density Lipoprotein Calc. 70 mg/dL; Triglycerides 84 mg/dL; Very Low Density Lipoprotein 17 mg/dL (5-40); cholesterol:hdl ratio screen 2.39
== END | disposition home or self-care (01) ==
LOC: MFPLAB 08:17
PROVIDERS: PCP Family Medicine; Referring Provider Family Medicine; Visit Provider Family Medicine
DX: K21.9 Gastro-esophageal reflux disease without esophagitis (principal); E78.2 Mixed hyperlipidemia; E03.9 Hypothyroidism, unspecified; M35.3 Polymyalgia rheumatica
CPT/HCPCS: 36415; 80053; 80061; 82306; 84443; 85025; 85652

== ENCOUNTER → 2024-12-08 | Outpatient (CLI) | payer MEDICARE, OTHER, SELFPAY ==
--- NOTE | 2024-12-08 08:53 | ADUL_ITS ---
Reason For Study Reason For Study: HX R to L FEM/FEM BPG - Rt FEM/POP BPG - Rt EIA Stent Right Velocities Left Velocities Ext. Iliac Artery distal stent= 151.7 cm/s R to L Fem-Fem bypass. Ext. Iliac Artery post stent= 138.6 cm./sec. Common Femoral Artery, mid = 160.4 cm./sec. Prox Anast, 184.0 cm/sec. R Fem-Pop bypass Prox Graft, 80.6 cm/sec. Mid Graft, 93.2 cm/sec. Prox Anast, 126.7 cm/sec. Dist Graft, 107.3 cm/sec. Prox Graft, 95.6 cm/sec. Dist Anast, 162.2 cm/sec. Mid Graft, 151.6 cm/sec. Outflow L SFA, 79.0 cm/sec. Dist Graft, 203.6 cm/sec. Dist Anast, 111.7 cm/sec. Anastomosis appears tortuous Outflow, 90.7 cm/sec. Profunda Femoral Artery = 60.7 cm./sec. Post. Tibial Artery, prox = 65.8 cm./sec. Post. Tibial Artery, mid = 59.2 cm./sec. Post. Tibial Artery, dist = 38.4 cm./sec. Peroneal Artery, prox = 51.5 cm./sec. Peroneal Artery, mid =39.5 cm./sec. Peroneal Artery,dist = 34.0 cm./sec. Ant. Tibial Artery, prox =69.1 cm./sec. Ant. Tibial Artery, mid = 59.2 cm./sec. Ant. Tibial Artery, dist = 41.7 cm./sec. /US Art Duplex Unilat Lower Ext Interpretation Summary Patent right-left femoral-femoral bypass with normal velocities and no evidence of stenosis. Patent right femoral-popliteal bypass with increased velocities at mid graft, 2 1-49% stenosis. Ordering Physician: Nevin Mistry Referring Physician: Trevon Astudillo Performed By: Lebron Epstein RVT and Student
--- NOTE | 2024-12-08 08:53 | ART_ITS ---
Reason For Study Reason For Study: HX R to L FEM/FEM BPG - Rt FEM/POP BPG - Rt EIA Stent Procedure A bilateral lower extremity continuous wave Doppler with analog waveform analysis and ankle brachial indexes. Left Segmental Pressures Left brachial= 131mmHg. Left posterior tibial artery = 76mmHg. Left dorsalis pedis artery = 62mmHg. Left digit = 41 mmHg. The left posterior tibial artery waveforms are biphasic. The left dorsalis pedis waveforms are biphasic. Right Segmental Pressures Right brachial= 141mmHg. Right posterior tibial artery = 142mmHg. Right dorsalis pedis artery = 140mmHg. Right digit = 132 mmHg. The right posterior tibial artery waveforms are biphasic. The right dorsalis pedis waveforms are triphasic. Indices The right ankle brachial index by the posterior tibial artery is 1.01. The right ankle brachial index by the dorsalis pedis is 0.99. The right digital-brachial index is 0.94. The left ankle brachial index by the posterior tibial artery is 0.54. The left ankle brachial index by the dorsalis pedis is 0.44. The left digital-brachial index is 0.41. VL/Ankle Brachial Index Interpretation Summary Right WING 1.01, normal. TBI and Doppler/PVR waveforms of the right ankle normal at rest. Left WING 0.54, moderate arterial insufficiency. Doppler/PVR waveforms of the le ft ankle moderately diminished at rest. Ordering Physician: Nevin Mistry Referring Physician: Trevon Astudillo MD Performed By: Lebron Epstein RVT and Student
[2024-12-08 11:43] LABS: PSA,Total- Diagnostic 0.02 ng/mL (0.00-4.00)
== END | disposition home or self-care (01) ==
PROVIDERS: Urology; PCP Family Medicine; Referring Provider Physician Assistant; Visit Provider Physician Assistant
DX: C61 Malignant neoplasm of prostate (principal); Z48.812 Encounter for surgical aftercare following surgery on the circulatory system; Z95.828 Presence of other vascular implants and grafts; I73.9 Peripheral vascular disease, unspecified
CPT/HCPCS: 36415; 84153; 93922; 93926